=== PATIENT | male | born 1935 | race Hispanic/Latino ===

== ENCOUNTER 2016-10-01 08:33 | Inpatient (IN) | payer MEDICARE, BC ==
--- NOTE | 2016-10-01 09:03 | ED PDOC ---
Arrival/HPI - General Chief Complaint: Medical Clearance Time Seen by Provider: 10/01/16 08:44 Historian: Patient, Family (Daughter) - History of Present Illness Narrative History of Present Illness (Text): 10/01/16 08:51 A 81 year old male, whose past medical history includes hypertension, aortic valve replacement, cardiac stent, [place] and CVA, was brought into the emergency department by daughter complaining of drowsiness this morning. Daughter reports patient has been experiencing hallucinations for the past 4 days. Patient was seen by neurologist yesterday and had an brain MRI scheduled this morning. Patient was started on Seroquel last night and woke up feeling drowsy. Daughter was unable to arouse patient and brought him in for further evaluation. Patient denies any headache, dizziness, weakness, numbness, speech changes, vision changes, fever, chills, body aches, nausea, vomiting, diarrhea, abdominal pain, urinary symptoms, chest pain, shortness of breath, cough or any other complaints. PMD: Dr. iMchael Neurologist: Dr. Byrnes Networking Specialist: Dr. 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) Symptom Course: Resolved Quality: Other Context: Home Past Medical History - Provider Review Nursing Documentation Reviewed: Yes - Infectious Disease Hx of Infectious Diseases: None - Tetanus Immunization Tetanus Immunization: Unknown - Cardiac Hx Hypertension: Yes Other/Comment: 1 cardiac stent - Pulmonary Hx Pneumonia: Yes (2x since ) - Neurological Hx Dizziness: Yes Hx Transient Ischemic Attacks (TIA): Yes Hx Vertigo: Yes - Musculoskeletal/Rheumatological Hx Falls: No - Gastrointestinal Hx Gastrointestinal Disorders: Yes (DOUBLE HERNIA REPAIR) Hx Gastroesophageal Reflux: Yes Hx Nausea: Yes - Genitourinary/Gynecological Hx Genitourinary Disorders: Yes (URINARY FREQUENCY) - Psychiatric Hx Depression: Yes Hx Emotional Abuse: No Hx Physical Abuse: No Hx Substance Use: No - Surgical History Hx Angioplasty: Yes Hx Coronary Artery Bypass Graft: Yes - Anesthesia Hx Anesthesia: No - Suicidal Assessment Feels Threatened In Home Enviroment: No Family/Social History - Physician Review Nursing Documentation Reviewed: Yes Family/Social History: No Known Family HX Smoking Status: Former Smoker Hx Alcohol Use: No Hx Substance Use: No Hx Substance Use Treatment: No Allergies/Home Meds Allergies/Adverse Reactions: Allergies No Known Allergies Allergy (Verified 10/01/16 13:44) Home Medications: Home Meds Medication Instructions Recorded Confirmed Simvastatin [Zocor] 40 mg PO HS 11/07/15 10/01/16 Aspirin [Ecotrin] 81 mg PO DAILY 10/01/16 10/01/16 Benazepril HCl [Lotensin] 20 mg PO DAILY 10/01/16 10/01/16 Bumetanide [Bumex] 0.5 mg PO DAILY 10/01/16 10/01/16 Metoprolol Tartrate [Lopressor] 25 mg PO BID 10/01/16 10/01/16 Omeprazole 20 mg PO DAILY 10/01/16 10/01/16 Paroxetine HCl [Paxil] 20 mg PO DAILY 10/01/16 10/01/16 Quetiapine Fumarate [Seroquel] 50 mg PO HS 10/01/16 10/01/16 Ranitidine HCl [Acid Librarian 150] 150 mg PO BID 10/01/16 10/01/16 Review of Systems - Physician Review All systems were reviewed & negative as marked: Yes - Review of Systems Constitutional: Other (Drowsiness). absent: Fevers, Night Sweats Eyes: absent: Vision Changes Respiratory: absent: SOB, Cough Cardiovascular: absent: Chest Pain Gastrointestinal: absent: Abdominal Pain, Diarrhea, Nausea, Vomiting Genitourinary Male: absent: Dysuria, Frequency, Hematuria, Urinary Output Changes Musculoskeletal: absent: Myalgias Neurological: absent: Headache, Dizziness, Focal Weakness (or numbness), Speech Changes Psychiatric: Other (Hallucinations) Physical Exam Vital Signs Reviewed: Yes Vital Signs Temp Pulse Resp BP Pulse Ox 10/01/16 13:08 44 L 16 146/68 95 10/01/16 10:50 45 L 21 150/65 94 L 10/01/16 10:29 49 L 167/122 H 10/01/16 09:51 47 L 16 167/122 H 90 L 10/01/16 08:43 96 10/01/16 08:35 98.5 F 48 L 18 169/94 H 89 L Temperature: Afebrile Blood Pressure: Hypertensive Pulse: Bradycardic Respiratory Rate: Normal Appearance: Positive for: Well-Appearing, Non-Toxic, Comfortable Pain Distress: None Mental Status: Positive for: Alert and Oriented X 3. No: Confused, Agitated, Lethargic - Systems Exam Head: Present: Atraumatic, Normocephalic Pupils: Present: PERRL Extroacular Muscles: Present: EOMI Conjunctiva: Present: Normal Mouth: Present: Moist Mucous Membranes Neck: Present: Normal Range of Motion Respiratory/Chest: Present: Clear to Auscultation, Good Air Exchange. No: Respiratory Distress, Accessory Muscle Use Cardiovascular: Present: Regular Rate and Rhythm, Normal S1, S2. No: Murmurs Abdomen: Present: Normal Bowel Sounds. No: Tenderness, Distention, Peritoneal Signs Back: Present: Normal Inspection Upper Extremity: Present: Normal Inspection. No: Cyanosis, Edema Lower Extremity: Present: Normal Inspection. No: Edema Neurological: Present: GCS=15, CN II-XII Intact, Speech Normal Skin: Present: Warm, Dry, Normal Color. No: Rashes Psychiatric: Present: Alert, Oriented x 3, Normal Insight, Normal Concentration Medical Decision Making ED Course and Treatment: 10/01/16 08:51 Impression: A 81 year old male with drowsiness. Patient took Seroquel last night, had a brain MRI scheduled this morning. Physical exam unremarkable, patient is alert and oriented times 3. Will order brain MRI as requested by neurologist which was scheduled for this morning. Differential Diagnosis included but are not limited to: Drowsiness secondary to medication reaction, rule out electrolyte imbalance Plan: -- Brain MRI -- EKG -- Labs -- Urinalysis -- Reassess and disposition Progress Notes: 10/01/16 09:[address] Byrnes, who states to reduce the dosage of Seroquel from 50 mg to 25 mg. He asks to complete the brain MRI today and if results are negative patient can be discharged home. 10/01/16 09:21 EKG shows sinus bradycardia at 40 BPM with 1st degree AV block, non-specific intraventricular block. Interpreted by me. Report Date : 10/01/2016 12:57:16 PROCEDURE: MRI BRAIN WITHOUT CONTRAST Dictator : Yehuda Thomas MD IMPRESSION: No acute findings 10/01/16 Patient's BP was elevated and treated with Labetolol. Patient is on beta- regulo at home. HR stable at 40's throughout ED stay. BP improved. Patient's CXR showed b/l infiltrates consistent with Pneumonia and also to consider CHF. Patient and family deny cough, fever or shortness of breathe. There is no lower extremity edema or lung crackles or jvd. BNP was elevated. No Lasix was given at this time and treated for PNA with Cefepime IV. Venous shock panel and LA was normal. PCO2 was elevated. Patient is in no apparently respiratory distress. Oxy sat well at 90% on oxygen. 90% on RA. I discussed the case with Dr. Michael twice with updates on blood work. He requested Dr. Rosales for cardiology. We agreed that patient was stable for Medicine Floor. On reevaluation prior to admission, patient was AAOx3 and smiling as he converses with family. He was hungry so we ordered him a heart healthy diet. His family was explained results and they agree with plan for admission. - Lab Interpretations Lab Results: 10/01/16 09:00 10/01/16 09:00 Lab Results 10/01/16 09:00: WBC 9.5 D, RBC 4.30, Hgb 13.4 L, Hct 40.8 L, MCV 94.9, MCH 31.2 , MCHC 32.8, RDW 14.4, Plt Count 251, MPV 10.4, Gran % 70.7 H, Lymph % (Auto) 14.0 L, [place] % (Auto) 8.1 H, Eos % (Auto) 6.9 H, Baso % (Auto) 0.3, Gran # 6.68 H, Lymph # 1.3, [place] # 0.8 H, Eos # 0.7, Baso # 0.03, Sodium 137, Potassium 4.0 , Chloride 96 L, Carbon Dioxide 35 H, Anion Gap 10, BUN 24 H, Creatinine 1.0, Est GFR ( Amer) > 60, Est GFR (Non-Af Amer) > 60, Random Glucose 101, Calcium 9.3, Phosphorus 3.4, Magnesium 1.3 L, Total Bilirubin 1.6 H, AST 44, ALT 51, Alkaline Phosphatase 68, Lactate Dehydrogenase 736 H, Total Creatine Kinase 120, Troponin I 0.06 D, Total Protein 6.9, Albumin 3.4, Globulin 3.5, Albumin/Globulin Ratio 1.0 L, Alcohol, Quantitative < 10 I have reviewed the lab results: Yes - RAD Interpretation Radiology Orders: 10/01/16 08:56 BRAIN WITHOUT CONTRAST [MRI] Stat 10/01/16 09:45 CXR [CHEST PORTABLE] [RAD] Stat - Medication Orders Current Medication Orders: Aspirin (Ecotrin) 81 mg PO DAILY [facility] Atorvastatin Calcium (Lipitor) 20 mg PO HS [facility] Azithromycin (Zithromax) 500 mg PO DAILY [facility] PRN Reason: Protocol Famotidine (Pepcid) 20 mg PO BID [facility] Furosemide (Lasix) 20 mg IVP Q12 [facility] Lisinopril (Zestril) 20 mg PO DAILY [facility] Metoprolol Tartrate (Lopressor) 25 mg PO BID [facility] Pantoprazole Sodium (Protonix Ec Tab) 40 mg PO ACB [facility] Paroxetine HCl (Paxil) 20 mg PO DAILY [facility] Discontinued Medications Albuterol/Ipratropium (Duoneb 3 Mg/0.5 Mg (3 Ml) Ud) 3 ml IH STAT STA Stop: 10/01/16 09:53 Last Admin: 10/01/16 10:31 Dose: 3 ML Sodium Chloride (Sodium Chloride 0.9%) 500 mls @ 999 mls/hr IV .Q31M STA Stop: 10/01/16 10:39 Last Admin: 10/01/16 10:29 Dose: 999 MLS/HR eMAR Start Stop Document 10/01/16 10:29 HI (Rec: 10/01/16 10:29 [place] [id number]) Intravenous Solution Start Date 10/01/16 Start Time 10:29 Cefepime HCl (Maxipime 2gm) 100 mls @ 100 mls/hr IVPB STAT STA PRN Reason: Protocol Stop: 10/01/16 11:27 Last Admin: 10/01/16 11:07 Dose: 100 MLS/HR eMAR Start Stop Document 10/01/16 11:07 HI (Rec: 10/01/16 11:07 [place] [id number]) Intravenous Solution Start Date 10/01/16 Start Time 11:07 Labetalol HCl (Trandate) 10 mg IV STAT STA Stop: 10/01/16 09:53 Last Admin: 10/01/16 10:29 Dose: 10 MG MAR Pulse and Blood Pressure Document 10/01/16 10:29 HI (Rec: 10/01/16 10:30 [place] [id number]) Pulse Pulse Rate (60-90) 49 Blood Pressure Blood Pressure (100/60-150/90) 167/122 eMAR Start Stop Document 10/01/16 10:29 HI (Rec: 10/01/16 10:30 [place] [id number]) Intravenous Solution Start Date 10/01/16 Start Time 10:30 - Scribe Statement The provider has reviewed the documentation as recorded by the Scribe Lois Painter Provider Scribe Attestation: All medical record entries made by the Scribe were at my direction and personally dictated by me. I have reviewed the chart and agree that the record accurately reflects my personal performance of the history, physical exam, medical decision making, and the department course for this patient. I have also personally directed, reviewed, and agree with the discharge instructions and disposition. Disposition/Present on Arrival - Present on Arrival Any Indicators Present on Arrival: No History of DVT/PE: No History of Uncontrolled Diabetes: No Urinary Catheter: No History of Decub. Ulcer: No History Surgical Site Infection Following: None - Disposition Have Diagnosis and Disposition been Completed?: Yes Diagnosis: Medication reaction, Pneumonia Disposition: HOSPITALIZED Disposition Time: 10:46 Patient Plan: Admission Condition: FAIR
[2016-10-01 09:28] LABS: ADD MANUAL DIFF? NO
[2016-10-01 09:40] LABS: ALKALINE PHOSPHATASE 68 U/L (38-133); ALT/SGPT 51 U/L (7-56); AST/SGOT 44 U/L (15-59); BASO # 0.03 K/mm3 (0.0-2.0); BASO % 0.3 % (0.0-3.0); BILIRUBIN,TOTAL 1.6 mg/dL (0.2-1.3); BLOOD UREA NITROGEN 24 mg/dL (7-21); CALCIUM 9.3 mg/dL (8.4-10.5); CARBON DIOXIDE 35 mmol/L (21-33); CHLORIDE 96 mmol/L (98-107); EOS # 0.7 (0.0-0.7); EOS % 6.9 % (1.5-5.0); GFR AFRICAN-AMERICAN > 60; GLUCOSE,RANDOM 101 mg/dL (70-110); GRAN # 6.68 (1.4-6.5); GRAN % 70.7 % (50.0-68.0); HEMATOCRIT 40.8 % (42.0-52.0); LYMPH # 1.3 (1.2-3.4); MAGNESIUM 1.3 mg/dL (1.7-2.2); MEAN CELL VOLUME 94.9 fL (80.0-105.0); MEAN CORPUSCULAR HEMOGLOBIN 31.2 pg (25.0-35.0); MEAN CORPUSCULAR HGB CONC 32.8 g/dl (31.0-37.0); MEAN PLATELET VOLUME 10.4 fl (7.0-11.0); MONO # 0.8 (0.1-0.6); MONO % 8.1 % (1.0-6.0); PHOSPHOROUS 3.4 mg/dL (2.5-4.5); PLATELET COUNT 251 10^3/uL (120.0-450.0); RED CELL DISTRIBUTION WIDTH 14.4 % (11.5-14.5); SODIUM 137 mmol/L (132-148); TOTAL PROTEIN 6.9 g/dL (5.8-8.3); WHITE BLOOD COUNT 9.5 10^3/ul (4.5-11.0)
[2016-10-01 09:51] LABS: TROPONIN I 0.06 ng/mL
[2016-10-01] MEDS ORDERED: Labetalol 5 mg/ml Inj 20ML IV STA (09:52)
[2016-10-01] MEDS ORDERED: Albuterol-Ipratrop 3 mg / 0.5 (3 ml) UD IH STA (09:52)
[2016-10-01] MEDS ORDERED: Sodium Chloride 0.9% 500 ML IV STA (10:09)
--- NOTE | 2016-10-01 10:18 | RAD ---
HISTORY: r/o pna COMPARISON: 08/05/2016 FINDINGS: LUNGS: Infiltrate at right lung base and left perihilar infiltrate suspicious for pneumonia versus CHF PLEURA: No significant pleural effusion identified, no pneumothorax apparent. CARDIOVASCULAR: Normal. OSSEOUS STRUCTURES: There is moderate scoliosis convex to the right VISUALIZED UPPER ABDOMEN: Normal. OTHER FINDINGS: None. IMPRESSION: Infiltrate at right lung base and left perihilar infiltrate suspicious for pneumonia versus CHF
[2016-10-01] MEDS ORDERED: Cefepime IV 2 gm in NS 100 ML IVPB STA (10:28)
[2016-10-01 11:19] LABS: VENOUS BLOOD GAS BASE EXCESS 6.5 mmol/L (0.0-2.0); VENOUS BLOOD PH 7.27 (7.32-7.43)
[2016-10-01 11:27] LABS: PH,URINE 5.5 (4.7-8.0); URINE BILIRUBIN SMALL (NEGATIVE); URINE BLOOD TRACE-INTACT (NEGATIVE); URINE GLUCOSE (UA) NEGATIVE (NEGATIVE); URINE KETONE NEGATIVE (NEGATIVE); URINE LEUKOCYTE ESTERASE TRACE Leu/uL (NEGATIVE); URINE PROTEIN 100 mg/dL (<30 mg/dL)
[2016-10-01 11:33] LABS: URINE APPEARANCE CLEAR (CLEAR); URINE COLOR YELLOW (YELLOW)
[2016-10-01 12:06] LABS: URINE RBC 0 - 2 /hpf (0-2)
[2016-10-01 12:07] LABS: URINE BACTERIA FEW (NEG); URINE EPITHELIAL CELLS 0 - 2 /hpf (0-5)
--- NOTE | 2016-10-01 12:58 | MRI ---
PROCEDURE: MRI BRAIN WITHOUT CONTRAST HISTORY: altered mental status COMPARISON: 12/13/2015 TECHNIQUE: Multiplanar, multisequence MR images of the brain were obtained without intravenous contrast enhancement. FINDINGS: HEMORRHAGE: None DWI: No evidence of an acute or early subacute infarction. BRAIN PARENCHYMA: No mass effect or edema. Chronic microvascular changes are seen in the periventricular white matter. No acute findings VENTRICLES: Unremarkable. No hydrocephalus. CRANIUM: Unremarkable. ORBITS: Grossly unremarkable. PARANASAL SINUSES/MASTOIDS: Clear VASCULAR SYSTEM: Skull base flow voids intact. OTHER FINDINGS: None. IMPRESSION: No acute findings
[2016-10-01 17:08] VITALS: BMI 22.8
[2016-10-01] MEDS ORDERED: Pneumococcal 23-Valent Vaccine IM ONE (17:08)
[2016-10-01] MEDS ORDERED: Non Formulary Medication (Simvastatin [Zocor] 40 MG) PO SCH (22:00)
[2016-10-02] MEDS: Pantoprazole 40 mg EC Tab PO SCH (09:23)
[2016-10-02] MEDS ORDERED: Magnesium Sulfate 2 GM in Sodium Chloride 0.9% 100 ML IV ONE (10:24)
--- NOTE | 2016-10-02 10:35 | CON ---
DATE: 10/02/2016 INDICATIONS: Altered mental status, bradycardia. HISTORY OF PRESENT ILLNESS: This is an 81-year-old man admitted yesterday when he was found to have several days of altered mental status with hallucinations. He has been seen by Dr. Byrnes and his Seroquel was increased. He became unresponsive and was brought to the Emergency Room. He was found to have bradycardia with a heart rate in the 40s and hypertension. He was given labetalol. The chest x-ray shows a questionable pneumonia. He was admitted to 5. Today, he is resting comfortably in bed. He does not describe chest pain or shortness of breath. There is no orthopnea, PND, syncope, vertigo, palpitation, edema, claudication, fever, chills, cough, sputum production, hemoptysis, abdominal pain, nausea, vomiting, diarrhea, constipation, or melena. PAST MEDICAL HISTORY: Notable for hypertension, remote aortic valve replacement , coronary artery disease with myocardial infarction and coronary intervention. He has moderate mitral regurgitation on an echocardiogram last year. There is a history of hyperlipidemia, scoliosis, cognitive dysfunction and left bundle branch block. There is no history of diabetes. There is a history of stroke. There is no history of gout, rheumatic fever, congestive heart failure , arrhythmia. MEDICATIONS: At the time of admission include simvastatin, aspirin, Lotensin, Bumex, metoprolol, omeprazole, Paxil, Seroquel, Zantac. ALLERGIES: There are no known medication allergies. SOCIAL HISTORY: He lives at home. He does not smoke cigarettes. He does not drink alcohol. He is ambulatory. FAMILY HISTORY: Noncontributory. REVIEW OF SYSTEMS: A 10-point review of systems otherwise unremarkable except as noted above. PHYSICAL EXAMINATION: GENERAL: He is an elderly man resting in bed on 5R in no acute distress. VITAL SIGNS: Heart rate is in the 40s with a blood pressure of 140/57. O2 sat 95% on room air and nasal cannula, respirations 18. HEENT: Reveals no neck vein distention, thyromegaly, or carotid bruit. Mucous membranes moist. Conjunctivae are pink. NECK: Supple. LUNGS: Lung willson scattered rhonchi. HEART: Revealed normal first and second heart sounds with a systolic murmur along the left sternal border. ABDOMEN: Soft. Bowel sounds were present. No mass, organomegaly, tenderness, rebound, guarding, CVA tenderness or palpable abdominal aortic aneurysm. EXTREMITIES: Revealed no cyanosis, clubbing, or edema. NEUROLOGIC: He was awake, alert and oriented. SKIN: Warm and dry. No rash or cellulitis. PSYCHIATRIC: Normal as to mood and affect. LABORATORY AND IMAGING: A chest x-ray is a portable study. It is read as infiltrate at the right base and left perihilar infiltrate suspicious for pneumonia versus CHF. Marked scoliosis is noted. Electrocardiogram demonstrates sinus bradycardia with markedly prolonged first degree heart block and left bundle branch block. A brain MRI reveals no acute findings. White count is normal, hemoglobin 13.4, hematocrit 40.8, platelet count 251,000. Electrolytes notable for a chloride of 96, carbon dioxide 35, BUN 24, creatinine 1.0, blood sugar 101, magnesium low at 1.3. Total bilirubin elevated at 1.6. AST, ALT, alk phos unremarkable. CK 120. Troponins negative x 2. BNP 3590. Urinalysis is noted. Toxic screen is negative. Alcohol less than 10. IMPRESSION: The patient is an 81-year-old man admitted with altered mental status over the course of several days while on increased dose of Seroquel, found to have bradycardia with markedly prolonged SD interval and left bundle branch block which is chronic. Possible pneumonia, possible congestive heart failure, history of aortic valve replacement, prior myocardial infarction and coronary stent. At this time, I would transfer him to a telemetry bed for cardiac monitoring. I will put his metoprolol on hold. I would put Seroquel on hold if it is okay with neurology. I am suspicious that there may be episodes of high grade AV block beyond what we have seen so far. His magnesium should be replaced. I will check an echocardiogram. He will have a neurologic evaluation. He has been cultured. He is getting antibiotics for possible pneumonia. We will continue aspirin, Lasix, Lipitor, Paxil, Pepcid, Protonix, lisinopril and Zithromax. We will check stool for occult blood. We will monitor I's and O's. He can be out of bed to a chair. I will follow along with you. I will make additional recommendations based on his clinical course. Uriel Bronson MD cc: [id number] TT: 10/02/2016 10:34:42 Confirmation # [id number] Dictation # [id number] MTDD
--- NOTE | 2016-10-02 10:59 | HP ---
HISTORY OF PRESENT ILLNESS: An 81-year-old white male with history of coronary artery disease and CV A in the past, history of mild hypertension, severe kyphoscoliosis. The patient recently had seen Dr Babmi Byrnes and was put on Seroquel at night for possible MRI of the brain. The patient had severe fat igue and weakness in the morning followed by shortness of breath, was brought to Emergency Room by th e family, was found to have congestive heart failure with BNP of over 3500 and possible pneumonia wit h normal white count. The patient was afebrile. The patient was also bradycardic with heart rate do wn into the low 40s. The patient had been on metoprolol at home. The patient denies tobacco, alcoho l abuse. PAST SURGICAL HISTORY: Noncontributory. SOCIAL HISTORY: He is nonsmoker, nondrinker. REVIEW OF SYSTEMS: Positive for fatigue, weakness, and drowsiness. He denies chest pain, palpitatio ns. He does complain of shortness of breath and some cough, is nonproductive. He denies any fever, chills. He denies any nausea, vomiting, diarrhea. He does complain of some difficulty with balance, some paresthesias of the extremities and some lightheadedness for his neurological review of systems . PAST MEDICAL HISTORY: Includes fatigue and weakness dating 1 day. PHYSICAL EXAMINATION: GENERAL: Shows a well-developed but tall, fatigued white male in no apparent distress. HEENT: Essentially normal limits. HEART: Regular sinus rhythm with a systolic ejection murmur at left sternal border, bradyarrhythmia and a positive S4. CHEST: He has a left kyphoscoliosis. LUNGS: He has decreased breath sounds at the right base and rales at the left base. Percussion is n ormal except for decreased percussion at the right base. ABDOMEN: Benign. EXTREMITIES: Without cyanosis, clubbing or edema. NEUROLOGIC: The patient is awake and oriented x 3. Neurologic examination grossly intact. Strength is equal in the upper and lower extremities. Reflexes are 2+ bilateral and balance is not done at t his point because the patient's fatigue. IMPRESSION: An 81-year-old white male with history of coronary artery disease, history of cerebrovas cular accident, kyphoscoliosis, presenting with congestive heart failure, bradyarrhythmia and possibl e pneumonia. Treatment is as stated in the chart. Ramy Michael MD cc: [id number] TT: 10/02/2016 10:58:59 jn
--- NOTE | 2016-10-02 11:11 | CARD ---
APPROVED REPORT EKG Measurement Heart [id number] <Conclusion> Sinus bradycardia with markedly prolomged NC LBBB
[2016-10-02] MEDS: Magnesium Sulfate 2 GM in Dextrose 5% In Water 100 ML IV ONE ×2 (12:25→13:26)
[2016-10-02] MEDS: Magnesium Oxide 400 mg Tab UD PO SCH (17:43)
[2016-10-03 07:21] LABS: BLOOD UREA NITROGEN 21 mg/dL (7-21); CALCIUM 9.1 mg/dL (8.4-10.5); CARBON DIOXIDE 36 mmol/L (21-33); CHLORIDE 94 mmol/L (95-110); GFR AFRICAN-AMERICAN > 60; GLUCOSE,RANDOM 88 mg/dL (70-110); MAGNESIUM 1.5 mg/dL (1.7-2.2); POTASSIUM 3.9 mmol/L (3.6-5.0); SODIUM 137 mmol/L (132-148)
--- NOTE | 2016-10-03 07:43 | CP.PCM.PN ---
Subjective - Date & Time of Evaluation Date of Evaluation: 10/03/16 Time of Evaluation: 08:00 - Subjective Subjective: Stable on 2R. No CP, SOB, dizziness or syncope. He is not sure if he wants a PPM. We will d/w his daughter as well. V/S noted. Mostly CHB with VR 40 - 50's PE: Lungs: clear Cor.: sys. murmur Abd.: soft Ext.: no edema Neuro.: alert Labs noted: Mg++= 1.5 BC x2 NG at 24 hrs. ECG 10/02: CHB, LBBB Objective - Vital Signs/Intake and Output Vital Signs (last 24 hours): Temp Pulse Resp BP Pulse Ox 97.3 F L 85 20 177/69 H 94 L 10/03/16 05:41 10/03/16 05:41 10/03/16 05:41 10/03/16 05:41 10/03/16 05:41 Intake and Output: 10/03/16 10/03/16 06:59 18:59 Output Total 1425 Balance -1425 - Medications Medications: Current Medications Aspirin (Ecotrin) 81 mg PO DAILY [facility] Last Admin: 10/02/16 09:23 Dose: 81 mg Atorvastatin Calcium (Lipitor) 20 mg PO HS [facility] Last Admin: 10/02/16 22:57 Dose: 20 mg Azithromycin (Zithromax) 500 mg PO DAILY [facility] PRN Reason: Protocol Last Admin: 10/02/16 09:24 Dose: 500 mg Famotidine (Pepcid) 20 mg PO BID [facility] Last Admin: 10/02/16 17:48 Dose: 20 mg Furosemide (Lasix) 20 mg IVP Q12 [facility] Last Admin: 10/02/16 22:57 Dose: 20 mg Lisinopril (Zestril) 20 mg PO DAILY [facility] Last Admin: 10/02/16 12:59 Dose: 20 mg Magnesium Oxide (Mag-Ox) 400 mg PO BID [facility] Last Admin: 10/02/16 17:43 Dose: 400 mg Metoprolol Tartrate (Lopressor) 25 mg PO BID [facility] Last Admin: 10/02/16 09:14 Dose: Not Given Pantoprazole Sodium (Protonix Ec Tab) 40 mg PO ACB [facility] Last Admin: 10/02/16 09:23 Dose: 40 mg Paroxetine HCl (Paxil) 20 mg PO DAILY [facility] Last Admin: 10/02/16 09:23 Dose: 20 mg - Labs Labs: 10/03/16 06:57 Assessment and Plan - Assessment and Plan (Free Text) Plan: Assessment: AMS CHB with VR 40 - 50'2 Possible pneumonia AVR CAD/LA/PCI CVA HBP Kyphoscoliosis Plan: Continue off metoprolol and monitor on tel. Avoid neg. chronotopic meds. PPM if he will agree. I will speak with his daughter. IV > PO Lasix PO mag. AB as per Dr. Alec VILLARREAL with assistance only. High Fall Risk. Monitor: labs, tel., I/O, Mg++ level, etc.
[2016-10-03] MEDS: Pantoprazole 40 mg EC Tab PO SCH (09:31)
--- NOTE | 2016-10-03 09:32 | CARD ---
APPROVED REPORT EKG Measurement Heart [id number] <Conclusion> CHB with VR 48 BPM LBBB pattern
--- NOTE | 2016-10-03 09:53 | CARD ---
APPROVED REPORT EKG Measurement Heart [id number] <Conclusion> Probably CHB with VR at 46 BPM. LBBB pattern
[2016-10-03] MEDS: Magnesium Oxide 400 mg Tab UD PO SCH ×2 (09:56→17:12)
--- NOTE | 2016-10-04 05:37 | CP.PCM.PN ---
Subjective - Date & Time of Evaluation Date of Evaluation: 10/04/16 Time of Evaluation: 05:37 - Subjective Subjective: Patient was seen at bed side because his BP was 192/75. Has no complaints. Denies headache, dizziness, heaviness in head, lightheadedness,chest pain, sob. Medical record was reviewed. This 81 year old man was admitted sob, weakness, fatigue,CHF, PNA?Bradycardia. Has PMH of HTN, CAD ,CVA, Kyphoscoliosis, AVR, [place]. Objective - Vital Signs/Intake and Output Vital Signs (last 24 hours): Temp Pulse Resp BP Pulse Ox 98.0 F 51 L 19 172/73 H 95 10/04/16 00:01 10/04/16 00:01 10/04/16 00:01 10/04/16 00:01 10/04/16 00:01 Intake and Output: 10/03/16 10/04/16 18:59 06:59 Intake Total 740 Output Total 650 Balance 90 - Medications Medications: Current Medications Aspirin (Ecotrin) 81 mg PO DAILY REPLACED BY [facility] Last Admin: 10/03/16 09:56 Dose: 81 mg Atorvastatin Calcium (Lipitor) 20 mg PO HS REPLACED BY [facility] Last Admin: 10/03/16 21:32 Dose: 20 mg Azithromycin (Zithromax) 500 mg PO DAILY REPLACED BY [facility] PRN Reason: Protocol Last Admin: 10/03/16 09:56 Dose: 500 mg Famotidine (Pepcid) 20 mg PO BID REPLACED BY [facility] Last Admin: 10/03/16 17:12 Dose: 20 mg Furosemide (Lasix) 40 mg PO DAILY REPLACED BY [facility] Last Admin: 10/03/16 09:57 Dose: 40 mg Lisinopril (Zestril) 20 mg PO DAILY REPLACED BY [facility] Last Admin: 10/03/16 09:57 Dose: 20 mg Magnesium Oxide (Mag-Ox) 400 mg PO BID REPLACED BY [facility] Last Admin: 10/03/16 17:12 Dose: 400 mg Pantoprazole Sodium (Protonix Ec Tab) 40 mg PO ACB REPLACED BY [facility] Last Admin: 10/03/16 09:31 Dose: 40 mg Paroxetine HCl (Paxil) 20 mg PO DAILY REPLACED BY [facility] Last Admin: 10/03/16 09:57 Dose: 20 mg - Labs Labs: 10/03/16 06:57 - Constitutional Appears: Well, No Acute Distress - Head Exam Head Exam: ATRAUMATIC, NORMAL INSPECTION, NORMOCEPHALIC - Eye Exam Eye Exam: Normal appearance - ENT Exam ENT Exam: Normal External Ear Exam - Neck Exam Neck Exam: Normal Inspection - Respiratory Exam Respiratory Exam: NORMAL BREATHING PATTERN - Cardiovascular Exam Cardiovascular Exam: absent: JVD - GI/Abdominal Exam GI & Abdominal Exam: absent: Distended - Rectal Exam Rectal Exam: Deferred - Extremities Exam Extremities Exam: Normal Inspection - Back Exam Back Exam: NORMAL INSPECTION - Neurological Exam Neurological Exam: Alert, Oriented x3 - Psychiatric Exam Psychiatric exam: Normal Affect, Normal Mood - Skin Skin Exam: Normal Color Assessment and Plan - Assessment and Plan (Free Text) Assessment: A/P:Elevated blood pressure reading. CHF. PNA? HTN. Will give lisinopril now instead of at 10AM. Continue present management.
[2016-10-04 07:28] LABS: BLOOD UREA NITROGEN 23 mg/dL (7-21); CALCIUM 9.2 mg/dL (8.4-10.5); CARBON DIOXIDE 35 mmol/L (21-33); CHLORIDE 95 mmol/L (98-107); GFR AFRICAN-AMERICAN > 60; GLUCOSE,RANDOM 85 mg/dL (70-110); POTASSIUM 4.1 mmol/L (3.6-5.0); SODIUM 136 mmol/L (132-148)
[2016-10-04 07:44] LABS: MAGNESIUM 1.6 mg/dL (1.7-2.2)
[2016-10-04] MEDS: Pantoprazole 40 mg EC Tab PO SCH (08:28)
--- NOTE | 2016-10-04 08:42 | CP.PCM.PN ---
Subjective - Date & Time of Evaluation Date of Evaluation: 10/04/16 Time of Evaluation: 08:00 - Subjective Subjective: Stable on 2R. No CP, SOB, dizziness or syncope. He is still not sure if he wants a PPM. V/S noted. Mostly CHB with VR 40 - 50's PE: Lungs: clear Cor.: sys. murmur Abd.: soft Ext.: no edema Neuro.: alert Labs noted: Mg++= 1.6 BC x2 NG at 48 hrs. ECG 10/03: CHB, LBBB Objective - Vital Signs/Intake and Output Vital Signs (last 24 hours): Temp Pulse Resp BP Pulse Ox 98.0 F 44 L 22 192/75 H 96 10/04/16 05:42 10/04/16 06:06 10/04/16 05:42 10/04/16 06:06 10/04/16 05:42 Intake and Output: 10/04/16 10/04/16 06:59 18:59 Output Total 100 Balance -100 - Medications Medications: Current Medications Amlodipine Besylate (Norvasc) 2.5 mg PO DAILY [facility] Aspirin (Ecotrin) 81 mg PO DAILY [facility] Last Admin: 10/03/16 09:56 Dose: 81 mg Atorvastatin Calcium (Lipitor) 20 mg PO HS [facility] Last Admin: 10/03/16 21:32 Dose: 20 mg Azithromycin (Zithromax) 500 mg PO DAILY [facility] PRN Reason: Protocol Last Admin: 10/03/16 09:56 Dose: 500 mg Famotidine (Pepcid) 20 mg PO BID [facility] Last Admin: 10/03/16 17:12 Dose: 20 mg Furosemide (Lasix) 40 mg PO DAILY [facility] Last Admin: 10/03/16 09:57 Dose: 40 mg Lisinopril (Zestril) 20 mg PO DAILY [facility] Last Admin: 10/04/16 06:06 Dose: 20 mg Magnesium Oxide (Mag-Ox) 400 mg PO BID [facility] Last Admin: 10/03/16 17:12 Dose: 400 mg Pantoprazole Sodium (Protonix Ec Tab) 40 mg PO ACB [facility] Last Admin: 10/04/16 08:28 Dose: 40 mg Paroxetine HCl (Paxil) 20 mg PO DAILY [facility] Last Admin: 10/03/16 09:57 Dose: 20 mg - Labs Labs: 10/04/16 06:30 Assessment and Plan - Assessment and Plan (Free Text) Plan: Assessment: AMS CHB with VR 40 - 50's Possible pneumonia AVR CAD/[place]/PCI CVA HBP Kyphoscoliosis Plan: Continue off metoprolol and monitor on tel. Avoid neg. chronotopic meds. EP Eval./PPM if he will agree. Dr. Friedman will also speak to him. PO Lasix PO mag. Add amlodipine 2.5 mg./day for elevated BPs AB as per Dr. Alec VILLARREAL with assistance only. High Fall Risk. Monitor: labs, tel., I/O, Mg++ level, etc.
--- NOTE | 2016-10-04 09:19 | PN ---
DATE: 10/04/2016 SUBJECTIVE: An 81-year-old white male admitted to the hospital with congestive heart failure and bra dycardia. The patient was taken off his metoprolol. Heart rate still is in the high 40s/low 50s. PHYSICAL EXAMINATION: VITAL SIGNS: The patient's blood pressure is slightly elevated at 192/75. He is afebrile. Average pulse is 44. LUNGS: He has less rales. CARDIAC: His heart rate is bradycardic. LABORATORY DATA: Unremarkable with H and H that is normal. Kidney function is normal. Magnesium is up to 1.6. Troponins are negative x 2. Stool occult blood is negative. His tox screen was negativ e. The patient was seen in consultation by Dr. Bronson. Discussion as far as possible elective pacemaker insertion. The patient has a history of open heart surgery, CVA in the past, chronic obstructive pu lmonary disease, kyphoscoliosis; high blood pressure, he is off metoprolol. We will discuss possible pacemaker with Dr. Friedman over the next several days. 12-POINT REVIEW OF SYSTEMS: Unremarkable. The patient has no complaints of shortness of breath. PLAN: Continue diuretic. Continue blood pressure management. Possible pacemaker in the near future . Ramy Michael MD cc: [id number] TT: 10/04/2016 09:18:42 Confirmation # [id number] Dictation # [id number] sebas
--- NOTE | 2016-10-04 09:30 | CARD ---
APPROVED REPORT EKG Measurement Heart [id number] P65 [id number] <Conclusion> CHB with junctional or idioventricular rhythm, rate = 46 BPM LBBB pattern No change
[2016-10-04] MEDS: Magnesium Oxide 400 mg Tab UD PO SCH ×2 (09:33→17:55)
[2016-10-04 22:53] LABS: BLOOD UREA NITROGEN 25 mg/dL (7-21); CALCIUM 9.2 mg/dL (8.4-10.5); CARBON DIOXIDE 39 mmol/L (21-33); CHLORIDE 93 mmol/L (98-107); GFR AFRICAN-AMERICAN > 60; GLUCOSE,RANDOM 95 mg/dL (70-110); MAGNESIUM 1.5 mg/dL (1.7-2.2); PHOSPHOROUS 3.5 mg/dL (2.5-4.5); POTASSIUM 4.4 mmol/L (3.6-5.0); SODIUM 134 mmol/L (132-148)
--- NOTE | 2016-10-05 01:58 | CP.PCM.PN ---
Subjective - Date & Time of Evaluation Date of Evaluation: 10/05/16 Time of Evaluation: 01:55 - Subjective Subjective: Patient was seen because it was nurse's concern that he was not arousable even after giving a sternal rub.I asked him questions like where is he at, what day, month is this, he answered 'No ' to all questions. Pertinent medical record was reviewed. This 81 year old white male was admitted with fatigue ,weakness, sob, CHF. Has PMH of CHF,CAD, [place] , CVA , COPD,HTN, Kyphoscoliosis. Objective - Vital Signs/Intake and Output Vital Signs (last 24 hours): Temp Pulse Resp BP Pulse Ox 98.2 F 43 L 18 147/92 H 94 L 10/04/16 19:40 10/04/16 22:00 10/04/16 19:40 10/04/16 19:40 10/04/16 19:40 Intake and Output: 10/04/16 10/05/16 18:59 06:59 Intake Total 660 540 Output Total 325 Balance 660 215 - Medications Medications: Current Medications Amlodipine Besylate (Norvasc) 2.5 mg PO DAILY [facility] Last Admin: 10/04/16 09:34 Dose: 2.5 mg Aspirin (Ecotrin) 81 mg PO DAILY [facility] Last Admin: 10/04/16 09:33 Dose: 81 mg Atorvastatin Calcium (Lipitor) 20 mg PO HS [facility] Last Admin: 10/04/16 22:02 Dose: 20 mg Azithromycin (Zithromax) 500 mg PO DAILY [facility] PRN Reason: Protocol Last Admin: 10/04/16 09:35 Dose: 500 mg Famotidine (Pepcid) 20 mg PO BID [facility] Last Admin: 10/04/16 17:55 Dose: 20 mg Furosemide (Lasix) 40 mg PO DAILY [facility] Last Admin: 10/04/16 09:35 Dose: 40 mg Lisinopril (Zestril) 20 mg PO DAILY [facility] Last Admin: 10/04/16 06:06 Dose: 20 mg Magnesium Oxide (Mag-Ox) 400 mg PO BID [facility] Last Admin: 10/04/16 17:55 Dose: 400 mg Pantoprazole Sodium (Protonix Ec Tab) 40 mg PO ACB [facility] Last Admin: 10/04/16 08:28 Dose: 40 mg Paroxetine HCl (Paxil) 20 mg PO DAILY [facility] Last Admin: 10/04/16 09:34 Dose: 20 mg - Labs Labs: 10/04/16 22:37 - Constitutional Appears: Well, No Acute Distress - Head Exam Head Exam: ATRAUMATIC, NORMAL INSPECTION, NORMOCEPHALIC - Eye Exam Eye Exam: Normal appearance Pupil Exam: PERRL - ENT Exam ENT Exam: Normal External Ear Exam - Neck Exam Neck Exam: Normal Inspection - Respiratory Exam Respiratory Exam: NORMAL BREATHING PATTERN - Cardiovascular Exam Cardiovascular Exam: absent: JVD - GI/Abdominal Exam GI & Abdominal Exam: absent: Distended - Rectal Exam Rectal Exam: Deferred - Extremities Exam Extremities Exam: Normal Inspection - Back Exam Back Exam: NORMAL INSPECTION - Neurological Exam Neurological Exam: Altered (mental status) Neuro motor strength exam: Left Upper 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 Lethargy. R/O Co2 retention. R/O electrolyte imbalance. CHF. CAD. Hx [place]. Weakness/Fatigue. BMP,Mag,Phos,ABG. Observation. Discuss with Dr.cardiello ALDANA. Magnesium level was 1.5. A 1 Gm Mag Alexis was ordered. ABG was not done because patient was moving.
[2016-10-05 01:59] VITALS: RESP 20; O2SAT 95
[2016-10-05 05:22] VITALS: BP 161/61; PULSE 44; TEMP 98.3
[2016-10-05 07:27] LABS: BLOOD UREA NITROGEN 24 mg/dL (7-21); CALCIUM 9.2 mg/dL (8.4-10.5); CHLORIDE 94 mmol/L (95-110); GFR AFRICAN-AMERICAN > 60; GLUCOSE,RANDOM 83 mg/dL (70-110); MAGNESIUM 1.8 mg/dL (1.7-2.2); SODIUM 139 mmol/L (132-148)
[2016-10-05 07:37] LABS: CARBON DIOXIDE 39 mmol/L (21-33); POTASSIUM 4.2 mmol/L (3.6-5.0)
[2016-10-05] MEDS: Pantoprazole 40 mg EC Tab PO SCH (08:09)
[2016-10-05 08:54] LABS: ALB/GLOB RATIO 0.9 (1.1-1.8); ALKALINE PHOSPHATASE 60 U/L (38-133); ALT/SGPT 43 U/L (7-56); AST/SGOT 45 U/L (15-59); BILIRUBIN,DIRECT 0.5 mg/dL (0.0-0.4); BILIRUBIN,TOTAL 0.8 mg/dL (0.2-1.3); TOTAL PROTEIN 6.3 g/dL (5.8-8.3)
[2016-10-05 09:15] LABS: INR 1.07 (0.93-1.08)
[2016-10-05] MEDS: Magnesium Oxide 400 mg Tab UD PO SCH (10:46)
--- NOTE | 2016-10-05 18:14 | DS ---
The patient is an 81-year-old white male discharged 10/05/2016 to [facility] for a p acemaker insertion. The patient was persistently bradycardic despite being taken off beta blockers. The patient had some shortness of breath and dyspnea on exertion and also was found to have elevated BNP consistent with congestive heart failure. The patient was evaluated by Dr. Friedman and Dr. Laura galarza and was found in need of a pacemaker. He was transferred to [facility] for a pacemaker inserti on, to follow up as an outpatient. FINAL DISCHARGE DIAGNOSES: , kyphoscoliosis, congestive heart failure acute on top of combined systolic and diastolic heart failure, bradyarrhythmia, history of cerebrovascular accident. Ramy Michael MD cc: [id number] TT: 10/05/2016 18:14:00 wv
--- NOTE | 2016-10-07 11:01 | PQF PNEUMO ---
10/07/16 Dr. Michael, Pneumonia is documented as possible and questionable on several notes. You do not document this on your summary. Was pneumonia ruled out, ruled in, other? If ruled in, was pneumonia present on admission? Thank you. Clarification of your documentation is requested to better reflect the severity of illness and intensity of treatment of your patient. Indicators present [] Documented diagnosis of pneumonia [] X-ray findings: [] Positive Sputum cultures [] Cough w/ fever [] Abnormal lungs sounds [] Poor gag reflex [] Speech consults/swallow evaluation [] Vent dependence [] Other: [] Location in the medical record that reflects the above clinical findings: [] Treatment Provided: [] PHYSICIAN'S RESPONSE Based on your medical judgment of the clinical indicators outlined above, are you treating this patient for a known or suspected: [] Aspiration pneumonia [] Community acquired pneumonia [] Ventilator associated pneumonia [] Viral pneumonia [] Bacterial pneumonia Please specify organism: [] [] Other, please indicate [] If Unable to Determine, please check the box, sign and date. Present On Admission (POA) Indicator: [] Present at the time of admission [] Not present at the time of admission [] Clinically Undetermined In responding to this query, please exercise your independent professional judgment. The fact that a question is asked does not imply that any particular answer is desired or expected. Thank you for your clarification on this documentation. If you have any questions please call:[ ] * Thank you, [ ] postal mail carrier LUCY
--- NOTE | 2016-10-08 08:49 | PQF PNEUMO ---
10/08/16 Dr. Michael, You signed the previous query form on this; however, I do not see your answer to the question. Please indicate whether pneumonia was ruled out, ruled in, undetermined for this patient. If pneumonia was ruled in, was this present on admission? Thank you. Clarification of your documentation is requested to better reflect the severity of illness and intensity of treatment of your patient. Indicators present [] Documented diagnosis of pneumonia [] X-ray findings: [] Positive Sputum cultures [] Cough w/ fever [] Abnormal lungs sounds [] Poor gag reflex [] Speech consults/swallow evaluation [] Vent dependence [] Other: [] Location in the medical record that reflects the above clinical findings: [] Treatment Provided: [] PHYSICIAN'S RESPONSE Based on your medical judgment of the clinical indicators outlined above, are you treating this patient for a known or suspected: [] Aspiration pneumonia [] Community acquired pneumonia [] Ventilator associated pneumonia [] Viral pneumonia [] Bacterial pneumonia Please specify organism: [] [] Other, please indicate [] If Unable to Determine, please check the box, sign and date. Present On Admission (POA) Indicator: [] Present at the time of admission [] Not present at the time of admission [] Clinically Undetermined In responding to this query, please exercise your independent professional judgment. The fact that a question is asked does not imply that any particular answer is desired or expected. Thank you for your clarification on this documentation. If you have any questions please call:[ ] * Thank you, [ ] financial representative LUCY
== END 2016-10-05 11:55 | disposition home or self-care (01) | DRG 293 ==
LOC: ED 08:33 → ERH 10:46 → 5RNO 15:57 → 2RNO 10-02 10:03
PROVIDERS: ADMIT Internal Medicine; ATTEND Internal Medicine
DX: I11.0 Hypertensive heart disease with heart failure (principal); J44.9 Chronic obstructive pulmonary disease, unspecified; R00.1 Bradycardia, unspecified; I50.41 Acute combined systolic (congestive) and diastolic (congestive) heart failure; M41.9 Scoliosis, unspecified; I34.0 Nonrheumatic mitral (valve) insufficiency; I44.7 Left bundle-branch block, unspecified; E78.5 Hyperlipidemia, unspecified; I25.10 Atherosclerotic heart disease of native coronary artery without angina pectoris; K21.9 Gastro-esophageal reflux disease without esophagitis; Z79.82 Long term (current) use of aspirin; Z79.899 Other long term (current) drug therapy; Z86.73 Personal history of transient ischemic attack (TIA), and cerebral infarction without residual deficits; Z87.01 Personal history of pneumonia (recurrent); Z95.1 Presence of aortocoronary bypass graft; Z95.2 Presence of prosthetic heart valve; Z95.5 Presence of coronary angioplasty implant and graft; R11.0 Nausea; R35.0 Frequency of micturition; F32.89 Other specified depressive episodes; Z87.891 Personal history of nicotine dependence; R40.2412 Glasgow coma scale score 13-15, at arrival to emergency department; I44.0 Atrioventricular block, first degree; T50.905A Adverse effect of unspecified drugs, medicaments and biological substances, initial encounter; R40.4 Transient alteration of awareness; I25.2 Old myocardial infarction

== ENCOUNTER 2016-10-06 14:33 | Inpatient (IN) | payer OTHER, BC ==
[2016-10-06] MEDS: Magnesium Oxide 400 mg Tab UD PO SCH (17:32)
[2016-10-06 17:47] VITALS: BMI 30.4
[2016-10-06] MEDS ORDERED: Pneumococcal 23-Valent Vaccine IM ONE (17:47)
[2016-10-07] MEDS: Pantoprazole 20 mg EC Tab PO SCH (05:59)
--- NOTE | 2016-10-07 07:45 | CP.PCM.PN ---
Subjective - Date & Time of Evaluation Date of Evaluation: 10/07/16 Time of Evaluation: 08:00 - Subjective Subjective: Stable in TCU S/P PPM at [facility]. Went well. He feels OK but weak. No CP, SOB or incisional pain. PE: Lungs: clear Cor.: S1S2 Abd.: soft Ext.: no edema Neuro.; alert Wound: healing well. Objective - Vital Signs/Intake and Output Vital Signs (last 24 hours): Temp Pulse Resp BP Pulse Ox 98.3 F 80 20 163/95 H 94 L 10/07/16 06:00 10/07/16 06:00 10/07/16 06:00 10/07/16 06:00 10/07/16 06:00 - Medications Medications: Current Medications Amlodipine Besylate (Norvasc) 2.5 mg PO DAILY [facility] PRN Reason: Protocol Aspirin (Ecotrin) 81 mg PO DAILY [facility] PRN Reason: Protocol Atorvastatin Calcium (Lipitor) 20 mg PO DIN [facility] PRN Reason: Protocol Last Admin: 10/06/16 17:32 Dose: 20 mg Azithromycin (Zithromax) 500 mg PO DAILY [facility] PRN Reason: Protocol Stop: 10/11/16 10:00 Furosemide (Lasix) 40 mg PO DAILY [facility] PRN Reason: Protocol Lisinopril (Zestril) 20 mg PO DAILY [facility] PRN Reason: Protocol Magnesium Oxide (Mag-Ox) 400 mg PO BID [facility] PRN Reason: Protocol Last Admin: 10/06/16 17:32 Dose: 400 mg Pantoprazole Sodium (Protonix Ec Tab) 20 mg PO 0600 [facility] PRN Reason: Protocol Last Admin: 10/07/16 05:59 Dose: 20 mg Paroxetine HCl (Paxil) 20 mg PO DAILY [facility] PRN Reason: Protocol Assessment and Plan - Assessment and Plan (Free Text) Plan: Assessment: S/P PPM for CHB AVR CAD/[place]/PCI CVA HB Kyphoscoliosis Plan: Check labs and ECG Continue current meds OOB/PT/Rehab Pacer F/U to be arranged on D/C.
--- NOTE | 2016-10-07 08:49 | HP ---
HISTORY OF PRESENT ILLNESS: An 81-year-old white male with a history of CAD, CVA, COPD, kyphoscolios is, status post pacemaker insertion at [facility]. The patient was transferred to [facility] for rehab. The patient has a history of poor balance secondary to a stroke and microvascular dise ase. PHYSICAL EXAMINATION: GENERAL: Shows a well-developed, thin, tall white male with severe kyphoscoliosis to the left in no apparent ____. The patient has a recent left anterior superior chest incision glued together for his pacemaker. HEART: Regular sinus rhythm. CHEST: Shows decreased breath sounds, but no rales bilaterally. EXTREMITIES: Without cyanosis, clubbing, or edema. NEUROLOGIC: Grossly intact. IMPRESSION: Status post pacemaker for bradyarrhythmia, history of coronary artery disease, history o f cerebrovascular accident, and severe deconditioning and imbalance. Ramy Michael MD cc: [id number] TT: 10/07/2016 08:49:31 jn
[2016-10-07] MEDS: Magnesium Oxide 400 mg Tab UD PO SCH ×2 (10:40→17:59)
--- NOTE | 2016-10-07 15:25 | CARD ---
APPROVED REPORT EKG Measurement Heart [id number] <Conclusion> Atria sensed ventricular paced rhythm
[2016-10-08] MEDS: Pantoprazole 20 mg EC Tab PO SCH (06:11)
[2016-10-08 06:26] LABS: ADD MANUAL DIFF? NO
[2016-10-08 06:47] LABS: BASO # 0.06 K/mm3 (0.0-2.0); BASO % 0.9 % (0.0-3.0); EOS # 0.9 (0.0-0.7); EOS % 13.2 % (1.5-5.0); GRAN # 3.37 (1.4-6.5); GRAN % 50.3 % (50.0-68.0); HEMATOCRIT 37.9 % (42.0-52.0); LYMPH # 1.7 (1.2-3.4); LYMPH % 25.6 % (22.0-35.0); MEAN CELL VOLUME 95.9 fL (80.0-105.0); MEAN CORPUSCULAR HEMOGLOBIN 31.1 pg (25.0-35.0); MEAN CORPUSCULAR HGB CONC 32.5 g/dl (31.0-37.0); MEAN PLATELET VOLUME 9.6 fl (7.0-11.0); MONO # 0.7 (0.1-0.6); PLATELET COUNT 243 10^3/uL (120.0-450.0); RED CELL DISTRIBUTION WIDTH 13.8 % (11.5-14.5); WHITE BLOOD COUNT 6.7 10^3/ul (4.5-11.0)
[2016-10-08 06:59] LABS: BLOOD UREA NITROGEN 25 mg/dL (7-21); CALCIUM 9.4 mg/dL (8.4-10.5); CARBON DIOXIDE 38 mmol/L (21-33); CHLORIDE 92 mmol/L (95-110); GFR AFRICAN-AMERICAN > 60; GLUCOSE,RANDOM 83 mg/dL (70-110); MAGNESIUM 1.6 mg/dL (1.7-2.2); POTASSIUM 4.7 mmol/L (3.6-5.0); SODIUM 134 mmol/L (132-148)
--- NOTE | 2016-10-08 07:39 | CP.PCM.PN ---
Subjective - Date & Time of Evaluation Date of Evaluation: 10/08/16 Time of Evaluation: 08:00 - Subjective Subjective: Stable in TCU S/P PPM at [facility]. Went well. He feels OK but weak. No CP, SOB or incisional pain. + amb with PT yesterday. PE: Lungs: clear Cor.: S1S2 Abd.: soft Ext.: no edema Neuro.; alert Wound: healing well. Labs 10/07 noted. Mg.++ = 1.6 ECG 10/07: V. paced. Atrial sensed. Objective - Vital Signs/Intake and Output Vital Signs (last 24 hours): Temp Pulse Resp BP Pulse Ox 98.4 F 76 14 127/61 98 10/07/16 15:52 10/07/16 15:52 10/07/16 15:52 10/07/16 15:52 10/07/16 15:52 - Medications Medications: Current Medications Amlodipine Besylate (Norvasc) 5 mg PO DAILY [facility] Last Admin: 10/07/16 10:40 Dose: Not Given Aspirin (Ecotrin) 81 mg PO 0800 [facility] PRN Reason: Protocol Atorvastatin Calcium (Lipitor) 20 mg PO 1700 [facility] PRN Reason: Protocol Azithromycin (Zithromax) 500 mg PO DAILY [facility] PRN Reason: Protocol Stop: 10/11/16 10:00 Last Admin: 10/07/16 10:42 Dose: 500 mg Furosemide (Lasix) 40 mg PO DAILY [facility] PRN Reason: Protocol Last Admin: 10/07/16 10:36 Dose: 40 mg Lisinopril (Zestril) 20 mg PO DAILY [facility] PRN Reason: Protocol Last Admin: 10/07/16 10:41 Dose: 20 mg Magnesium Oxide (Mag-Ox) 400 mg PO BID [facility] PRN Reason: Protocol Last Admin: 10/07/16 17:59 Dose: 400 mg Pantoprazole Sodium (Protonix Ec Tab) 20 mg PO 0600 [facility] PRN Reason: Protocol Last Admin: 10/08/16 06:11 Dose: 20 mg Paroxetine HCl (Paxil) 20 mg PO DAILY [facility] PRN Reason: Protocol Last Admin: 10/07/16 10:41 Dose: 20 mg - Labs Labs: 10/08/16 06:00 10/08/16 06:00 Assessment and Plan - Assessment and Plan (Free Text) Plan: Assessment: S/P PPM for CHB AVR CAD/[place]/PCI CVA HB Kyphoscoliosis Plan: Continue current meds and PO mag. OOB/PT/Rehab Pacer F/U to be arranged on D/C.
--- NOTE | 2016-10-08 09:50 | PN ---
DATE: 10/08/2016 An 81-year-old white male transferred from [facility] to [facility] after pacemaker inser tion for bradyarrhythmia. The patient is doing well, doing physical therapy and occupational therapy . He is afebrile. Vital signs are stable. Blood pressure 127/61. LABORATORY DATA: Unremarkable except for a slightly elevated BUN of 25, potassium is good. Vital signs are stable. The patient to continue physical therapy and occupational therapy and contin ue to monitor his recent pacemaker insertion. Ramy Michael MD cc: [id number] TT: 10/08/2016 09:49:46 Confirmation # [id number] Dictation # [id number] tn
[2016-10-08] MEDS: Magnesium Oxide 400 mg Tab UD PO SCH ×2 (10:32→18:31)
[2016-10-09] MEDS: Pantoprazole 20 mg EC Tab PO SCH (05:31)
--- NOTE | 2016-10-09 07:25 | CP.PCM.PN ---
Subjective - Date & Time of Evaluation Date of Evaluation: 10/09/16 Time of Evaluation: 08:00 - Subjective Subjective: Stable in TCU S/P PPM at [facility]. Went well. He feels OK but weak. No CP, SOB or incisional pain. + amb with PT yesterday. PE: Lungs: clear Cor.: S1S2 Abd.: soft Ext.: no edema Neuro.; alert Wound: healing well. Labs 10/07 noted. Mg.++ = 1.6 ECG 10/07: V. paced. Atrial sensed. Objective - Vital Signs/Intake and Output Vital Signs (last 24 hours): Temp Pulse Resp BP Pulse Ox 98 F 69 20 108/58 L 99 10/09/16 05:56 10/09/16 05:56 10/09/16 05:56 10/09/16 05:56 10/09/16 05:56 Intake and Output: 10/09/16 10/09/16 06:59 18:59 Intake Total 520 Balance 520 - Medications Medications: Current Medications Amlodipine Besylate (Norvasc) 5 mg PO DAILY [facility] Last Admin: 10/08/16 10:32 Dose: 5 mg Aspirin (Ecotrin) 81 mg PO 0800 [facility] PRN Reason: Protocol Last Admin: 10/08/16 08:57 Dose: 81 mg Atorvastatin Calcium (Lipitor) 20 mg PO 1700 [facility] PRN Reason: Protocol Last Admin: 10/08/16 18:30 Dose: 20 mg Azithromycin (Zithromax) 500 mg PO DAILY [facility] PRN Reason: Protocol Stop: 10/11/16 10:00 Last Admin: 10/08/16 10:35 Dose: 500 mg Furosemide (Lasix) 40 mg PO DAILY [facility] PRN Reason: Protocol Last Admin: 10/08/16 10:31 Dose: 40 mg Lisinopril (Zestril) 20 mg PO DAILY [facility] PRN Reason: Protocol Last Admin: 10/08/16 10:34 Dose: 20 mg Magnesium Oxide (Mag-Ox) 400 mg PO BID [facility] PRN Reason: Protocol Last Admin: 10/08/16 18:31 Dose: 400 mg Pantoprazole Sodium (Protonix Ec Tab) 20 mg PO 0600 [facility] PRN Reason: Protocol Last Admin: 10/09/16 05:31 Dose: 20 mg Paroxetine HCl (Paxil) 20 mg PO DAILY [facility] PRN Reason: Protocol Last Admin: 10/08/16 10:33 Dose: 20 mg - Labs Labs: 10/08/16 06:00 10/08/16 06:00 Assessment and Plan - Assessment and Plan (Free Text) Plan: Assessment: S/P PPM for CHB AVR CAD/OR/PCI CVA HB Kyphoscoliosis Plan: Continue current meds and PO mag. OOB/PT/Rehab Pacer F/U to be arranged on D/C.
--- NOTE | 2016-10-09 10:05 | PN ---
DATE: 10/09/2016 This is an 81-year-old white male transferred from [facility] after pacemaker insertion, for pamela re bradycardia, history of CAD, history of CVA in the past, history of kyphoscoliosis. The patient is doing well with physical therapy and occupational therapy. His wound is clean and dry . He is healing well. He is still complaining of pain at the incision site, otherwise he continues eventful. VITAL SIGNS: He is afebrile. Vital signs are stable. Blood pressure 108/58, heart rate is 69. LABORATORY DATA: unremarkable. Ramy Michael MD cc: [id number] TT: 10/09/2016 10:04:54 Confirmation # [id number] Dictation # [id number] lyric
[2016-10-09] MEDS: Magnesium Oxide 400 mg Tab UD PO SCH ×2 (10:39→17:05)
[2016-10-10] MEDS: Pantoprazole 20 mg EC Tab PO SCH (05:37)
--- NOTE | 2016-10-10 07:02 | CP.PCM.PN ---
Subjective - Date & Time of Evaluation Date of Evaluation: 10/10/16 Time of Evaluation: 08:00 - Subjective Subjective: Stable in TCU S/P PPM at [facility]. Went well. He feels OK but weak. No CP or SOB. + ambulation. PE: Lungs: clear Cor.: S1S2 Abd.: soft Ext.: no edema Neuro.; alert Wound: healing well. Labs 10/07 noted. Mg.++ = 1.6 ECG 10/07: V. paced. Atrial sensed. Objective - Vital Signs/Intake and Output Vital Signs (last 24 hours): Temp Pulse Resp BP Pulse Ox 98.3 F 77 20 110/61 97 10/09/16 16:00 10/09/16 16:00 10/09/16 16:00 10/09/16 16:00 10/09/16 16:00 - Medications Medications: Current Medications Amlodipine Besylate (Norvasc) 5 mg PO DAILY [facility] Last Admin: 10/09/16 10:39 Dose: 5 mg Aspirin (Ecotrin) 81 mg PO 0800 NUZHAT PRN Reason: Protocol Last Admin: 10/09/16 08:17 Dose: 81 mg Atorvastatin Calcium (Lipitor) 20 mg PO 1700 NUZHAT PRN Reason: Protocol Last Admin: 10/09/16 17:04 Dose: 20 mg Azithromycin (Zithromax) 500 mg PO DAILY NUZHAT PRN Reason: Protocol Stop: 10/11/16 10:00 Last Admin: 10/09/16 10:41 Dose: 500 mg Fluocinonide (Lidex 0.05% Cream) 0 gm TOP BID NUZHAT Last Admin: 10/09/16 17:05 Dose: 1 applic Furosemide (Lasix) 40 mg PO DAILY NUZHAT PRN Reason: Protocol Last Admin: 10/09/16 10:38 Dose: 40 mg Lisinopril (Zestril) 20 mg PO DAILY NUZHAT PRN Reason: Protocol Last Admin: 10/09/16 10:40 Dose: 20 mg Magnesium Oxide (Mag-Ox) 400 mg PO BID NUZHAT PRN Reason: Protocol Last Admin: 10/09/16 17:05 Dose: 400 mg Pantoprazole Sodium (Protonix Ec Tab) 20 mg PO 0600 NUZHAT PRN Reason: Protocol Last Admin: 10/10/16 05:37 Dose: 20 mg Paroxetine HCl (Paxil) 20 mg PO DAILY NUZHAT PRN Reason: Protocol Last Admin: 10/09/16 10:40 Dose: 20 mg - Labs Labs: 10/08/16 06:00 10/08/16 06:00 Assessment and Plan - Assessment and Plan (Free Text) Plan: Assessment: S/P PPM for CHB AVR CAD/WI/PCI CVA HB Kyphoscoliosis Plan: Continue current meds and PO mag. OOB/PT/Rehab Pacer F/U to be arranged on D/C.
[2016-10-10] MEDS: Magnesium Oxide 400 mg Tab UD PO SCH ×2 (10:54→17:16)
--- NOTE | 2016-10-10 11:16 | PN ---
DATE: 10/10/2016 An 81-year-old white male, exercising at physical therapy, doing well with physical therapy and occup ational therapy. However, having severe hypoxia when he is walking without oxygen, desaturating into the 80s. The patient is status post pacemaker insertion. PHYSICAL EXAMINATION: CHEST: Clear to auscultation and percussion. HEART: Sinus rhythm. VITAL SIGNS: Heart rate is approximately 77, 110/61 blood pressure. BUN and creatinine are stable. White count is stable. IMPRESSION: Status post pacemaker for severe bradycardia, chronic obstructive pulmonary disease, his tory of cerebrovascular accident, history of coronary artery disease and severe hypoxia. Ramy Michael MD cc: [id number] TT: 10/10/2016 11:15:57 Confirmation # [id number] Dictation # [id number] en
--- NOTE | 2016-10-11 07:53 | CP.PCM.PN ---
Subjective - Date & Time of Evaluation Date of Evaluation: 10/11/16 Time of Evaluation: 08:00 - Subjective Subjective: Stable in TCU S/P PPM at [facility]. Went well. He feels OK but weak. No CP or SOB. + ambulation. PE: Lungs: clear Cor.: S1S2 Abd.: soft Ext.: no edema Neuro.; alert Wound: healing well. Labs 10/07 noted. Mg.++ = 1.6 ECG 10/07: V. paced. Atrial sensed. Objective - Vital Signs/Intake and Output Vital Signs (last 24 hours): Temp Pulse Resp BP Pulse Ox 98 F 73 20 135/70 97 10/10/16 16:00 10/10/16 16:00 10/10/16 16:00 10/10/16 16:00 10/10/16 16:00 - Medications Medications: Current Medications Amlodipine Besylate (Norvasc) 5 mg PO DAILY [facility] Last Admin: 10/10/16 10:59 Dose: 5 mg Aspirin (Ecotrin) 81 mg PO 0800 NUZHAT PRN Reason: Protocol Last Admin: 10/10/16 08:46 Dose: 81 mg Atorvastatin Calcium (Lipitor) 20 mg PO 1700 NUZHAT PRN Reason: Protocol Last Admin: 10/10/16 17:17 Dose: 20 mg Azithromycin (Zithromax) 500 mg PO DAILY NUZHAT PRN Reason: Protocol Stop: 10/11/16 10:00 Last Admin: 10/10/16 10:57 Dose: 500 mg Fluocinonide (Lidex 0.05% Cream) 0 gm TOP BID [facility] Last Admin: 10/10/16 17:16 Dose: 1 applic Furosemide (Lasix) 40 mg PO DAILY NUZHAT PRN Reason: Protocol Last Admin: 10/10/16 10:53 Dose: 40 mg Lisinopril (Zestril) 20 mg PO DAILY NUZHAT PRN Reason: Protocol Last Admin: 10/10/16 10:56 Dose: 20 mg Magnesium Oxide (Mag-Ox) 400 mg PO BID NUZHAT PRN Reason: Protocol Last Admin: 10/10/16 17:16 Dose: 400 mg Pantoprazole Sodium (Protonix Ec Tab) 20 mg PO 0600 NUZHAT PRN Reason: Protocol Last Admin: 10/10/16 05:37 Dose: 20 mg Paroxetine HCl (Paxil) 20 mg PO DAILY NUZHAT PRN Reason: Protocol Last Admin: 10/10/16 10:56 Dose: 20 mg - Labs Labs: 10/08/16 06:00 10/08/16 06:00 Assessment and Plan - Assessment and Plan (Free Text) Plan: Assessment: S/P PPM for CHB AVR CAD/DE/PCI CVA HB Kyphoscoliosis Plan: Mg.++ level pending Continue current meds and PO mag. OOB/PT/Rehab Pacer F/U to be arranged on D/C. F/U CXR
[2016-10-11 08:08] LABS: BLOOD UREA NITROGEN 37 mg/dL (7-21); CALCIUM 9.7 mg/dL (8.4-10.5); CHLORIDE 92 mmol/L (95-110); GFR AFRICAN-AMERICAN > 60; GLUCOSE,RANDOM 82 mg/dL (70-110); MAGNESIUM 1.8 mg/dL (1.7-2.2); POTASSIUM 5.3 mmol/L (3.6-5.0); SODIUM 137 mmol/L (132-148)
[2016-10-11 08:45] LABS: CARBON DIOXIDE 40 mmol/L (21-33)
--- NOTE | 2016-10-11 09:35 | PN ---
DATE: 10/11/2016 An 81-year-old white male status post pacemaker, status post COPD, kyphoscoliosis, CHF resolving. Th e patient is doing well, ambulating, doing physical therapy and occupational therapy. However, he lee s been desatting when he does his physical therapy. He is being evaluated for home oxygen. PLAN: Is to continue physical therapy and occupational therapy, and evaluate for home oxygen and als o do a CT of the chest because of hypoxia. Ramy Michael MD cc: [id number] TT: 10/11/2016 09:34:50 Confirmation # [id number] Dictation # [id number] jn
[2016-10-11] MEDS: Magnesium Oxide 400 mg Tab UD PO SCH ×2 (11:00→17:21)
[2016-10-12] MEDS: Magnesium Oxide 400 mg Tab UD PO SCH ×2 (09:46→17:45)
--- NOTE | 2016-10-12 16:48 | PN ---
DATE: 10/12/2016 The patient is an 81-year-old white male admitted to the hospital status post pacemaker insertion, CH F, COPD, kyphoscoliosis. The patient is hypoxic with ambulation and with physical therapy. CT of th e chest shows no evidence of active disease or vascular disease. The patient is to continue physical therapy and occupational therapy and will be discharged home in the next 48 hours. Ramy Michael MD cc: [id number] TT: 10/12/2016 16:47:15 Confirmation # [id number] Dictation # [id number] rn
[2016-10-13] MEDS: Pantoprazole 20 mg EC Tab PO SCH (06:13)
--- NOTE | 2016-10-13 10:24 | PN ---
DATE: 10/13/2016 The patient is an 81-year-old white male admitted to the hospital with status post pacemaker insertio n, bradyarrhythmia, COPD, kyphoscoliosis, CHF, history of CVA. The patient is doing well with physic al therapy and occupational therapy supplemental oxygen at home, which is being arranged. We w ill discharge the patient most likely in the morning. Continue physical therapy and occupational the rapy. The patient has no complaints. A 12-point review of systems is unremarkable. Ramy Michael MD cc: [id number] TT: 10/13/2016 10:24:13 Confirmation # [id number] Dictation # [id number]
[2016-10-13] MEDS: Magnesium Oxide 400 mg Tab UD PO SCH ×2 (10:31→18:22)
--- NOTE | 2016-10-13 11:25 | PN ---
DATE: 10/13/2016 SUBJECTIVE: The patient is seen lying in bed on the transitional care unit. He continues to feel so mewhat weak. He apparently continues to require nasal oxygen. Plans are being made for possible dis charge later in the week. He is seen in the presence of his daughter. He denies any chest pain or l ightheadedness. CURRENT MEDICATIONS: Include Ecotrin, Lasix 40 mg daily, Lipitor 20 mg daily, Norvasc 5 mg daily, Pa xil 20 mg daily, Zestril 20 mg daily and Protonix 20 mg daily. OBJECTIVE: GENERAL: He is an elderly man who appears anxious, but otherwise comfortable. VITAL SIGNS: Blood pressure is 112/62 with a pulse of 76, respirations are 14. He is afebrile. HEENT: No JVD. CHEST: Bilateral scattered rhonchi heard. Pacemaker site clean and dry. HEART: PMI displaced laterally with a systolic murmur at left sternal border. ABDOMEN: Soft, nontender, normoactive bowel sounds. EXTREMITIES: Trace ankle edema. DIAGNOSTIC DATA: Blood work from yesterday revealed potassium 5.3, BUN and creatinine are 37 and 1.1 . IMPRESSION: 1. Recent permanent pacemaker implant for marked conduction system disease. 2. Gait imbalance and deconditioning. 3. History of severe aortic stenosis, status post aortic valve replacement. 4. Status post prior cerebrovascular accident. 5. History of coronary artery disease, status post prior myocardial infarction and PCI. 6. Severe kyphoscoliosis. RECOMMENDATIONS: Current cardiac medications should be continued at present, pacemaker followup will be arranged upon discharge. Resumption of beta regulo therapy can be considered at a later date. We will continue to follow and make further recommendations as appropriate as well as arrange for out patient followup upon discharge. Chinedu Friedman MD cc: [id number] TT: 10/13/2016 11:24:23 Confirmation # [id number] Dictation # [id number] an
[2016-10-13 17:09] VITALS: O2SAT 91
[2016-10-14] MEDS: Pantoprazole 20 mg EC Tab PO SCH (05:52)
--- NOTE | 2016-10-14 07:46 | CP.PCM.PN ---
Subjective - Date & Time of Evaluation Date of Evaluation: 10/14/16 Time of Evaluation: 07:00 - Subjective Subjective: Stable in TCU S/P PPM at [facility]. Went well. He feels OK but weak. No CP or SOB. + ambulation. D/C planned for today PE: Lungs: clear Cor.: S1S2 Abd.: soft Ext.: no edema Neuro.; alert Wound: healing well. ecchymosis noted. Old blood migrating by gravity into lower chest wall. Labs 10/07 noted. Mg.++ = 1.8 , K+= 5.3 ECG 10/07: V. paced. Atrial sensed. Objective - Vital Signs/Intake and Output Vital Signs (last 24 hours): Temp Pulse Resp BP Pulse Ox 97.8 F 78 14 120/59 L 91 L 10/13/16 16:00 10/13/16 16:00 10/13/16 16:00 10/13/16 16:00 10/13/16 16:00 - Medications Medications: Current Medications Amlodipine Besylate (Norvasc) 5 mg PO DAILY [facility] Last Admin: 10/13/16 10:32 Dose: 5 mg Aspirin (Ecotrin) 81 mg PO 0800 NUZHAT PRN Reason: Protocol Last Admin: 10/13/16 07:56 Dose: 81 mg Atorvastatin Calcium (Lipitor) 20 mg PO 1700 NUZHAT PRN Reason: Protocol Last Admin: 10/13/16 18:21 Dose: 20 mg Fluocinonide (Lidex 0.05% Cream) 0 gm TOP BID [facility]AT Last Admin: 10/13/16 18:21 Dose: 1 applic Furosemide (Lasix) 40 mg PO DAILY NUZHAT PRN Reason: Protocol Last Admin: 10/13/16 10:31 Dose: 40 mg Lisinopril (Zestril) 20 mg PO DAILY NUZHAT PRN Reason: Protocol Last Admin: 10/13/16 10:32 Dose: 20 mg Pantoprazole Sodium (Protonix Ec Tab) 20 mg PO 0600 NUZHAT PRN Reason: Protocol Last Admin: 10/14/16 05:52 Dose: 20 mg Paroxetine HCl (Paxil) 20 mg PO DAILY NUZHAT PRN Reason: Protocol Last Admin: 10/13/16 10:32 Dose: 20 mg - Labs Labs: 10/08/16 06:00 10/11/16 07:30 Assessment and Plan - Assessment and Plan (Free Text) Plan: Assessment: S/P PPM for CHB AVR CAD/ID/PCI CVA HBP Kyphoscoliosis Plan: Continue current meds. D/C PO mag. OOB/PT/Rehab Pacer F/U to be arranged on D/C. Re-check K+ as out-pt.
[2016-10-14 16:32] VITALS: BP 123/65; PULSE 84; RESP 14; TEMP 98.1
--- NOTE | 2016-10-14 18:58 | DS ---
The patient is an 81-year-old, seen and examined, sitting in chair, comfortable. Denies any chest pa in, no shortness of breath, no nausea, vomiting, no diarrhea. PHYSICAL EXAMINATION: VITAL SIGNS: He is afebrile, pulse 84, respirations 14, blood pressure 123/65. LUNGS: Bilateral good airflow, no rhonchi or crackle. HEART: S1, S2 audible. ABDOMEN: Soft, nontender, no rebound, no guarding. NEUROLOGIC: He is awake and alert, communicative. CHEST: Left upper chest, he has pacemaker placed. The wound looks healthy. EXTREMITIES: Bilateral legs no edema. LABORATORY EXAMINATION: There is no new lab available today. ASSESSMENT: 1. Deconditioning, difficulty walking, seems to be improving. 2. History of severe aortic stenosis, status post aortic valve replacement. 3. History of cerebrovascular accident in remote past. 4. Coronary artery disease, status post myocardial infarction and angioplasty in the past. 5. Degenerative disk disease. 6. Status post pacemaker placement. 7. Kyphoscoliosis. PLAN: The patient is being discharged home and he will continue his medication including Zocor 40 mg at bedtime, Zantac 150 twice a day, Seroquel 50 mg at bedtime, Paxil 20 mg daily, omeprazole 20 mg d aily, Bumex 0.5 daily, benazepril 20 mg daily, aspirin 81 daily, amlodipine 5 mg daily and Lasix 40 m g daily and he will follow up with Dr. Michael and Dr. Bronson as outpatient. Bill Trujillo MD cc: [phone] TT: 10/14/2016 18:58:04 en
== END 2016-10-14 19:05 | disposition home health service (06) | DRG 303 ==
LOC: TRCU 14:33
PROVIDERS: ADMIT Internal Medicine; ATTEND Internal Medicine
PROC: F07Z9FZ Gait Training/Functional Ambulation Treatment using Assistive, Adaptive, Supportive or Protective Equipment (ICD-10-PCS; principal; 2016-10-07)
PROC: F07M6ZZ Therapeutic Exercise Treatment of Musculoskeletal System - Whole Body (ICD-10-PCS; 2016-10-07)
PROC: F08Z2ZZ Grooming/Personal Hygiene Treatment (ICD-10-PCS; 2016-10-07)
PROC: F08Z1ZZ Dressing Techniques Treatment (ICD-10-PCS; 2016-10-07)
PROC: F08Z0ZZ Bathing/Showering Techniques Treatment (ICD-10-PCS; 2016-10-07)
DX: I25.10 Atherosclerotic heart disease of native coronary artery without angina pectoris (principal); I50.9 Heart failure, unspecified; R00.1 Bradycardia, unspecified; Z99.81 Dependence on supplemental oxygen; J44.9 Chronic obstructive pulmonary disease, unspecified; I25.2 Old myocardial infarction; M41.9 Scoliosis, unspecified; Z95.0 Presence of cardiac pacemaker; Z95.2 Presence of prosthetic heart valve; Z98.61 Coronary angioplasty status; Z86.73 Personal history of transient ischemic attack (TIA), and cerebral infarction without residual deficits; R09.02 Hypoxemia; R53.81 Other malaise; R26.2 Difficulty in walking, not elsewhere classified; M51.36 Other intervertebral disc degeneration, lumbar region; R03.0 Elevated blood-pressure reading, without diagnosis of hypertension

== ENCOUNTER 2018-06-08 16:42 | Inpatient (IN) | payer OTHER, BC ==
[2018-06-08] MEDS ORDERED: Albuterol-Ipratrop 3 mg / 0.5 (3 ml) UD IH PRN (17:45)
[2018-06-08] MEDS ORDERED: Magnesium Oxide 400 mg Tab UD PO SCH ×2 (18:00→20:00)
[2018-06-08] MEDS: Albuterol-Ipratrop 3 mg / 0.5 (3 ml) UD IH SCH (20:38)
[2018-06-08] MEDS: Arformoterol 15 mcg/2 ml Inh Sol IH SCH (20:38)
[2018-06-08] MEDS: Budesonide 0.5 mg/2 ml Inhal Susp UD IH SCH (20:38)
[2018-06-08] MEDS: Magnesium Oxide 400 mg Tab UD PO SCH (20:45)
[2018-06-08] MEDS ORDERED: MethylPREDNISolone 40 mg Vial IVP SCH (22:00)
[2018-06-08 22:40] VITALS: BMI 23.1
[2018-06-08] MEDS ORDERED: Influenza Vaccine 60 mcg/0.5 mL SYR (4YR UP) IM ONE (22:40)
[2018-06-08] MEDS ORDERED: Pneumococcal 23-Valent Vaccine IM ONE (22:40)
[2018-06-09] MEDS: Pantoprazole 20 mg EC Tab PO SCH (05:19)
[2018-06-09] MEDS: Metoprolol Succinate 25 mg XL Tab PO SCH ×2 (06:14→07:59)
[2018-06-09 07:34] LABS: BLOOD UREA NITROGEN 51 mg/dL (7-21); GFR NON-AFRICAN AMERICAN 53
--- NOTE | 2018-06-09 08:04 | CP.PCM.PN ---
Subjective - Date & Time of Evaluation Date of Evaluation: 06/09/18 Time of Evaluation: 07:00 - Subjective Subjective: Stable in TCU No CP, dyspnea V/S noted. PE: Lungs: rhonchi Cor: S1S2 Abd.: soft Ext.: mild edema Neuro.: alert Labs noted: Na+= 141, K+= 5.3, BUN=51, Cr.= 1.3 Objective - Vital Signs/Intake and Output Vital Signs (last 24 hours): Temp Pulse Resp BP Pulse Ox 98.2 F 91 H 20 177/80 H 06/08/18 22:30 06/09/18 06:14 06/08/18 22:30 06/09/18 06:14 - Medications Medications: Current Medications Albuterol/Ipratropium (Duoneb 3 Mg/0.5 Mg (3 Ml) Ud) 3 ml IH Q2H PRN; Protocol PRN Reason: Shortness of Breath Albuterol/Ipratropium (Duoneb 3 Mg/0.5 Mg (3 Ml) Ud) 3 ml IH [id number] NUZHAT; Protocol Last Admin: 06/08/18 20:38 Dose: 3 ml Arformoterol Tartrate (Brovana) 15 mcg IH [id number] NUZHAT Last Admin: 06/08/18 20:38 Dose: 15 mcg Aspirin (Ecotrin) 81 mg PO 0800 NUZHAT; Protocol Atorvastatin Calcium (Lipitor) 20 mg PO 1700 NUZHAT; Protocol Budesonide (Pulmicort Respules) 0.5 mg IH [id number] NUZHAT Last Admin: 06/08/18 20:38 Dose: 0.5 mg Cholecalciferol (Vitamin D) 1,000 intlu PO DAILY NUZHAT; Protocol Furosemide (Lasix) 40 mg IVP DAILY NUZHAT; Protocol Levofloxacin (Levaquin) 500 mg PO DAILY NUZHAT; Protocol Magnesium Oxide (Mag-Ox) 400 mg PO BID NUZHAT; Protocol Last Admin: 06/08/18 20:45 Dose: 400 mg Methylprednisolone (Solu-Medrol) 20 mg IVP Q12 NUZHAT; Protocol Last Admin: 06/08/18 21:46 Dose: 20 mg Metoprolol Succinate (Toprol Xl) 25 mg PO 0800 NUZHAT; Protocol Last Admin: 06/09/18 06:14 Dose: 25 mg Pantoprazole Sodium (Protonix Ec Tab) 20 mg PO 0600 NUZHAT; Protocol Last Admin: 06/09/18 05:19 Dose: 20 mg Paroxetine HCl (Paxil) 20 mg PO DAILY NUZHAT; Protocol - Labs Labs: 06/09/18 06:00 Assessment and Plan - Assessment and Plan (Free Text) Assessment: Dyspnea AMS/Possible Syncope at home/Possibly related to malfunctioning home O2 unit Severe COPD/PH/Former Smoker AVR PPM for CHB CAD/PCIs HBP HLD Cognitive Dysfunction Scoliosis LBBB CVA Plan: Hold IV Lasix today > PO tomorrow Monitor labs OOB/PT/Rehab Efforts
[2018-06-09] MEDS: Arformoterol 15 mcg/2 ml Inh Sol IH SCH ×2 (08:07→20:44)
[2018-06-09] MEDS: Budesonide 0.5 mg/2 ml Inhal Susp UD IH SCH ×2 (08:07→20:45)
[2018-06-09] MEDS: Albuterol-Ipratrop 3 mg / 0.5 (3 ml) UD IH SCH ×3 (08:07→20:45)
[2018-06-09] MEDS: levoFLOXacin 500 MG TAB PO SCH (09:48)
[2018-06-09] MEDS: Magnesium Oxide 400 mg Tab UD PO SCH ×2 (09:48→17:27)
[2018-06-09] MEDS: Cholecalciferol 1,000 INTLU TAB PO SCH (09:52)
--- NOTE | 2018-06-09 10:02 | PN ---
PULMONARY NOTE DATE: 06/09/2018 SUBJECTIVE: The patient appears comfortable this morning. He is not short of breath at rest. PHYSICAL EXAMINATION: VITAL SIGNS: Temperature is 98.2, pulse 91, respirations 18, blood pressure 177/80 and oxygen saturation on nasal cannula is 93%. HEENT: Normocephalic and atraumatic. No JVD. CARDIOVASCULAR: Systolic ejection murmur at the lower left sternal border. Positive S3 gallop. LUNGS: Minimal/less crackles at the bases. Minimal/less rhonchi. No wheezing. EXTREMITIES: Mild edema. No cyanosis, no clubbing. Calves are nontender to palpation. GI: Abdomen is soft, nontender and nondistended. Bowel sounds are positive. SKIN: No acute rash. NEUROLOGIC: Exam limited at the present time. IMPRESSION: 1. Acute bronchitis. 2. Advanced chronic obstructive pulmonary disease. 3. Congestive heart failure. 4. Mild anemia. PLAN: The patient appears comfortable this morning. He is not short of breath at rest. He does state to feeling much better overall. I did discuss the case to night nurse at length. The night nurse stated the patient had a very good night. On physical exam, his bronchospasm continues to slowly resolve. In addition, the alveolar-arterial gradient is also less. I will continue the current nebulizer treatments and change to oral steroids this morning. The patient also remains on oral Levaquin. Input by Cardiology is also noted. The patient remains on lasix. Clinical status of the patient is significantly improved - compared to the initial presentation. However, given the above, the future status/prognosis for this patient does remain guarded. I will discuss the above with the attending physician. The patient is now on the Transitional Unit - where he will participate in physical therapy. Clint Jalloh MD LUCY
--- NOTE | 2018-06-09 12:55 | PN ---
DATE: 06/09/2018 SUBJECTIVE: An 83-year-old white male with congestive heart failure, COPD, pulmonary hypertension, CVA in the past, pneumonia in the past, and kyphoscoliosis. The patient is doing well with physical therapy and occupational therapy. He seems somewhat agitated and also excessive falling asleep. PHYSICAL EXAMINATION: VITAL SIGNS: Stable. CHEST: Clear to auscultation and percussion. NEUROLOGIC: Grossly intact. PLAN: Pulmonary consultation for possible narcolepsy. Ramy Michael MD
[2018-06-10] MEDS: Albuterol-Ipratrop 3 mg / 0.5 (3 ml) UD IH SCH ×4 (01:38→19:41)
[2018-06-10] MEDS: Pantoprazole 20 mg EC Tab PO SCH (05:23)
[2018-06-10 07:20] LABS: BLOOD UREA NITROGEN 56 mg/dL (7-21); CALCIUM 9.9 mg/dL (8.4-10.5); GFR NON-AFRICAN AMERICAN 49
[2018-06-10] MEDS: Budesonide 0.5 mg/2 ml Inhal Susp UD IH SCH ×2 (07:24→19:41)
[2018-06-10] MEDS: Arformoterol 15 mcg/2 ml Inh Sol IH SCH ×2 (07:24→19:41)
--- NOTE | 2018-06-10 07:25 | CP.PCM.PN ---
Subjective - Date & Time of Evaluation Date of Evaluation: 06/10/18 Time of Evaluation: 07:00 - Subjective Subjective: Stable in TCU No CP, dyspnea. V/S noted. PE: Lungs: rhonchi Cor: S1S2 Abd.: soft Ext.: mild edema Neuro.: alert Labs noted: Na+= 139 K+= 4.7, BUN=56, Cr.= 1.4 Objective - Vital Signs/Intake and Output Vital Signs (last 24 hours): Temp Pulse Resp BP Pulse Ox 98.4 F 74 20 151/74 H 99 06/09/18 16:00 06/09/18 16:00 06/09/18 16:00 06/09/18 16:00 06/09/18 16:00 - Medications Medications: Current Medications Albuterol/Ipratropium (Duoneb 3 Mg/0.5 Mg (3 Ml) Ud) 3 ml IH Q2H PRN; Protocol PRN Reason: Shortness of Breath Albuterol/Ipratropium (Duoneb 3 Mg/0.5 Mg (3 Ml) Ud) 3 ml IH [id number] NUZHAT; Protocol Last Admin: 06/10/18 01:38 Dose: Not Given Arformoterol Tartrate (Brovana) 15 mcg IH [id number] NUZHAT Last Admin: 06/09/18 20:44 Dose: 15 mcg Aspirin (Ecotrin) 81 mg PO 0800 NUZHAT; Protocol Last Admin: 06/09/18 07:58 Dose: 81 mg Atorvastatin Calcium (Lipitor) 20 mg PO 1700 NUZHAT; Protocol Last Admin: 06/09/18 17:26 Dose: 20 mg Budesonide (Pulmicort Respules) 0.5 mg IH [id number] NUZHAT Last Admin: 06/09/18 20:45 Dose: 0.5 mg Cholecalciferol (Vitamin D) 1,000 intlu PO DAILY NUZHAT; Protocol Last Admin: 06/09/18 09:52 Dose: 1,000 intlu Furosemide (Lasix) 40 mg IVP DAILY NUZHAT; Protocol Levofloxacin (Levaquin) 500 mg PO DAILY NUZHAT; Protocol Last Admin: 06/09/18 09:48 Dose: 500 mg Magnesium Oxide (Mag-Ox) 400 mg PO BID NUZHAT; Protocol Last Admin: 06/09/18 17:27 Dose: 400 mg Metoprolol Succinate (Toprol Xl) 25 mg PO 0800 NUZHAT; Protocol Last Admin: 06/09/18 07:59 Dose: Not Given Pantoprazole Sodium (Protonix Ec Tab) 20 mg PO 0600 NUZHAT; Protocol Last Admin: 06/10/18 05:23 Dose: 20 mg Paroxetine HCl (Paxil) 20 mg PO DAILY NUZHAT; Protocol Last Admin: 06/09/18 09:49 Dose: 20 mg Prednisone (Prednisone Tab) 30 mg PO DAILY NUZHAT Last Admin: 06/09/18 09:54 Dose: 30 mg - Labs Labs: 06/10/18 06:00 Assessment and Plan - Assessment and Plan (Free Text) Assessment: Dyspnea AMS/Possible Syncope at home/Possibly related to malfunctioning home O2 unit Severe COPD/PH/Former Smoker AVR PPM for CHB CAD/PCIs HBP HLD Cognitive Dysfunction Scoliosis LBBB CVA Plan: Hold IV Lasix today > PO tomorrow Monitor labs OOB/PT/Rehab Efforts As per pulrodolfo. andDr. Michael.
[2018-06-10] MEDS: Metoprolol Succinate 25 mg XL Tab PO SCH (08:33)
[2018-06-10] MEDS: levoFLOXacin 500 MG TAB PO SCH (10:07)
[2018-06-10] MEDS: Magnesium Oxide 400 mg Tab UD PO SCH ×2 (10:07→17:21)
[2018-06-10] MEDS: Cholecalciferol 1,000 INTLU TAB PO SCH (10:08)
--- NOTE | 2018-06-10 12:49 | PN ---
DATE: 06/10/2018 SUBJECTIVE: An 83-year-old white male seen in TCU for continued rehab. The patient is awake, alert, improved from yesterday when he was somewhat narcoleptic. The patient is participating in physical therapy and occupational therapy. PHYSICAL EXAMINATION: CHEST: Clear to auscultation and percussion. HEART: Normal S1 and S2. The patient has no complaints. PLAN: To continue rehab. Ramy Michael MD
[2018-06-11] MEDS: Albuterol-Ipratrop 3 mg / 0.5 (3 ml) UD IH SCH ×4 (03:30→20:08)
[2018-06-11] MEDS: Pantoprazole 20 mg EC Tab PO SCH (05:18)
[2018-06-11] MEDS: Budesonide 0.5 mg/2 ml Inhal Susp UD IH SCH ×2 (07:26→20:08)
[2018-06-11] MEDS: Arformoterol 15 mcg/2 ml Inh Sol IH SCH ×2 (07:26→20:08)
--- NOTE | 2018-06-11 07:30 | CP.PCM.PN ---
Subjective - Date & Time of Evaluation Date of Evaluation: 06/11/18 Time of Evaluation: 07:00 - Subjective Subjective: Stable in TCU No CP, dyspnea. + Rehab efforts. V/S noted. PE: Lungs: rhonchi Cor: S1S2 Abd.: soft Ext.: mild edema Neuro.: alert Labs 06/10 noted: Na+= 139 K+= 4.7, BUN=56, Cr.= 1.4 Objective - Vital Signs/Intake and Output Vital Signs (last 24 hours): Temp Pulse Resp BP Pulse Ox 98.4 F 74 20 119/71 99 06/09/18 16:00 06/09/18 16:00 06/09/18 16:00 06/10/18 08:33 06/09/18 16:00 - Medications Medications: Current Medications Albuterol/Ipratropium (Duoneb 3 Mg/0.5 Mg (3 Ml) Ud) 3 ml IH Q2H PRN; Protocol PRN Reason: Shortness of Breath Albuterol/Ipratropium (Duoneb 3 Mg/0.5 Mg (3 Ml) Ud) 3 ml IH [id number] NUZHAT; Protocol Last Admin: 06/11/18 03:30 Dose: Not Given Arformoterol Tartrate (Brovana) 15 mcg IH [id number] NUZHAT Last Admin: 06/10/18 19:41 Dose: 15 mcg Aspirin (Ecotrin) 81 mg PO 0800 NUZHAT; Protocol Last Admin: 06/10/18 08:33 Dose: 81 mg Atorvastatin Calcium (Lipitor) 20 mg PO 1700 NUZHAT; Protocol Last Admin: 06/10/18 17:22 Dose: 20 mg Budesonide (Pulmicort Respules) 0.5 mg IH [id number] NUZHAT Last Admin: 06/10/18 19:41 Dose: 0.5 mg Cholecalciferol (Vitamin D) 1,000 intlu PO DAILY NUZHAT; Protocol Last Admin: 06/10/18 10:08 Dose: 1,000 intlu Furosemide (Lasix) 40 mg IVP DAILY NUZHAT; Protocol Levofloxacin (Levaquin) 500 mg PO DAILY NUZHAT; Protocol Last Admin: 06/10/18 10:07 Dose: 500 mg Magnesium Oxide (Mag-Ox) 400 mg PO BID NUZHAT; Protocol Last Admin: 06/10/18 17:21 Dose: Not Given Metoprolol Succinate (Toprol Xl) 25 mg PO 0800 NUZHAT; Protocol Last Admin: 06/10/18 08:33 Dose: 25 mg Pantoprazole Sodium (Protonix Ec Tab) 20 mg PO 0600 NUZHAT; Protocol Last Admin: 06/11/18 05:18 Dose: 20 mg Paroxetine HCl (Paxil) 20 mg PO DAILY NUZHAT; Protocol Last Admin: 06/10/18 10:07 Dose: 20 mg Prednisone (Prednisone Tab) 30 mg PO DAILY NUZHAT Last Admin: 06/10/18 10:08 Dose: 30 mg - Labs Labs: 06/10/18 06:00 Assessment and Plan - Assessment and Plan (Free Text) Assessment: Dyspnea AMS/Possible Syncope at home/Possibly related to malfunctioning home O2 unit Severe COPD/PH/Former Smoker AVR PPM for CHB CAD/PCIs HBP HLD Cognitive Dysfunction Scoliosis LBBB CVA Plan: Check labs tomorrow. Hold Lasix today > PO tomorrow Monitor labs OOB/PT/Rehab Efforts As per pulm. and Dr. Michael.
[2018-06-11] MEDS: Metoprolol Succinate 25 mg XL Tab PO SCH (08:04)
[2018-06-11] MEDS: levoFLOXacin 500 MG TAB PO SCH (09:21)
[2018-06-11] MEDS: Magnesium Oxide 400 mg Tab UD PO SCH ×2 (09:22→17:20)
[2018-06-11] MEDS: Cholecalciferol 1,000 INTLU TAB PO SCH (09:23)
[2018-06-12] MEDS: Pantoprazole 20 mg EC Tab PO SCH (05:07)
[2018-06-12 07:19] LABS: BASO # 0.01 K/mm3 (0.0-2.0); BASO % 0.1 % (0.0-3.0); EOS # 0.1 (0.0-0.7); EOS % 0.5 % (1.5-5.0); GRAN # 7.64 (1.4-6.5); GRAN % 78.5 % (50.0-68.0); HEMOGLOBIN 10.1 g/dL (14.0-18.0); LYMPH # 1.3 (1.2-3.4); LYMPH % 13.2 % (22.0-35.0); MEAN CELL VOLUME 101.2 fl (80.0-105.0); MEAN CORPUSCULAR HEMOGLOBIN 29.4 pg (25.0-35.0); MEAN CORPUSCULAR HGB CONC 29.1 g/dl (31.0-37.0); MEAN PLATELET VOLUME 9.2 fl (7.0-11.0); MONO # 0.8 (0.1-0.6); MONO % 7.7 % (1.0-6.0); RBC 3.43 10^6/uL (3.5-6.1); RED CELL DISTRIBUTION WIDTH 13.9 % (11.5-14.5); WHITE BLOOD COUNT 9.7 10^3/uL (4.5-11.0)
[2018-06-12] MEDS: Albuterol-Ipratrop 3 mg / 0.5 (3 ml) UD IH SCH ×3 (07:21→22:20)
[2018-06-12] MEDS: Arformoterol 15 mcg/2 ml Inh Sol IH SCH ×2 (07:21→22:20)
[2018-06-12] MEDS: Budesonide 0.5 mg/2 ml Inhal Susp UD IH SCH ×2 (07:22→23:20)
[2018-06-12 07:23] LABS: BLOOD UREA NITROGEN 41 mg/dL (7-21); CALCIUM 9.6 mg/dL (8.4-10.5); GFR NON-AFRICAN AMERICAN 53
--- NOTE | 2018-06-12 07:30 | CP.PCM.PN ---
Subjective - Date & Time of Evaluation Date of Evaluation: 06/12/18 Time of Evaluation: 07:00 - Subjective Subjective: Stable in TCU No CP, dyspnea. + Rehab efforts. V/S noted. PE: Lungs: rhonchi Cor: S1S2 Abd.: soft Ext.: mild edema Neuro.: alert Labs noted: K+= 5.2, H/H = 10.1/34.7 Objective - Vital Signs/Intake and Output Vital Signs (last 24 hours): Temp Pulse Resp BP Pulse Ox 98.4 F 70 18 128/57 L 99 06/11/18 16:00 06/11/18 16:00 06/11/18 16:00 06/11/18 16:00 06/11/18 16:00 - Medications Medications: Current Medications Albuterol/Ipratropium (Duoneb 3 Mg/0.5 Mg (3 Ml) Ud) 3 ml IH Q2H PRN; Protocol PRN Reason: Shortness of Breath Albuterol/Ipratropium (Duoneb 3 Mg/0.5 Mg (3 Ml) Ud) 3 ml IH [id number] [facility]; Protocol Last Admin: 06/12/18 07:21 Dose: 3 ml Arformoterol Tartrate (Brovana) 15 mcg IH [id number] [facility]AT Last Admin: 06/12/18 07:21 Dose: 15 mcg Aspirin (Ecotrin) 81 mg PO 0800 [facility]; Protocol Last Admin: 06/11/18 08:03 Dose: 81 mg Atorvastatin Calcium (Lipitor) 20 mg PO 1700 [facility]; Protocol Last Admin: 06/11/18 17:20 Dose: 20 mg Budesonide (Pulmicort Respules) 0.5 mg IH [id number] [facility]AT Last Admin: 06/12/18 07:22 Dose: 0.5 mg Cholecalciferol (Vitamin D) 1,000 intlu PO DAILY [facility]; Protocol Last Admin: 06/11/18 09:23 Dose: 1,000 intlu Levofloxacin (Levaquin) 500 mg PO DAILY [facility]; Protocol Last Admin: 06/11/18 09:21 Dose: 500 mg Magnesium Oxide (Mag-Ox) 400 mg PO BID [facility]; Protocol Last Admin: 06/11/18 17:20 Dose: 400 mg Metoprolol Succinate (Toprol Xl) 25 mg PO 0800 [facility]; Protocol Last Admin: 06/11/18 08:04 Dose: 25 mg Pantoprazole Sodium (Protonix Ec Tab) 20 mg PO 0600 [facility]; Protocol Last Admin: 06/12/18 05:07 Dose: 20 mg Paroxetine HCl (Paxil) 20 mg PO DAILY [facility]; Protocol Last Admin: 06/11/18 09:23 Dose: 20 mg Prednisone (Prednisone Tab) 30 mg PO DAILY [facility] Last Admin: 06/11/18 09:23 Dose: 30 mg - Labs Labs: 06/12/18 06:30 06/12/18 06:30 Assessment and Plan - Assessment and Plan (Free Text) Assessment: Dyspnea AMS/Possible Syncope at home/Possibly related to malfunctioning home O2 unit Severe COPD/PH/Former Smoker AVR PPM for CHB CAD/PCIs HBP HLD Cognitive Dysfunction Scoliosis LBBB CVA Plan: Check labs/K+ tomorrow. Hold Lasix today > PO tomorrow OOB/PT/Rehab Efforts As per Pulm. and Dr. Michael.
[2018-06-12] MEDS: Metoprolol Succinate 25 mg XL Tab PO SCH (08:04)
--- NOTE | 2018-06-12 08:50 | PN ---
DATE: 06/12/2018 PULMONARY NOTE SUBJECTIVE: The patient appears comfortable this morning. He is not short of breath at rest. OBJECTIVE: VITAL SIGNS: Temperature is 98.4, pulse 74, respirations 18, blood pressure 117/58. Oxygen saturation on nasal cannula is 99%. HEENT: Normocephalic, atraumatic. No JVD. CARDIOVASCULAR: Systolic ejection murmur at the lower left sternal border. Questionable S3 gallop. LUNGS: Very minimal crackles at the bases. Very minimal/less rhonchi. No wheezing. EXTREMITIES: Mild edema. No cyanosis, no clubbing. Calves are nontender to palpation. GI: Abdomen is soft, nontender and nondistended. Bowel sounds are positive. SKIN: No acute rash. NEUROLOGIC: Limited at the present time. IMPRESSION: 1. Acute bronchitis. 2. Advanced chronic obstructive pulmonary disease. 3. Congestive heart failure. 4. Mild anemia. PLAN: The patient appears comfortable this morning. He is not short of breath at rest. He does state to feeling much better overall. On physical exam, his bronchospasm continues to resolve. In addition, the alveolar-arterial gradient also continues to resolve. I will continue with the current nebulizer treatments and decrease the oral steroids this morning. The patient remains on oral antibiotic therapy. There are no temperatures noted. There is no leukocytosis. Clinical status of the patient is significantly improved - compared to the initial presentation. However, given the above, the patient's future status/prognosis remains very guarded. I will discuss the above with the attending physician. Clint Jalloh MD MTDD
--- NOTE | 2018-06-12 09:04 | PN ---
DATE: 06/10/2018 LOCATION: Room 319, bed 1. SUBJECTIVE: The patient states that he is feeling better. He has no respiratory distress this morning. He had a good night's sleep and had no further complaints. PHYSICAL EXAMINATION: VITAL SIGNS: Remain stable. He is afebrile. Respiratory rate of 16, blood pressure 160/70, oxygen saturation 94% on room air. HEENT: Normocephalic, atraumatic. No jugular venous distention. CARDIOVASCULAR: Regular rhythm. S1, S2. No gallop is appreciated this morning. CHEST: Minimal rhonchi and rales persists. There is no wheezing. ABDOMEN: Soft. Bowel sounds normoactive without mass, guarding, rebound or organomegaly. EXTREMITIES: Reveal no clubbing, cyanosis. Edema seems to have resolved. There is no evidence of Homans' sign. SKIN: Shows no rash or excoriation. NEUROLOGIC: No focal findings. CLINICAL IMPRESSION: 1. Status post bronchitis. 2. Chronic obstructive pulmonary disease, stable. 3. Resolving congestive heart failure. 4. Anemia. PLAN: Continue vigorous inhaled bronchodilators and corticosteroids. Continue diuresis as per Cardiology, Pulmonary. Rehabilitation is essential. The patient would benefit from outpatient treatment in the office. We have made suggestions that the patient return for followup once he is discharged. Thank you for the opportunity to evaluate this patient. Mike Velazquez MD
[2018-06-12] MEDS: Cholecalciferol 1,000 INTLU TAB PO SCH (11:00)
[2018-06-12] MEDS: levoFLOXacin 500 MG TAB PO SCH (11:00)
[2018-06-12] MEDS: Magnesium Oxide 400 mg Tab UD PO SCH ×2 (11:00→17:19)
--- NOTE | 2018-06-12 13:54 | CP.PCM.PN ---
<Nayeli Meier - Last Filed: 06/12/18 13:38> Subjective - Date & Time of Evaluation Date of Evaluation: 06/12/18 Time of Evaluation: 11:15 - Subjective Subjective: Nayeli Meier Y1 Hospital Progress Note Patient seen and examined at bedside. No acute events overnight. Offers no complaints today. Today is day 4 out of 8 for TCU. Objective - Vital Signs/Intake and Output Vital Signs (last 24 hours): Temp Pulse Resp BP Pulse Ox 98.4 F 74 18 117/58 L 99 06/11/18 16:00 06/12/18 08:04 06/11/18 16:00 06/12/18 08:04 06/11/18 16:00 - Medications Medications: Current Medications Albuterol/Ipratropium (Duoneb 3 Mg/0.5 Mg (3 Ml) Ud) 3 ml IH Q2H PRN; Protocol PRN Reason: Shortness of Breath Albuterol/Ipratropium (Duoneb 3 Mg/0.5 Mg (3 Ml) Ud) 3 ml IH [id number] [facility]; Protocol Last Admin: 06/12/18 07:21 Dose: 3 ml Arformoterol Tartrate (Brovana) 15 mcg IH [id number] [facility] Last Admin: 06/12/18 07:21 Dose: 15 mcg Aspirin (Ecotrin) 81 mg PO 0800 [facility]; Protocol Last Admin: 06/12/18 08:05 Dose: 81 mg Atorvastatin Calcium (Lipitor) 20 mg PO 1700 [facility]; Protocol Last Admin: 06/11/18 17:20 Dose: 20 mg Budesonide (Pulmicort Respules) 0.5 mg IH [id number] [facility] Last Admin: 06/12/18 07:22 Dose: 0.5 mg Cholecalciferol (Vitamin D) 1,000 intlu PO DAILY [facility]; Protocol Last Admin: 06/12/18 11:00 Dose: 1,000 intlu Levofloxacin (Levaquin) 500 mg PO DAILY [facility]; Protocol Last Admin: 06/12/18 11:00 Dose: 500 mg Magnesium Oxide (Mag-Ox) 400 mg PO BID [facility]; Protocol Last Admin: 06/12/18 11:00 Dose: 400 mg Metoprolol Succinate (Toprol Xl) 25 mg PO 0800 [facility]; Protocol Last Admin: 06/12/18 08:04 Dose: Not Given Pantoprazole Sodium (Protonix Ec Tab) 20 mg PO 0600 [facility]; Protocol Last Admin: 06/12/18 05:07 Dose: 20 mg Paroxetine HCl (Paxil) 20 mg PO DAILY [facility]; Protocol Last Admin: 06/12/18 11:00 Dose: 20 mg Prednisone (Prednisone Tab) 20 mg PO DAILY [facility] Last Admin: 06/12/18 11:09 Dose: 20 mg - Labs Labs: 06/12/18 06:30 06/12/18 06:30 - Constitutional Appears: No Acute Distress - Head Exam Head Exam: ATRAUMATIC - Eye Exam Eye Exam: EOMI Pupil Exam: PERRL - ENT Exam ENT Exam: Mucous Membranes Moist - Respiratory Exam Respiratory Exam: Clear to Ausculation Bilateral, NORMAL BREATHING PATTERN. absent: Wheezes, Respiratory Distress - Cardiovascular Exam Cardiovascular Exam: REGULAR RHYTHM, +S1, +S2 - GI/Abdominal Exam GI & Abdominal Exam: Soft, Normal Bowel Sounds. absent: Guarding, Rigid, Tenderness - Extremities Exam Extremities Exam: Normal Inspection. absent: Calf Tenderness - Neurological Exam Neurological Exam: Alert, Oriented x3 - Skin Skin Exam: Normal Color, Warm Assessment and Plan - Assessment and Plan (Free Text) Assessment: This is an 83 year old male with PMH of COPD, CHF pulmonary hypertension, former smoker, CAD, HLD, HTN, scoliosis, CVA and PPM for CHB presenting to the hospital for management of pneumonia and COPD. He is being managed in in the TCU with ph ysical therapy and is day 4 out of 8. Continue with rehab. Plan: Pneumonia -continue levaquin -afebrile, no WBC -pulm on consult COPD -continue borvanagudeliaonebs prn and franc, pulmicort -continue prednisone 20mg daily -pulm on consult Hx of CAD -continue ASA -cardiology on consult Hx of HTN -toprol XL 25mg Hx of HTN -continue lipitor Hx of depression -paroxetine Patient seen and examined with attending, Dr. Alcala <Haim Alcala - Last Filed: 06/12/18 18:42> Objective - Vital Signs/Intake and Output Vital Signs (last 24 hours): Temp Pulse Resp BP Pulse Ox 98.4 F 66 16 121/64 95 06/12/18 10:00 06/12/18 13:40 06/12/18 10:00 06/12/18 10:00 06/12/18 13:40 - Medications Medications: Current Medications Albuterol/Ipratropium (Duoneb 3 Mg/0.5 Mg (3 Ml) Ud) 3 ml IH Q2H PRN; Protocol PRN Reason: Shortness of Breath Albuterol/Ipratropium (Duoneb 3 Mg/0.5 Mg (3 Ml) Ud) 3 ml IH [id number] [facility]; Protocol Last Admin: 06/12/18 13:42 Dose: Not Given Arformoterol Tartrate (Brovana) 15 mcg IH [id number] [facility] Last Admin: 06/12/18 07:21 Dose: 15 mcg Aspirin (Ecotrin) 81 mg PO 0800 [facility]; Protocol Last Admin: 06/12/18 08:05 Dose: 81 mg Atorvastatin Calcium (Lipitor) 20 mg PO 1700 [facility]; Protocol Last Admin: 06/12/18 17:18 Dose: 20 mg Budesonide (Pulmicort Respules) 0.5 mg IH [id number] [facility] Last Admin: 06/12/18 07:22 Dose: 0.5 mg Cholecalciferol (Vitamin D) 1,000 intlu PO DAILY [facility]; Protocol Last Admin: 06/12/18 11:00 Dose: 1,000 intlu Levofloxacin (Levaquin) 500 mg PO DAILY [facility]; Protocol Last Admin: 06/12/18 11:00 Dose: 500 mg Magnesium Oxide (Mag-Ox) 400 mg PO BID [facility]; Protocol Last Admin: 06/12/18 17:19 Dose: 400 mg Metoprolol Succinate (Toprol Xl) 25 mg PO 0800 [facility]; Protocol Last Admin: 06/12/18 08:04 Dose: Not Given Pantoprazole Sodium (Protonix Ec Tab) 20 mg PO 0600 [facility]; Protocol Last Admin: 06/12/18 05:07 Dose: 20 mg Paroxetine HCl (Paxil) 20 mg PO DAILY [facility]; Protocol Last Admin: 06/12/18 11:00 Dose: 20 mg Prednisone (Prednisone Tab) 20 mg PO DAILY [facility] Last Admin: 06/12/18 11:09 Dose: 20 mg - Labs Labs: 06/12/18 06:30 06/12/18 06:30 Attending/Attestation - Attestation I have personally seen and examined this patient.: Yes I have fully participated in the care of the patient.: Yes I have reviewed all pertinent clinical information, including history, physical exam and plan: Yes Notes (Text): 06/12/18 18:40 83 year old male with past medical history of COPD and CHF who is currently in TCU for rehab therapy. He is being followed by pulmonary for COPD and cardiology for CHF. Continue with physical therapy as tolerated as per PT. Haim Alcala MD Hospitalist.
[2018-06-13] MEDS: Albuterol-Ipratrop 3 mg / 0.5 (3 ml) UD IH SCH ×4 (03:20→20:24)
[2018-06-13] MEDS: Pantoprazole 20 mg EC Tab PO SCH (05:21)
--- NOTE | 2018-06-13 07:24 | CP.PCM.PN ---
Subjective - Date & Time of Evaluation Date of Evaluation: 06/13/18 Time of Evaluation: 07:00 - Subjective Subjective: Stable in TCU. No CP, dyspnea. + Rehab efforts. V/S noted. PE: Lungs: rhonchi Cor: S1S2 Abd.: soft Ext.: mild edema Neuro.: alert Labs 06/12 noted: K+= 5.2, H/H = 10.1/34.7 Objective - Vital Signs/Intake and Output Vital Signs (last 24 hours): Temp Pulse Resp BP Pulse Ox 98.4 F 66 16 121/64 95 06/12/18 10:00 06/12/18 13:40 06/12/18 10:00 06/12/18 10:00 06/12/18 13:40 - Medications Medications: Current Medications Albuterol/Ipratropium (Duoneb 3 Mg/0.5 Mg (3 Ml) Ud) 3 ml IH Q2H PRN; Protocol PRN Reason: Shortness of Breath Albuterol/Ipratropium (Duoneb 3 Mg/0.5 Mg (3 Ml) Ud) 3 ml IH [id number] NUZHAT; Protocol Last Admin: 06/12/18 22:20 Dose: 3 ml Arformoterol Tartrate (Brovana) 15 mcg IH [id number] NUZHAT Last Admin: 06/12/18 22:20 Dose: 15 mcg Aspirin (Ecotrin) 81 mg PO 0800 [facility]; Protocol Last Admin: 06/12/18 08:05 Dose: 81 mg Atorvastatin Calcium (Lipitor) 20 mg PO 1700 [facility]; Protocol Last Admin: 06/12/18 17:18 Dose: 20 mg Budesonide (Pulmicort Respules) 0.5 mg IH [id number] NU[facility]AT Last Admin: 06/12/18 23:20 Dose: 0.5 mg Cholecalciferol (Vitamin D) 1,000 intlu PO DAILY [facility]; Protocol Last Admin: 06/12/18 11:00 Dose: 1,000 intlu Levofloxacin (Levaquin) 500 mg PO DAILY [facility]; Protocol Last Admin: 06/12/18 11:00 Dose: 500 mg Magnesium Oxide (Mag-Ox) 400 mg PO BID [facility]; Protocol Last Admin: 06/12/18 17:19 Dose: 400 mg Metoprolol Succinate (Toprol Xl) 25 mg PO 0800 [facility]; Protocol Last Admin: 06/12/18 08:04 Dose: Not Given Pantoprazole Sodium (Protonix Ec Tab) 20 mg PO 0600 [facility]; Protocol Last Admin: 06/13/18 05:21 Dose: 20 mg Paroxetine HCl (Paxil) 20 mg PO DAILY [facility]; Protocol Last Admin: 06/12/18 11:00 Dose: 20 mg Prednisone (Prednisone Tab) 20 mg PO DAILY [facility] Last Admin: 06/12/18 11:09 Dose: 20 mg - Labs Labs: 06/12/18 06:30 06/12/18 06:30 Assessment and Plan - Assessment and Plan (Free Text) Assessment: Dyspnea AMS/Possible Syncope at home/Possibly related to malfunctioning home O2 unit Severe COPD/PH/Former Smoker AVR PPM for CHB CAD/PCIs HBP HLD Cognitive Dysfunction Scoliosis LBBB CVA Plan: Check labs/K+ tomorrow. Hold Lasix today > PO tomorrow OOB/PT/Rehab Efforts As per Pulm. and Dr. Michael.
[2018-06-13 07:38] LABS: BLOOD UREA NITROGEN 33 mg/dL (7-21); CALCIUM 9.5 mg/dL (8.4-10.5); GFR NON-AFRICAN AMERICAN 53
[2018-06-13] MEDS: Metoprolol Succinate 25 mg XL Tab PO SCH (08:06)
--- NOTE | 2018-06-13 08:13 | PN ---
DATE: 06/13/2018 PULMONARY NOTE SUBJECTIVE: The patient appears very comfortable this morning. He is not short of breath at rest. OBJECTIVE: VITAL SIGNS: (Last noted in the computer): Temperature is 98.4, pulse 66, respirations 18, blood pressure 121/64. Oxygen saturation on nasal cannula is 95%. HEENT: Normocephalic, atraumatic. No JVD. CARDIOVASCULAR: Systolic ejection murmur at the lower left sternal border. Questionable S3 gallop. LUNGS: Clear bilaterally this morning. EXTREMITIES: Mild edema. No cyanosis, no clubbing. Calves are nontender to palpation. GI: Abdomen is soft, nontender and nondistended. Bowel sounds are positive. SKIN: No acute rash. NEUROLOGIC: Limited at the present time. IMPRESSION: 1. Acute bronchitis. 2. Advanced chronic obstructive pulmonary disease. 3. Congestive heart failure. 4. Mild anemia. PLAN: The patient appears very comfortable this morning. He is not short of breath at rest. He does state to feeling much, much better overall. On physical exam, his lungs are now clear. In addition, the alveolar-arterial gradient also continues to resolve. I will continue with the current nebulizer treatments and low-dose oral steroids (decreased yesterday) for now. The patient also remains on oral antibiotic therapy. There are no temperatures noted. There is no leukocytosis. Inputs by Cardiology are also noted. Clinical status of the patient is significantly improved - compared to his initial presentation. However, given the above, the future status/prognosis for this patient does remain guarded. I will discuss the above with the attending physician. Clint Jalloh MD LUCY
[2018-06-13] MEDS: Budesonide 0.5 mg/2 ml Inhal Susp UD IH SCH ×2 (08:58→20:25)
[2018-06-13] MEDS: Arformoterol 15 mcg/2 ml Inh Sol IH SCH ×2 (08:58→20:24)
[2018-06-13] MEDS: levoFLOXacin 500 MG TAB PO SCH (09:24)
[2018-06-13] MEDS: Magnesium Oxide 400 mg Tab UD PO SCH ×2 (09:24→17:13)
[2018-06-13] MEDS: Cholecalciferol 1,000 INTLU TAB PO SCH (09:25)
[2018-06-14] MEDS: Albuterol-Ipratrop 3 mg / 0.5 (3 ml) UD IH SCH ×4 (01:13→19:52)
[2018-06-14] MEDS: Pantoprazole 20 mg EC Tab PO SCH (05:12)
[2018-06-14 06:53] LABS: BLOOD UREA NITROGEN 33 mg/dL (7-21); CALCIUM 9.1 mg/dL (8.4-10.5); GFR NON-AFRICAN AMERICAN 53
--- NOTE | 2018-06-14 07:49 | CP.PCM.PN ---
Subjective - Date & Time of Evaluation Date of Evaluation: 06/14/18 Time of Evaluation: 07:00 - Subjective Subjective: Stable in TCU. No CP, dyspnea. + Ambulation and Rehab efforts. V/S noted. PE: Lungs: rhonchi Cor: S1S2 Abd.: soft Ext.: mild edema Neuro.: alert Labs noted: K+= 4.8, BUN = 33, Cr.= 1.3 Objective - Vital Signs/Intake and Output Vital Signs (last 24 hours): Temp Pulse Resp BP Pulse Ox 98.5 F 70 14 126/62 98 06/13/18 10:00 06/13/18 10:00 06/13/18 10:00 06/13/18 10:00 06/13/18 10:00 Intake and Output: 06/14/18 06/14/18 06:59 18:59 Intake Total 360 Balance 360 - Medications Medications: Current Medications Albuterol/Ipratropium (Duoneb 3 Mg/0.5 Mg (3 Ml) Ud) 3 ml IH Q2H PRN; Protocol PRN Reason: Shortness of Breath Albuterol/Ipratropium (Duoneb 3 Mg/0.5 Mg (3 Ml) Ud) 3 ml IH [id number] NUZHAT; Protocol Last Admin: 06/14/18 01:13 Dose: Not Given Arformoterol Tartrate (Brovana) 15 mcg IH [id number] NU[facility]AT Last Admin: 06/13/18 20:24 Dose: 15 mcg Aspirin (Ecotrin) 81 mg PO 0800 [facility]; Protocol Last Admin: 06/13/18 08:06 Dose: 81 mg Atorvastatin Calcium (Lipitor) 20 mg PO 1700 [facility]; Protocol Last Admin: 06/13/18 17:13 Dose: 20 mg Budesonide (Pulmicort Respules) 0.5 mg IH [id number] NUZHAT Last Admin: 06/13/18 20:25 Dose: 0.5 mg Cholecalciferol (Vitamin D) 1,000 intlu PO DAILY [facility]; Protocol Last Admin: 06/13/18 09:25 Dose: 1,000 intlu Furosemide (Lasix) 20 mg PO DAILY [facility] Levofloxacin (Levaquin) 500 mg PO DAILY [facility]; Protocol Last Admin: 06/13/18 09:24 Dose: 500 mg Magnesium Oxide (Mag-Ox) 400 mg PO BID [facility]; Protocol Last Admin: 06/13/18 17:13 Dose: 400 mg Metoprolol Succinate (Toprol Xl) 25 mg PO 0800 [facility]; Protocol Last Admin: 06/13/18 08:06 Dose: 25 mg Pantoprazole Sodium (Protonix Ec Tab) 20 mg PO 0600 [facility]; Protocol Last Admin: 06/14/18 05:12 Dose: 20 mg Paroxetine HCl (Paxil) 20 mg PO DAILY [facility]; Protocol Last Admin: 06/13/18 09:25 Dose: 20 mg Potassium Chloride (K-Dur 20 Meq Er Tab) 20 meq PO BRK [facility] Prednisone (Prednisone Tab) 20 mg PO DAILY [facility] Last Admin: 06/13/18 09:25 Dose: 20 mg - Labs Labs: 06/12/18 06:30 06/14/18 06:00 Assessment and Plan - Assessment and Plan (Free Text) Assessment: Dyspnea AMS/Possible Syncope at home/Possibly related to malfunctioning home O2 unit Severe COPD/PH/Former Smoker AVR PPM for CHB CAD/PCIs HBP HLD Cognitive Dysfunction Scoliosis LBBB CVA Plan: Lasix 20/day, KCL 20 Deepika/day OOB/PT/Rehab Efforts As per Pulm. and Dr. Michael.
[2018-06-14] MEDS: Metoprolol Succinate 25 mg XL Tab PO SCH (07:53)
[2018-06-14] MEDS: Potassium Chloride 20 mEq ER Tab PO SCH (08:37)
[2018-06-14] MEDS: Arformoterol 15 mcg/2 ml Inh Sol IH SCH ×2 (08:39→19:52)
[2018-06-14] MEDS: Budesonide 0.5 mg/2 ml Inhal Susp UD IH SCH ×2 (08:39→19:52)
--- NOTE | 2018-06-14 08:48 | PN ---
DATE: 06/14/2018 PULMONARY NOTE SUBJECTIVE: The patient appears comfortable this morning. He is not short of breath at rest. OBJECTIVE: VITAL SIGNS: Temperature is 98.5, pulse is 65, respiratory rate 18, blood pressure 121/58. Oxygen saturation on nasal cannula is 98%. HEENT: Normocephalic, atraumatic. No JVD. CARDIOVASCULAR: Systolic ejection murmur at the lower left sternal border. No S3 gallop. LUNGS: Clear bilaterally. EXTREMITIES: Mild edema. No cyanosis, no clubbing. Calves are nontender to palpation. GI: Abdomen is soft, nontender and nondistended. Bowel sounds are positive. SKIN: No acute rash. NEUROLOGIC: Limited at the present time. IMPRESSION: 1. Acute bronchitis. 2. Advanced chronic obstructive pulmonary disease. 3. Congestive heart failure. 4. Mild anemia. PLAN: The patient appears very comfortable this morning. He is not short of breath at rest. He does state to feeling much better overall. On physical exam, his lungs remain clear. In addition, the oxygen saturation on nasal cannula is now 98%. I will continue the current nebulizer treatments and low-dose oral steroids for now. The patient also remains on oral antibiotic therapy. There are no temperatures noted. There is no leukocytosis. I would continue with the treatment for congestive heart failure as per Cardiology. Input by Dr. Bronson is noted. The patient remains on Lasix. Clinical status of the patient is significantly improved - compared to the initial presentation. However, given the above, the future status/prognosis for this elderly patient does remain guarded. I will discuss the above with the attending physician. Clint Jalloh MD LUCY
[2018-06-14] MEDS: levoFLOXacin 500 MG TAB PO SCH (10:18)
[2018-06-14] MEDS: Magnesium Oxide 400 mg Tab UD PO SCH ×2 (10:19→17:41)
[2018-06-14] MEDS: Cholecalciferol 1,000 INTLU TAB PO SCH (10:20)
--- NOTE | 2018-06-14 12:02 | CP.PCM.PN ---
<Nayeli Meier - Last Filed: 06/14/18 11:59> Subjective - Date & Time of Evaluation Date of Evaluation: 06/14/18 Time of Evaluation: 10:42 - Subjective Subjective: Nayeli Meier PGY1 Hospital Progress Note Patient seen and examined at bedside. No acute events overnight. Offers no complaints today. Today is day 6 out of 8 for TCU. Tolerating diet well and sleeping well. Objective - Vital Signs/Intake and Output Vital Signs (last 24 hours): Temp Pulse Resp BP Pulse Ox 97.8 F 75 16 142/72 96 06/14/18 09:30 06/14/18 09:30 06/14/18 09:30 06/14/18 10:14 06/14/18 09:30 Intake and Output: 06/14/18 06/14/18 06:59 18:59 Intake Total 360 Balance 360 - Medications Medications: Current Medications Albuterol/Ipratropium (Duoneb 3 Mg/0.5 Mg (3 Ml) Ud) 3 ml IH Q2H PRN; Protocol PRN Reason: Shortness of Breath Albuterol/Ipratropium (Duoneb 3 Mg/0.5 Mg (3 Ml) Ud) 3 ml IH [id number] NUZHAT; Protocol Last Admin: 06/14/18 08:39 Dose: 3 ml Arformoterol Tartrate (Brovana) 15 mcg IH [id number] NUZHAT Last Admin: 06/14/18 08:39 Dose: 15 mcg Aspirin (Ecotrin) 81 mg PO 0800 NUZHAT; Protocol Last Admin: 06/14/18 07:52 Dose: 81 mg Atorvastatin Calcium (Lipitor) 20 mg PO 1700 NUZHAT; Protocol Last Admin: 06/13/18 17:13 Dose: 20 mg Budesonide (Pulmicort Respules) 0.5 mg IH [id number] NUZHAT Last Admin: 06/14/18 08:39 Dose: 0.5 mg Cholecalciferol (Vitamin D) 1,000 intlu PO DAILY NUZHAT; Protocol Last Admin: 06/14/18 10:20 Dose: 1,000 intlu Furosemide (Lasix) 20 mg PO DAILY NUZHAT Last Admin: 06/14/18 10:14 Dose: 20 mg Levofloxacin (Levaquin) 500 mg PO DAILY NUZHAT; Protocol Last Admin: 06/14/18 10:18 Dose: 500 mg Magnesium Oxide (Mag-Ox) 400 mg PO BID [facility]; Protocol Last Admin: 06/14/18 10:19 Dose: 400 mg Metoprolol Succinate (Toprol Xl) 25 mg PO 0800 [facility]; Protocol Last Admin: 06/14/18 07:53 Dose: Not Given Pantoprazole Sodium (Protonix Ec Tab) 20 mg PO 0600 [facility]; Protocol Last Admin: 06/14/18 05:12 Dose: 20 mg Paroxetine HCl (Paxil) 20 mg PO DAILY [facility]; Protocol Last Admin: 06/14/18 10:19 Dose: 20 mg Potassium Chloride (K-Dur 20 Meq Er Tab) 20 meq PO BRK [facility] Last Admin: 06/14/18 08:37 Dose: 20 meq Prednisone (Prednisone Tab) 20 mg PO DAILY [facility] Last Admin: 06/14/18 10:19 Dose: 20 mg - Labs Labs: 06/12/18 06:30 06/14/18 06:00 - Additional Findings Additional findings: - Constitutional Appears: No Acute Distress - Head Exam Head Exam: ATRAUMATIC - Eye Exam Eye Exam: EOMI Pupil Exam: PERRL - ENT Exam ENT Exam: Mucous Membranes Moist - Respiratory Exam Respiratory Exam: Clear to Ausculation Bilateral, NORMAL BREATHING PATTERN. absent: Wheezes, Respiratory Distress - Cardiovascular Exam Cardiovascular Exam: REGULAR RHYTHM, +S1, +S2 - GI/Abdominal Exam GI & Abdominal Exam: Soft, Normal Bowel Sounds. absent: Guarding, Rigid, Tenderness - Extremities Exam Extremities Exam: Normal Inspection. absent: Calf Tenderness - Neurological Exam Neurological Exam: Alert, Oriented x3 - Skin Skin Exam: Normal Color, Warm Assessment and Plan - Assessment and Plan (Free Text) Assessment: This is an 83 year old male with PMH of COPD, CHF pulmonary hypertension, former smoker, CAD, HLD, HTN, scoliosis, CVA and PPM for CHB presenting to the hospital for management of pneumonia and COPD. He is being managed in in the TCU with physical therapy and is day 6 out of 8. Continue with rehab. Plan: Pneumonia -continue levaquin. Will complete course on tuesday -afebrile, no WBC -pulm on consult COPD -continue borvana, duonebs prn and nuzhat, pulmicort -tapering down prednisone, 10mg for 3 days (today is day 1 out of 3), then 5 mg for 3 days -pulm on consult Hx of CAD -continue ASA -cardiology on consult Hx of HTN -toprol XL 25mg -lasix 20mg daily Hx of HLD -continue lipitor Hx of depression -paroxetine Patient seen and examined with attending, Dr. Baeza <Dex Baeza - Last Filed: 06/15/18 15:39> Objective - Vital Signs/Intake and Output Vital Signs (last 24 hours): Temp Pulse Resp BP Pulse Ox 97.8 F 67 16 140/70 95 06/14/18 09:30 06/15/18 07:49 06/14/18 09:30 06/15/18 10:16 06/14/18 15:55 - Medications Medications: Current Medications Albuterol/Ipratropium (Duoneb 3 Mg/0.5 Mg (3 Ml) Ud) 3 ml IH Q2H PRN; Protocol PRN Reason: Shortness of Breath Albuterol/Ipratropium (Duoneb 3 Mg/0.5 Mg (3 Ml) Ud) 3 ml IH [id number] NUZHAT; Protocol Last Admin: 06/15/18 13:10 Dose: 3 ml Arformoterol Tartrate (Brovana) 15 mcg IH [id number] NUZHAT Last Admin: 06/15/18 07:08 Dose: 15 mcg Aspirin (Ecotrin) 81 mg PO 0800 NUZHAT; Protocol Last Admin: 06/15/18 07:49 Dose: 81 mg Atorvastatin Calcium (Lipitor) 20 mg PO 1700 NUZHAT; Protocol Last Admin: 06/14/18 17:41 Dose: 20 mg Budesonide (Pulmicort Respules) 0.5 mg IH [id number] NUZHAT Last Admin: 06/15/18 07:08 Dose: 0.5 mg Cholecalciferol (Vitamin D) 1,000 intlu PO DAILY NUZHAT; Protocol Last Admin: 06/15/18 10:16 Dose: 1,000 intlu Furosemide (Lasix) 20 mg PO DAILY NUZHAT Last Admin: 06/15/18 10:16 Dose: 20 mg Magnesium Oxide (Mag-Ox) 400 mg PO BID NUZHAT; Protocol Last Admin: 06/15/18 10:16 Dose: 400 mg Metoprolol Succinate (Toprol Xl) 25 mg PO 0800 NUZHAT; Protocol Last Admin: 06/15/18 07:49 Dose: 25 mg Pantoprazole Sodium (Protonix Ec Tab) 20 mg PO 0600 [facility]; Protocol Last Admin: 06/15/18 05:40 Dose: 20 mg Paroxetine HCl (Paxil) 20 mg PO DAILY [facility]; Protocol Last Admin: 06/15/18 10:16 Dose: 20 mg Potassium Chloride (K-Dur 20 Meq Er Tab) 20 meq PO BRK [facility] Last Admin: 06/15/18 07:50 Dose: 20 meq Prednisone (Prednisone Tab) 10 mg PO DAILY [facility] Last Admin: 06/15/18 10:16 Dose: 10 mg - Labs Labs: 06/12/18 06:30 06/14/18 06:00 Attending/Attestation - Attestation I have personally seen and examined this patient.: Yes I have fully participated in the care of the patient.: Yes I have reviewed all pertinent clinical information, including history, physical exam and plan: Yes Notes (Text): 06/15/18 15:39 Medical record note made by the resident after discussion with my direction and input after the patient was personally seen and examined by me. I have reviewed the chart and agree that the record accurately reflects by personal performance of the history, physical exam, data review, and medical decision-making, in the course for the patient. I have also personally directed the plan of care.
[2018-06-15] MEDS: Albuterol-Ipratrop 3 mg / 0.5 (3 ml) UD IH SCH ×4 (02:09→21:40)
[2018-06-15] MEDS: Pantoprazole 20 mg EC Tab PO SCH (05:40)
[2018-06-15] MEDS: Budesonide 0.5 mg/2 ml Inhal Susp UD IH SCH (07:08)
[2018-06-15] MEDS: Arformoterol 15 mcg/2 ml Inh Sol IH SCH ×2 (07:08→21:40)
[2018-06-15] MEDS: Metoprolol Succinate 25 mg XL Tab PO SCH (07:49)
[2018-06-15] MEDS: Potassium Chloride 20 mEq ER Tab PO SCH (07:50)
[2018-06-15] MEDS: Cholecalciferol 1,000 INTLU TAB PO SCH (10:16)
[2018-06-15] MEDS: Magnesium Oxide 400 mg Tab UD PO SCH ×2 (10:16→17:03)
[2018-06-15 16:35] VITALS: RESP 20; TEMP 98.5
[2018-06-16] MEDS: Albuterol-Ipratrop 3 mg / 0.5 (3 ml) UD IH SCH ×2 (03:00→07:16)
[2018-06-16] MEDS: Pantoprazole 20 mg EC Tab PO SCH (05:56)
[2018-06-16] MEDS: Budesonide 0.5 mg/2 ml Inhal Susp UD IH SCH (07:16)
[2018-06-16] MEDS: Arformoterol 15 mcg/2 ml Inh Sol IH SCH (07:16)
[2018-06-16] MEDS: Metoprolol Succinate 25 mg XL Tab PO SCH (08:12)
[2018-06-16] MEDS: Potassium Chloride 20 mEq ER Tab PO SCH (08:12)
[2018-06-16 08:13] VITALS: BP 163/83
[2018-06-16] MEDS: Magnesium Oxide 400 mg Tab UD PO SCH (09:31)
[2018-06-16] MEDS: Cholecalciferol 1,000 INTLU TAB PO SCH (09:31)
--- NOTE | 2018-06-16 11:36 | PN ---
DATE: 06/16/2018 SUBJECTIVE: The patient was seen and examined on transitional care unit. He states he feels better, but still coughing and short of breath on exertion. PHYSICAL EXAMINATION: VITAL SIGNS: Temperature 98.4, blood pressure 117/74, pulse 84 and respirations 20. HEAD: Normocephalic and atraumatic. NECK: Supple with no jugular vein distention. CARDIOVASCULAR: S1 and S2. No S3. Regular. PULMONARY: There is severe kyphoscoliosis present and diminished breath sounds bilaterally with few bilateral rhonchi. No wheezing. GASTROINTESTINAL: Soft and nontender. No organomegaly. EXTREMITIES: No pedal edema. NEUROLOGIC: Limited at the present time. SKIN: No acute skin rash. ASSESSMENT: 1. Excerebration of chronic obstructive pulmonary disease. 2. Acute bronchitis. 3. Congestive heart failure. 4. Mild anemia. PLAN: The patient continues to improve, but he still is short of breath on exertion and also desaturates on exertion. We will make arrangements for portable oxygen as well as concentrate there when he is being discharged. He is on low dose oral steroids that should continue. Continue nebulizer treatments as ordered. Skyler Capps MD
--- NOTE | 2018-06-16 12:25 | CP.PCM.DIS ---
<Nayeli Meier - Last Filed: 06/16/18 12:12> Provider - Provider Date of Admission: 06/08/18 16:42 Attending physician: Haim Alcala MD Primary care physician: Dr. 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 Referral Routine Comment: chf/deconditioning Physician Instructions: Reason For Exam: eval Social Work Referral Routine Comment: d/c plan Physician Instructions: Reason For Exam: eval Transition In Care/Readmission Reduction Routine Comment: chf/deconditioning Physician Instructions: Reason For Exam: eval 06/09/18 09:02 Physician Consult Routine Comment: Consulting Provider: Clint Jalloh Consulting Physician: Clint Jalloh Reason for Consult: r/o narcolepsy Time Spent in preparation of Discharge (in minutes): 35 Hospital Course - Lab Results Lab Results: Most Recent Lab Values WBC 9.7 10^3/uL (4.5-11.0) 06/12/18 06:30 RBC 3.43 10^6/uL (3.5-6.1) L 06/12/18 06:30 Hgb 10.1 g/dL (14.0-18.0) L 06/12/18 06:30 Hct 34.7 % (42.0-52.0) L 06/12/18 06:30 MCV 101.2 fl (80.0-105.0) 06/12/18 06:30 MCH 29.4 pg (25.0-35.0) 06/12/18 06:30 MCHC 29.1 g/dl (31.0-37.0) L 06/12/18 06:30 RDW 13.9 % (11.5-14.5) 06/12/18 06:30 Plt Count 279 10^3/uL (120.0-450.0) 06/12/18 06:30 MPV 9.2 fl (7.0-11.0) 06/12/18 06:30 Gran % 78.5 % (50.0-68.0) H 06/12/18 06:30 Lymph % (Auto) 13.2 % (22.0-35.0) L 06/12/18 06:30 [place] % (Auto) 7.7 % (1.0-6.0) H 06/12/18 06:30 Eos % (Auto) 0.5 % (1.5-5.0) L 06/12/18 06:30 Baso % (Auto) 0.1 % (0.0-3.0) 06/12/18 06:30 Gran # 7.64 (1.4-6.5) H 06/12/18 06:30 Lymph # (Auto) 1.3 (1.2-3.4) 06/12/18 06:30 [place] # (Auto) 0.8 (0.1-0.6) H 06/12/18 06:30 Eos # (Auto) 0.1 (0.0-0.7) 06/12/18 06:30 Baso # (Auto) 0.01 K/mm3 (0.0-2.0) 06/12/18 06:30 Sodium 134 mmol/L (132-148) 06/14/18 06:00 Potassium 4.8 mmol/L (3.6-5.0) 06/14/18 06:00 Chloride 92 mmol/L (98-107) L 06/14/18 06:00 Carbon Dioxide 40 mmol/L (21-33) H 06/14/18 06:00 Anion Gap 7 (10-20) L 06/14/18 06:00 BUN 33 mg/dL (7-21) H 06/14/18 06:00 Creatinine 1.3 mg/dl (0.8-1.5) 06/14/18 06:00 Est GFR ( Amer) > 60 06/14/18 06:00 Est GFR (Non-Af Amer) 53 06/14/18 06:00 Random Glucose 79 mg/dL (70-110) 06/14/18 06:00 Calcium 9.1 mg/dL (8.4-10.5) 06/14/18 06:00 Magnesium 2.3 mg/dL (1.7-2.2) H 06/10/18 06:00 - Hospital Course Hospital Course: This is an 83 year old male with PMH of COPD on home oxygen, CHF, pulm HTN, CAD, HTN, HTN, CVA and PPM for CHB who presented to the TCU on 06/08 for rehab after being managed inpatient for 3 days for cough concerning for COPD exacerbation vs pneumonia. Patient completed course of levaquin and was given prednisone 10mg for his SOB which was later tapered down to 5mg upon discharge. Patient's breat giles status improved during TCU course and performed physical therapy as directed with recommendation of home with services. He was given duonebs prn and franc, brovana, pulmicort, lasix decreased from 40mg to 20mg as per cardiology recommendations and toprol XL 25 mg daily. Today, on day of discharge, patient states he is ready to go home and all questions and concerns were answered. 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 Discharge Exam - Additional Findings Additional findings: - Constitutional Appears: No Acute Distress - Head Exam Head Exam: ATRAUMATIC - Eye Exam Eye Exam: EOMI Pupil Exam: PERRL - ENT Exam ENT Exam: Mucous Membranes Moist - Respiratory Exam Respiratory Exam: Clear to Ausculation Bilateral, NORMAL BREATHING PATTERN. absent: Wheezes, Respiratory Distress - Cardiovascular Exam Cardiovascular Exam: REGULAR RHYTHM, +S1, +S2 - GI/Abdominal Exam GI & Abdominal Exam: Soft, Normal Bowel Sounds. absent: Guarding, Rigid, Tenderness - Extremities Exam Extremities Exam: Normal Inspection. absent: Calf Tenderness - Neurological Exam Neurological Exam: Alert, Oriented x3 - Skin Skin Exam: Normal Color, Warm Discharge Plan - Discharge Medications Prescriptions: Aspirin [Ecotrin] 81 mg PO DAILY 14 Days #14 tabec Atorvastatin [Lipitor] 20 mg PO 1700 #14 tab Cholecalciferol (Vitamin D3) [Vitamin D3] 1,000 iu PO DAILY #14 tab.chew Furosemide [Lasix] 20 mg PO DAILY #20 tab Magnesium Oxide [Mag-Ox] 400 mg PO BID 14 Days #28 tab Metoprolol Succinate [Toprol Xl] 25 mg PO DAILY #24 tab.er.24h Pantoprazole [Protonix EC Tab] 20 mg PO DAILY #30 ect Prednisone [Leo] 5 mg PO DAILY #7 tablet.dr - Follow Up Plan Condition: GOOD Disposition: HOME/ ROUTINE Instructions: Chronic Obstructive Pulmonary Disease (COPD), Including Emphysema, Heart Failure, Adult (DC), Oxygen Therapy, Adult (DC) Additional Instructions: Please follow up with your primary care doctor, Dr. Michael within 5-7 days of discharge. Please follow up with your flute teacher, Dr. Jalloh within 5-7 days of discharge. Please follow up with your bottom pounder cement shoes, Dr. Bronson within 5-7 days of discharge. Please continue taking your home medications. Your lasix dose has been changed to 20mg daily. You have been given a script for 14 days. Please get refills from your primary care doctor. You will be given a script for prednisone 5mg once daily for 7 days and you will follow up with your primary care doctor for refills. Please return to the ED for any new or worsening symptoms. Referrals: Ramy Michael MD [Family Provider] - Uriel Bronson MD [Staff Provider] - Clint Jalloh MD [Staff Provider] - <Dex Baeza - Last Filed: 06/16/18 15:43> Provider - Provider Date of Admission: 06/08/18 16:42 Attending physician: Haim Alcala MD Consults: 06/08/18 17:58 Physician Consult Routine Comment: Consulting Provider: Uriel Bronson Consulting Physician: Uriel Bronson Reason for Consult: BNP elevation 06/08/18 17:59 Physician Consult Routine Comment: Consulting Provider: Chinedu Friedman Consulting Physician: Chinedu Friedman Reason for Consult: BNP elevation 06/08/18 18:00 Physician Consult Routine Comment: Consulting Provider: Clint Jalloh Consulting Physician: Clint Jalloh Reason for Consult: COPD 06/08/18 22:40 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 Routine Comment: chf/deconditioning Physician Instructions: Reason For Exam: eval Social Work Referral Routine Comment: d/c plan Physician Instructions: Reason For Exam: eval Transition In Care/Readmission Reduction Routine Comment: chf/deconditioning Physician Instructions: Reason For Exam: eval 06/09/18 09:02 Physician Consult Routine Comment: Consulting Provider: Clint Jalloh Consulting Physician: Clint Jalloh Reason for Consult: r/o narcolepsy Hospital Course - Lab Results Lab Results: Most Recent Lab Values WBC 9.7 10^3/uL (4.5-11.0) 06/12/18 06:30 RBC 3.43 10^6/uL (3.5-6.1) L 06/12/18 06:30 Hgb 10.1 g/dL (14.0-18.0) L 06/12/18 06:30 Hct 34.7 % (42.0-52.0) L 06/12/18 06:30 MCV 101.2 fl (80.0-105.0) 06/12/18 06:30 MCH 29.4 pg (25.0-35.0) 06/12/18 06:30 MCHC 29.1 g/dl (31.0-37.0) L 06/12/18 06:30 RDW 13.9 % (11.5-14.5) 06/12/18 06:30 Plt Count 279 10^3/uL (120.0-450.0) 06/12/18 06:30 MPV 9.2 fl (7.0-11.0) 06/12/18 06:30 Gran % 78.5 % (50.0-68.0) H 06/12/18 06:30 Lymph % (Auto) 13.2 % (22.0-35.0) L 06/12/18 06:30 [place] % (Auto) 7.7 % (1.0-6.0) H 06/12/18 06:30 Eos % (Auto) 0.5 % (1.5-5.0) L 06/12/18 06:30 Baso % (Auto) 0.1 % (0.0-3.0) 06/12/18 06:30 Gran # 7.64 (1.4-6.5) H 06/12/18 06:30 Lymph # (Auto) 1.3 (1.2-3.4) 06/12/18 06:30 [place] # (Auto) 0.8 (0.1-0.6) H 06/12/18 06:30 Eos # (Auto) 0.1 (0.0-0.7) 06/12/18 06:30 Baso # (Auto) 0.01 K/mm3 (0.0-2.0) 06/12/18 06:30 Sodium 134 mmol/L (132-148) 06/14/18 06:00 Potassium 4.8 mmol/L (3.6-5.0) 06/14/18 06:00 Chloride 92 mmol/L (98-107) L 06/14/18 06:00 Carbon Dioxide 40 mmol/L (21-33) H 06/14/18 06:00 Anion Gap 7 (10-20) L 06/14/18 06:00 BUN 33 mg/dL (7-21) H 06/14/18 06:00 Creatinine 1.3 mg/dl (0.8-1.5) 06/14/18 06:00 Est GFR ( Amer) > 60 06/14/18 06:00 Est GFR (Non-Af Amer) 53 06/14/18 06:00 Random Glucose 79 mg/dL (70-110) 06/14/18 06:00 Calcium 9.1 mg/dL (8.4-10.5) 06/14/18 06:00 Magnesium 2.3 mg/dL (1.7-2.2) H 06/10/18 06:00 Attending/Attestation - Attestation I have personally seen and examined this patient.: Yes I have fully participated in the care of the patient.: Yes I have reviewed all pertinent clinical information, including history, physical exam and plan: Yes Notes (Text): 06/16/18 15:40 Medical record note made by the resident after discussion with my direction and input after the patient was personally seen and examined by me. I have reviewed the chart and agree that the record accurately reflects by personal performance of the history, physical exam, data review, and medical decision-making, in the course for the patient. I have also personally directed the plan of care. 83 year old male with PMH of COPD on home oxygen, CHF, pulm HTN, CAD, HTN, HTN, CVA and PPM for CHB who presented to the TCU on 06/08 for rehab after being managed inpatient for COPD exacerbation and possible pneumonia. Patient completed course of levaquin and was given prednisone 10mg for his SOB which was later tapered down to 5mg upon discharge as recommended by his [employer] H[employer] Attacher. Patient's breathing status improved during TCU course and performed physical therapy as directed with recommendation of home with services. 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 Management plan was discussed in detail with patient. Education was provided.
[2018-06-16 13:11] VITALS: PULSE 69; O2SAT 98
== END 2018-06-16 15:24 | disposition home or self-care (01) | DRG 190 ==
LOC: TRCU 16:42
PROVIDERS: ADMIT Internal Medicine; ATTEND Internal Medicine
PROC: F07Z9ZZ Gait Training/Functional Ambulation Treatment (ICD-10-PCS; principal; 2018-06-09)
PROC: F07M6ZZ Therapeutic Exercise Treatment of Musculoskeletal System - Whole Body (ICD-10-PCS; 2018-06-09)
PROC: F08Z1ZZ Dressing Techniques Treatment (ICD-10-PCS; 2018-06-09)
PROC: F08Z2ZZ Grooming/Personal Hygiene Treatment (ICD-10-PCS; 2018-06-09)
PROC: F08Z0ZZ Bathing/Showering Techniques Treatment (ICD-10-PCS; 2018-06-09)
PROC: F08Z4ZZ Home Management Treatment (ICD-10-PCS; 2018-06-09)
DX: J44.1 Chronic obstructive pulmonary disease with (acute) exacerbation (principal); J18.9 Pneumonia, unspecified organism; J44.0 Chronic obstructive pulmonary disease with (acute) lower respiratory infection; I50.9 Heart failure, unspecified; D64.9 Anemia, unspecified; E78.5 Hyperlipidemia, unspecified; I11.0 Hypertensive heart disease with heart failure; I25.10 Atherosclerotic heart disease of native coronary artery without angina pectoris; I27.20 Pulmonary hypertension, unspecified; I44.7 Left bundle-branch block, unspecified; Z86.73 Personal history of transient ischemic attack (TIA), and cerebral infarction without residual deficits; J20.9 Acute bronchitis, unspecified; M41.9 Scoliosis, unspecified; Z87.01 Personal history of pneumonia (recurrent); Z87.891 Personal history of nicotine dependence; Z99.81 Dependence on supplemental oxygen

== ENCOUNTER 2018-06-30 19:44 | Inpatient (IN) | payer MEDICARE, BC ==
--- NOTE | 2018-06-30 20:16 | ED PDOC ---
Arrival/HPI - General Chief Complaint: Weakness/Neurological Deficit Time Seen by Provider: 06/30/18 19:54 Historian: Patient - History of Present Illness Narrative History of Present Illness (Text): 06/30/18 20:11 83yo male with pmhx of CHF, COPD, MVP s/p surgery years ago, pacemaker bib EMS with the family by the bedside stating that patient was weak and drooling at home with a pulse ox of 60% when he woke up this evening. Notes that patient is always on 3L of oxygen at home. Patient was AAO x3 in ED. He denies chest pain, SOB, diaphoresis, nausea, vomiting, diarrhea, constipation, urinary symptoms, dizziness, headache, focal weakness, any other complaint. Past Medical History - Provider Review Nursing Documentation Reviewed: Yes - Infectious Disease Hx of Infectious Diseases: None - Tetanus Immunization Tetanus Immunization: Unknown - Cardiac Hx Cardiac Disorders: Yes Hx Congestive Heart Failure: Yes Hx Hypertension: Yes - Pulmonary Hx Respiratory Disorders: Yes (SMOKED CIGARETTES H/O PPD) Hx Pneumonia: Yes (2x since ) - Neurological HX Cerebrovascular Accident: Yes - HEENT Hx HEENT Disorder: No - Endocrine/Metabolic Hx Endocrine Disorders: No - Hematological/Oncological Hx Blood Disorders: No - Integumentary Hx Dermatological Disorder: No - Musculoskeletal/Rheumatological Hx Falls: No - Gastrointestinal Hx Gastrointestinal Disorders: Yes (HERNIORHAPPY,GERD,DIVERTICULITIS,GI BLEED,CONSTIPATION) - Genitourinary/Gynecological Hx Reproductive Disorders: No - Psychiatric Hx Psychophysiologic Disorder: Yes (ETOH -DRINKS SOCIALLY,SMOPKED PPD H/O) Hx Depression: Yes Hx Emotional Abuse: No Hx Physical Abuse: No Hx Substance Use: No - Surgical History Hx Open Heart Surgery: Yes - Anesthesia Hx Anesthesia: No - Suicidal Assessment Feels Threatened In Home Enviroment: No Family/Social History Family/Social History: Unknown Family HX Smoking Status: Former Smoker Hx Alcohol Use: Yes (SOCIALLY QUIT) Hx Substance Use: No Hx Substance Use Treatment: No Allergies/Home Meds Allergies/Adverse Reactions: Allergies No Known Allergies Allergy (Verified 06/30/18 19:57) Home Medications: Home Meds Medication Instructions Recorded Confirmed RX: Paroxetine HCl [Paxil] 20 mg PO DAILY 10/01/16 06/08/18 Review of Systems - Physician Review All systems were reviewed & negative as marked: Yes - Review of Systems Constitutional: Fatigue Eyes: Normal ENT: Normal Respiratory: Normal Cardiovascular: Normal Gastrointestinal: Normal Genitourinary Male: Normal Musculoskeletal: Normal Skin: Normal Neurological: Normal Endocrine: Normal Hemo/Lymphatic: Normal Psychiatric: Normal Physical Exam Vital Signs Reviewed: Yes Vital Signs Pulse Resp BP Pulse Ox 06/30/18 20:01 82 19 161/77 H 96 Temperature: Afebrile Blood Pressure: Normal Pulse: Regular Respiratory Rate: Normal Appearance: Positive for: Well-Appearing, Non-Toxic, Comfortable Pain Distress: None Mental Status: Positive for: Alert and Oriented X 3 - Systems Exam Head: Present: Atraumatic, Normocephalic Pupils: Present: PERRL Extroacular Muscles: Present: EOMI Conjunctiva: Present: Normal Mouth: Present: Moist Mucous Membranes Neck: Present: Normal Range of Motion Respiratory/Chest: Present: Clear to Auscultation, Good Air Exchange. No: Respiratory Distress, Accessory Muscle Use, Wheezes, Decreased Breath Sounds, Rales, Retracting, Rhonchi Cardiovascular: Present: Regular Rate and Rhythm, Normal S1, S2. No: Murmurs Abdomen: No: Tenderness, Distention, Peritoneal Signs Back: Present: Normal Inspection Upper Extremity: Present: Normal Inspection. No: Cyanosis, Edema Lower Extremity: Present: Normal Inspection. No: Edema Neurological: Present: GCS=15, CN II-XII Intact, Speech Normal Skin: Present: Warm, Dry, Normal Color. No: Rashes Psychiatric: Present: Alert, Oriented x 3, Normal Insight, Normal Concentration Medical Decision Making ED Course and Treatment: 07/01/18 00:16 83yo male bib the family for generalized weakness, drooling, hypoxia. Labs EKG Chest xray EKG Completely paced rhythm @70bpm Labs was reviewed and elevated BNP and LFT was noted, otherwise nonspecific LAsix ordered Chest xray - Cardiomegaly. NAD EXAM: CT Head without Intravenous Contrast. IMPRESSION: 1. There is generalized parenchymal atrophy noted as demonstrated by symmetrical dilatation of ventricles and sulci. 2. Chronic periventricular and subcortical microvascular disease is seen. 3. No acute intracranial pathology. Electronically signed on Jun 30, 2018 10:06:43 PM EST by: David Womack M.D., ANTONY Certified By [facility] Fellowship Trained MRI and CT Specialist Case was DW Dr. Michael and pt was admitted for CHF - RAD Interpretation Radiology Orders: 06/30/18 20:05 HEAD W/O CONTRAST [CT] Stat CHEST PORTABLE [RAD] Stat Disposition/Present on Arrival - Present on Arrival Any Indicators Present on Arrival: No History of DVT/PE: No History of Uncontrolled Diabetes: No Urinary Catheter: No History of Decub. Ulcer: No History Surgical Site Infection Following: None - Disposition Have Diagnosis and Disposition been Completed?: Yes Diagnosis: CHF (congestive heart failure) Disposition: HOSPITALIZED Disposition Time: 22:30 Patient Plan: Admission Patient Problems: Current Active Problems Problem Status Onset CHF (congestive heart failure) Acute Condition: FAIR
[2018-06-30 20:34] LABS: BASO # 0.01 K/mm3 (0.0-2.0); BASO % 0.1 % (0.0-3.0); EOS % 0.3 % (1.5-5.0); GRAN # 8.47 (1.4-6.5); GRAN % 85.1 % (50.0-68.0); HEMOGLOBIN 11.6 g/dL (14.0-18.0); LYMPH % 10.1 % (22.0-35.0); MEAN CELL VOLUME 102.1 fl (80.0-105.0); MEAN CORPUSCULAR HEMOGLOBIN 29.8 pg (25.0-35.0); MEAN CORPUSCULAR HGB CONC 29.2 g/dl (31.0-37.0); MEAN PLATELET VOLUME 10.1 fl (7.0-11.0); MONO # 0.4 (0.1-0.6); MONO % 4.4 % (1.0-6.0); RBC 3.89 10^6/uL (3.5-6.1); RED CELL DISTRIBUTION WIDTH 14.4 % (11.5-14.5)
[2018-06-30 20:50] LABS: TROPONIN I 0.06 ng/mL
[2018-06-30 20:53] LABS: INR 1.1; PARTIAL THROMBOPLASTIN TIME 29.9 Seconds (25.1-36.5); PROTHROMBIN TIME 12.6 SECONDS (9.4-12.5)
[2018-06-30 20:54] LABS: ALB/GLOB RATIO 1.1 (1.1-1.8); ALBUMIN 3.8 g/dL (3.0-4.8); ALT/SGPT 65 U/L (7-56); AST/SGOT 65 U/L (17-59); BLOOD UREA NITROGEN 42 mg/dL (7-21); GFR NON-AFRICAN AMERICAN 53
[2018-06-30 21:50] LABS: URINE BILIRUBIN NEGATIVE (NEGATIVE); URINE BLOOD NEGATIVE (NEGATIVE); URINE GLUCOSE (UA) NEGATIVE (NEGATIVE); URINE LEUKOCYTE ESTERASE NEGATIVE Leu/uL (NEGATIVE); URINE PROTEIN 30 mg/dL (<30 mg/dL); URINE UROBILINOGEN 0.2 E.U./dL (<1 E.U./dL)
[2018-06-30 21:55] LABS: URINE APPEARANCE CLEAR (CLEAR); URINE COLOR YELLOW (YELLOW)
[2018-06-30 22:54] LABS: URINE BACTERIA SMALL /hpf; URINE EPITHELIAL CELLS 0 - 2 /hpf (0-5); URINE RBC 0 - 2 /hpf (0-2); URINE WBC 0 - 2 /hpf (0-6)
[2018-07-01 03:57] VITALS: BMI 23.1
--- NOTE | 2018-07-01 09:15 | CT ---
Date of service: 06/30/2018 PROCEDURE: CT HEAD WITHOUT CONTRAST. HISTORY: AMS COMPARISON: 06/05/2018 TECHNIQUE: Axial computed tomography images were obtained through the head/brain without intravenous contrast. Supplemental Coronal and Sagittal projections created and reviewed. Radiation dose: Total exam DLP = 1177.53 mGy-cm. This CT exam was performed using one or more of the following dose reduction techniques: Automated exposure control, adjustment of the mA and/or kV according to patient size, and/or use of iterative reconstruction technique. FINDINGS: HEMORRHAGE: No intracranial hemorrhage. BRAIN: No mass effect or edema. Cortical and cerebellar atrophy, periventricular small vessel disease. VENTRICLES: Unremarkable. No hydrocephalus. CALVARIUM: Unremarkable. PARANASAL SINUSES: Unremarkable as visualized. No significant inflammatory changes. MASTOID AIR CELLS: Unremarkable as visualized. No inflammatory changes. OTHER FINDINGS: None. IMPRESSION: No acute intracranial abnormalities. No significant findings to account for the clinical presentation. No significant interval change compared to the prior examination(s). Concordant results (preliminary interpretation) provided by [facility]. Procedure Completed: 21:53. Preliminary Report: Dictated and Authenticated: 22:06 Final Interpretation: 09:02. July 01, 2018
[2018-07-01 09:28] LABS: ARTERIAL BLOOD GAS HEMOGLOBIN 11.5 g/dL (11.7-17.4); ARTERIAL BLOOD GAS O2 CAPACITY 15.8 mL/dl (16-24); ARTERIAL BLOOD GAS O2 CONTENT 15.5 ML/dl (15-23); ARTERIAL BLOOD GAS PH 7.25 (7.35-7.45); ARTERIAL BLOOD GAS TCO2 51.1 mmol.L (22-28)
[2018-07-01 09:47] LABS: ARTERIAL BLOOD GAS HCO3 47.8 mmol/L (21-28); ARTERIAL BLOOD GAS PCO2 109 mm/Hg (35-45)
--- NOTE | 2018-07-01 09:49 | RAD ---
Date of service: 06/30/2018 HISTORY: admission COMPARISON: 06/05/2018. FINDINGS: LUNGS: Persistent pulmonary vascular congestion. PLEURA: Stable bilateral pleural effusions. CARDIOVASCULAR: No atherosclerotic calcification present Cardiomegaly/stable CHF. Position/ configuration of pacemaker OSSEOUS STRUCTURES: No significant abnormalities. VISUALIZED UPPER ABDOMEN: Normal. OTHER FINDINGS: None. IMPRESSION: Stable CHF. No significant interval change compared to the prior examination(s).
[2018-07-01] MEDS ORDERED: Pantoprazole 20 mg EC Tab PO SCH (10:00)
--- NOTE | 2018-07-01 11:04 | HP ---
DATE OF EXAM: 07/01/2018 HISTORY OF PRESENT ILLNESS: An 83-year-old white male with history of pulmonary hypertension, COPD, kyphoscoliosis, congestive heart failure, CAD in the past, and history of CVA in the past. The patient was recently discharged from the hospital after having episode of exacerbation of COPD and CHF. The patient complained of increasing shortness of breath, dyspnea on exertion, and lethargy. Vague description of chest pain, but the patient is uncertain of chest pain . The patient says these symptoms started approximately 24 to 48 hours prior to admission, and he is on home oxygen. He lives with his children. SOCIAL HISTORY: He is a nonsmoker and nondrinker. He has no travel history. PAST SURGICAL HISTORY: Only positive for a stent. REVIEW OF SYSTEMS: Positive only for shortness of breath, lethargy, and weakness. The patient denies any recent falls, loss of sensation or strength in the upper or lower extremities. From neurological , the patient complains of shortness of breath. He is on supplemental oxygen, continues 24 hours a day. He denies any sputum production, hemoptysis, or chest pain. GI is negative for nausea, vomiting, or diarrhea. is negative for dysuria, hematuria, or frequency or urgency. PHYSICAL EXAMINATION: GENERAL: Shows a tall and thin white male; slightly lethargic, but easily arousable and conversant. There is no focal lateralizing defects noted neurologically. HEART: Regular sinus rhythm. Systolic chest murmur at left sternal border 1/6. He has severe kyphoscoliosis. LUNGS: Decreased breath sounds at both bases with some rales at both bases. ABDOMEN: Thin . EXTREMITIES: No cyanosis, clubbing or edema. Mild 1+ pitting edema of the feet and pretibial edema. IMPRESSION: An 83-year-old white male with multiple medical conditions, presenting with exacerbation of chronic obstructive pulmonary disease and congestive heart failure with BNP over 8000 and possible hypercapnia. Ramy Michael MD
[2018-07-01] MEDS: Metoprolol Succinate 25 mg XL Tab PO SCH (11:15)
[2018-07-01] MEDS: Cholecalciferol 1,000 INTLU TAB PO SCH (11:16)
[2018-07-01 11:57] LABS: ALB/GLOB RATIO 1.1 (1.1-1.8); ALBUMIN 3.9 g/dL (3.0-4.8)
[2018-07-01 12:03] LABS: TROPONIN I 0.07 ng/mL
--- NOTE | 2018-07-01 12:15 | CP.PCM.CON ---
History of Present Illness - History of Present Illness History of Present Illness: MICU CONSULT NOTE REASON FOR CONSULT: HYPERCAPNIA HPI: Patient is 83yo male with PMHx CAD s/p CABG, COPD on home O2 3LNC, CHF, MVP s/p surgery, PPM, presented to the hospital with drooling, and Pulse Ox 60%Initial workup showed negative CTH for acute findings. This morning patient had ABG, 7.25/109/51, patient AAOx2, NAD, following commands on BIPAP. Pt denies any major complaints. PMHx as above PSHx CABG Meds as per EMR Allergies NKDA FHx NC Social Denies smoking, etoh, drug use Review of Systems - Review of Systems Review of Systems: as per HPI Past Patient History - Infectious Disease Hx of Infectious Diseases: None - Tetanus Immunizations Tetanus Immunization: Unknown - Past Social History Smoking Status: Former Smoker - CARDIAC Hx Cardiac Disorders: Yes Hx Congestive Heart Failure: Yes Hx Hypercholesterolemia: Yes Hx Hypertension: Yes Hx Pacemaker: Yes Hx Peripheral Edema: Yes Hx Peripheral Vascular Disease: Yes - PULMONARY Hx Respiratory Disorders: Yes (SMOKED CIGARETTES H/O PPD) Hx Chronic Obstructive Pulmonary Disease (COPD): Yes (O2 dependent) Hx Pneumonia: Yes (2x since ) - NEUROLOGICAL HX Cerebrovascular Accident: Yes - HEENT Hx HEENT Problems: No - ENDOCRINE/METABOLIC Hx Endocrine Disorders: No - HEMATOLOGICAL/ONCOLOGICAL Hx Blood Disorders: No - INTEGUMENTARY Hx Dermatological Problems: No - MUSCULOSKELETAL/RHEUMATOLOGICAL Hx Falls: Yes - GASTROINTESTINAL Hx Gastrointestinal Disorders: Yes (HERNIORHAPPY,GERD,DIVERTICULITIS,GI BLEED,CONSTIPATION) - GENITOURINARY/GYNECOLOGICAL Hx Genitourinary Disorders: Yes (URINARY FREQUENCY) - PSYCHIATRIC Hx Psychophysiologic Disorder: Yes (ETOH -DRINKS SOCIALLY,SMOPKED PPD H/O) Hx Depression: Yes Hx Emotional Abuse: No Hx Physical Abuse: No Hx Substance Use: No - SURGICAL HISTORY Hx Cardiac Catheterization: Yes Hx Open Heart Surgery: Yes - ANESTHESIA Hx Anesthesia: No Meds Allergies/Adverse Reactions: Allergies Allergy/AdvReac Type Severity Reaction Status Date / Time No Known Allergies Allergy Verified 06/30/18 19:57 - Medications Medications: Current Medications Aspirin (Ecotrin) 81 mg PO DAILY [facility] Last Admin: 07/01/18 11:14 Dose: Not Given Atorvastatin Calcium (Lipitor) 20 mg PO [facility] Cholecalciferol (Vitamin D) 1,000 intlu PO DAILY [facility] Last Admin: 07/01/18 11:16 Dose: Not Given Furosemide (Lasix) 20 mg PO DAILY [facility] Last Admin: 07/01/18 11:14 Dose: Not Given Magnesium Oxide (Mag-Ox) 400 mg PO BID [facility] Methylprednisolone (Solu-Medrol) 40 mg IVP Q8H [facility] Metoprolol Succinate (Toprol Xl) 25 mg PO DAILY [facility] Last Admin: 07/01/18 11:15 Dose: Not Given Pantoprazole Sodium (Protonix Ec Tab) 20 mg PO DAILY [facility] Paroxetine HCl (Paxil) 20 mg PO DAILY [facility] Physical Exam - Constitutional Appears: Non-toxic, No Acute Distress - Head Exam Head Exam: NORMAL INSPECTION - Eye Exam Eye Exam: Normal appearance - ENT Exam ENT Exam: Mucous Membranes Moist - Respiratory Exam Respiratory Exam: Clear to Auscultation Bilateral, NORMAL BREATHING PATTERN - Cardiovascular Exam Cardiovascular Exam: REGULAR RHYTHM, +S1, +S2 - GI/Abdominal Exam GI & Abdominal Exam: Normal Bowel Sounds, Soft - Extremities Exam Extremities exam: Positive for: normal inspection - Neurological Exam Neurological exam: Alert - Psychiatric Exam Psychiatric exam: Normal Affect - Skin Skin Exam: Normal Color, Warm Results - Vital Signs Recent Vital Signs: Last Vital Signs Temp 97.9 F 07/01/18 06:00 Pulse 80 07/01/18 10:50 Resp 20 07/01/18 06:00 BP 150/62 07/01/18 06:00 Pulse Ox 95 07/01/18 06:00 - Labs Result Diagrams: 06/30/18 20:24 07/01/18 11:30 Labs: Laboratory Results - last 24 hr 06/30/18 06/30/18 06/30/18 20:24 20:24 20:24 WBC 10.0 RBC 3.89 Hgb 11.6 L Hct 39.7 L MCV 102.1 MCH 29.8 MCHC 29.2 L RDW 14.4 Plt Count 252 MPV 10.1 Gran % 85.1 H Lymph % (Auto) 10.1 L Gaines % (Auto) 4.4 Eos % (Auto) 0.3 L Baso % (Auto) 0.1 Gran # 8.47 H Lymph # (Auto) 1.0 L Gaines # (Auto) 0.4 Eos # (Auto) 0.0 Baso # (Auto) 0.01 PT 12.6 H INR 1.10 APTT 29.9 pCO2 pO2 HCO3 ABG pH ABG Total CO2 ABG O2 Saturation ABG O2 Content ABG Base Excess ABG Hemoglobin ABG Carboxyhemoglobin POC ABG HHb (Measured) ABG Methemoglobin ABG O2 Capacity Hgb O2 Saturation FiO2 Sodium 139 Potassium 4.4 Chloride 93 L Carbon Dioxide 43 H Anion Gap 7 L BUN 42 H Creatinine 1.3 Est GFR ( Amer) > 60 Est GFR (Non-Af Amer) 53 Random Glucose 115 H Calcium 10.0 Phosphorus 4.9 H Magnesium 2.2 Total Bilirubin 0.8 AST 65 H D ALT 65 H Alkaline Phosphatase 96 Lactate Dehydrogenase 856 H Total Creatine Kinase 41 Troponin I 0.06 D NT-Pro-B Natriuret Pep Total Protein 7.3 Albumin 3.8 Globulin 3.5 Albumin/Globulin Ratio 1.1 Urine Color Urine Appearance Urine pH Ur Specific Lankin Urine Protein Urine Glucose (UA) Urine Ketones Urine Blood Urine Nitrate Urine Bilirubin Urine Urobilinogen Ur Leukocyte Esterase Urine RBC Urine WBC Ur Epithelial Cells Urine Bacteria 06/30/18 06/30/18 07/01/18 20:24 21:40 09:15 WBC RBC Hgb Hct MCV MCH MCHC RDW Plt Count MPV Gran % Lymph % (Auto) Gaines % (Auto) Eos % (Auto) Baso % (Auto) Gran # Lymph # (Auto) Gaines # (Auto) Eos # (Auto) Baso # (Auto) PT INR APTT pCO2 109 H* pO2 96.0 HCO3 47.8 H* ABG pH 7.25 L ABG Total CO2 51.1 H ABG O2 Saturation 98.0 ABG O2 Content 15.5 ABG Base Excess 16.3 H ABG Hemoglobin 11.5 L ABG Carboxyhemoglobin 2.3 H POC ABG HHb (Measured) 1.9 ABG Methemoglobin 0.7 ABG O2 Capacity 15.8 L Hgb O2 Saturation 95.1 FiO2 32.0 Sodium Potassium Chloride Carbon Dioxide Anion Gap BUN Creatinine Est GFR ( Amer) Est GFR (Non-Af Amer) Random Glucose Calcium Phosphorus Magnesium Total Bilirubin AST ALT Alkaline Phosphatase Lactate Dehydrogenase Total Creatine Kinase Troponin I NT-Pro-B Natriuret Pep 8250 H Total Protein Albumin Globulin Albumin/Globulin Ratio Urine Color Yellow Urine Appearance Clear Urine pH 6.0 Ur Specific Lankin >= 1.030 Urine Protein 30 H Urine Glucose (UA) Negative Urine Ketones Negative Urine Blood Negative Urine Nitrate Negative Urine Bilirubin Negative Urine Urobilinogen 0.2 Ur Leukocyte Esterase Negative Urine RBC 0 - 2 Urine WBC 0 - 2 Ur Epithelial Cells 0 - 2 Urine Bacteria Small 07/01/18 11:30 WBC RBC Hgb Hct MCV MCH MCHC RDW Plt Count MPV Gran % Lymph % (Auto) Gaines % (Auto) Eos % (Auto) Baso % (Auto) Gran # Lymph # (Auto) Gaines # (Auto) Eos # (Auto) Baso # (Auto) PT INR APTT pCO2 pO2 HCO3 ABG pH ABG Total CO2 ABG O2 Saturation ABG O2 Content ABG Base Excess ABG Hemoglobin ABG Carboxyhemoglobin POC ABG HHb (Measured) ABG Methemoglobin ABG O2 Capacity Hgb O2 Saturation FiO2 Sodium 141 Potassium 4.5 Chloride 90 L Carbon Dioxide 46 H Anion Gap 10 BUN 46 H Creatinine 1.4 Est GFR ( Amer) 59 Est GFR (Non-Af Amer) 49 Random Glucose 220 H Calcium 10.0 Phosphorus Magnesium Total Bilirubin 0.8 AST 63 H ALT 74 H Alkaline Phosphatase 97 Lactate Dehydrogenase 776 H Total Creatine Kinase 34 L Troponin I 0.07 NT-Pro-B Natriuret Pep 9110 H Total Protein 7.4 Albumin 3.9 Globulin 3.5 Albumin/Globulin Ratio 1.1 Urine Color Urine Appearance Urine pH Ur Specific Lank[place] Urine Protein Urine Glucose (UA) Urine Ketones Urine Blood Urine Nitrate Urine Bilirubin Urine Urobilinogen Ur Leukocyte Esterase Urine RBC Urine WBC Ur Epithelial Cells Urine Bacteria - Imaging and Cardiology Chest x-ray Status: Image reviewed by me, Report reviewed by me Assessment & Plan - Assessment and Plan (Free Text) Assessment: Patient is 83yo male with chronic resp acidosis, hypercapnia Resp Acidosis, chronic compensated CAD s/p CABG COPD on home O2 HTN - currently afebrile, HD stable, comfortable in NAD, AAOx2, following commands - ABG with CHRONIC resp acidosis, compensated, patient awake, alert, oriented, no need for intubation at this time, sat 100% - CXR clear Recommend: - titrate off BIPAP, supp o2 as needed, goal sat 90%, duonebs PRN - panculture, UCx, BCx, check UA, hold off abx for now - Solumedrol 40mg IV TID - BP control - ASA - IVF - GI ppx - DVT ppx, HSQ - PT/OT - Transfer to MICU
--- NOTE | 2018-07-01 13:42 | RAD ---
Date of service: 07/01/2018 HISTORY: r/o chf COMPARISON: June 30, 2018. FINDINGS: LUNGS: Stable pulmonary vascular congestion. PLEURA: Stable bilateral pleural effusions. CARDIOVASCULAR: No atherosclerotic calcification present Cardiomegaly. Position/ configuration of pacemaker Satisfactory. OSSEOUS STRUCTURES: No significant abnormalities. VISUALIZED UPPER ABDOMEN: Normal. OTHER FINDINGS: None. IMPRESSION: Stable CHF.
[2018-07-01] MEDS: MethylPREDNISolone 40 mg Vial IVP SCH (16:05)
[2018-07-01] MEDS: Magnesium Oxide 400 mg Tab UD PO SCH ×2 (16:05→19:43)
--- NOTE | 2018-07-01 16:16 | CON ---
DATE: 07/01/2018 PULMONARY CONSULTATION COMPLAINT: Mr. Lane is 83 years old. He presented to the emergency room with acute onset of shortness of breath. Past history of congestive heart failure, chronic obstructive pulmonary disease and mitral valve replacement. The patient also has a pacemaker. The patient was found at home with a low pulse ox, was brought to the emergency room and was admitted to telemetry earlier this morning. The patient had obtundation. A blood gas showed a pCO2 of 109 and the patient was started on BiPAP. The patient remains obtunded on telemetry. I have discussed the case immediately with the nurse and the Intensive Care Unit team. The patient will be transferred to the Intensive Care Unit for further evaluation and treatment. The patient's status is currently unknown. The etiology appears to be a combination of pulmonary vascular congestion (congestive heart failure) and possible neurologic dysfunction, COPD cannot be excluded either. The patient is on home oxygen. He was awake and alert in the emergency room when he arrived. He did not complain of chest pain at that time. No other history is available at this present time. We were called by Dr. Michael to evaluate this patient on telemetry just a few moments ago. PAST HISTORY: As discussed above. History of congestive heart failure, mitral valve disease, hypertension, long-time smoker of cigarettes, history of pneumonia, GERD, diverticulitis. SOCIAL HISTORY: The patient drinks socially and smoked for many years. No occupational or travel history. FAMILY HISTORY: Unknown. ALLERGIES: NO KNOWN ALLERGIES. HOME MEDICATION: Paxil. Additional medications are not noted on the patient's record. REVIEW OF SYSTEMS: Gleaned from the chart, appears to all be normal. This is unlikely. The patient is unable to give me further information at this time and we will discuss with family members when they arrive. All other systems negative. PHYSICAL EXAMINATION: GENERAL: The patient is obtunded, on telemetry with BiPAP in place. VITAL SIGNS: Blood pressure 160/70, pulse ox of 90, heart rate of 100. HEENT: Normocephalic, atraumatic. Pupils PERRLA. EOMs unable to evaluate. Conjunctivae normal. NECK: Supple. Positive jugular venous distention. CHEST: Rales throughout. No wheezes appreciated. Global decrease in breath sounds. HEART: Regular rhythm, tachycardic, S1, S2. Soft systolic ejection murmur at lower left sternal border. ABDOMEN: Soft. Bowel sounds normoactive without mass, guarding, rebound or organomegaly. EXTREMITIES: Reveal no cyanosis or edema. NEUROLOGIC: Obtundation. No focal findings. SKIN: Moist. No rash. LABORATORY DATA: Chest x-ray, significant pulmonary vascular congestion. White count 10,000, hemoglobin 11.6, hematocrit 39.7, PT of 12.6. Blood gas, pH 7.25, pCO2 109, pO2 96. Chemistries, sodium 139, potassium 4.4, chloride 93, carbon dioxide 43, BUN 42, creatinine 1.3, AST 65, ALT 65, LDH 856. BNP 8250. Urine, protein. EKG, sinus tachycardia, nonspecific ST-T wave changes. CLINICAL IMPRESSION: 1. Respiratory insufficiency/respiratory failure. 2. Pulmonary vascular congestion - pulmonary edema. 3. Questionable neurologic dysfunction. 4. Chronic obstructive pulmonary disease. PLAN: The patient must be transferred to the Intensive Care Unit immediately. Followup blood gas on BiPAP is pending. The patient needs further diuresis. We will decide if the patient needs to be intubated based on the followup blood gas, which is pending. Continue, the patient requires vigorous inhaled bronchodilators, corticosteroids, etc. Underlying infection cannot be excluded. BNP is of significance; must rule out myocardial infarction. Case discussed with the sander and buffer on-call. The patient will be followed by the ICU team. We will follow closely with you as required. Thank you for the opportunity to see this patient and intervene. Mike Velazquez MD MTDD
[2018-07-01 16:29] LABS: BASO # 0.01 K/mm3 (0.0-2.0); BASO % 0.1 % (0.0-3.0); EOS % 0.2 % (1.5-5.0); GRAN # 7.68 (1.4-6.5); GRAN % 82.8 % (50.0-68.0); HEMOGLOBIN 11.3 g/dL (14.0-18.0); LYMPH # 0.7 (1.2-3.4); LYMPH % 7.2 % (22.0-35.0); MEAN CELL VOLUME 102.1 fl (80.0-105.0); MEAN CORPUSCULAR HEMOGLOBIN 29.6 pg (25.0-35.0); MONO # 0.9 (0.1-0.6); MONO % 9.7 % (1.0-6.0); RBC 3.82 10^6/uL (3.5-6.1); RED CELL DISTRIBUTION WIDTH 14.2 % (11.5-14.5); WHITE BLOOD COUNT 9.3 10^3/uL (4.5-11.0)
[2018-07-01 17:01] LABS: ALB/GLOB RATIO 1.2 (1.1-1.8); ALBUMIN 3.7 g/dL (3.0-4.8); ALT/SGPT 69 U/L (7-56); AST/SGOT 54 U/L (17-59); BLOOD UREA NITROGEN 45 mg/dL (7-21); GFR NON-AFRICAN AMERICAN 58
[2018-07-01 17:05] LABS: CALCIUM 9.8 mg/dL (8.4-10.5)
--- NOTE | 2018-07-01 20:29 | CARD ---
APPROVED REPORT Date of service: 07/01/2018 EKG Measurement Heart [id number] <Conclusion> Electronic ventricular pacemaker
--- NOTE | 2018-07-01 20:47 | CARD ---
APPROVED REPORT Date of service: 06/30/2018 EKG Measurement Heart [id number] <Conclusion> Electronic ventricular pacemaker
[2018-07-02] MEDS: MethylPREDNISolone 40 mg Vial IVP SCH ×3 (03:34→18:00)
[2018-07-02 05:06] LABS: ARTERIAL BLOOD GAS HEMOGLOBIN 11.4 g/dL (11.7-17.4); ARTERIAL BLOOD GAS O2 CAPACITY 15.6 mL/dl (16-24); ARTERIAL BLOOD GAS O2 CONTENT 15.3 ML/dl (15-23); ARTERIAL BLOOD GAS O2 SAT 97.8 % (95-98); ARTERIAL BLOOD GAS TCO2 56.4 mmol.L (22-28)
[2018-07-02 05:15] LABS: ARTERIAL BLOOD GAS HCO3 53.1 mmol/L (21-28); ARTERIAL BLOOD GAS PCO2 108 mm/Hg (35-45)
[2018-07-02 05:49] LABS: BASO # 0.01 K/mm3 (0.0-2.0); BASO % 0.1 % (0.0-3.0); EOS % 0.2 % (1.5-5.0); GRAN % 89.6 % (50.0-68.0); HEMOGLOBIN 11.7 g/dL (14.0-18.0); LYMPH # 0.5 (1.2-3.4); LYMPH % 4.6 % (22.0-35.0); MEAN CELL VOLUME 103.8 fl (80.0-105.0); MEAN CORPUSCULAR HEMOGLOBIN 29.4 pg (25.0-35.0); MEAN CORPUSCULAR HGB CONC 28.3 g/dl (31.0-37.0); MONO # 0.6 (0.1-0.6); MONO % 5.5 % (1.0-6.0); PLATELET COUNT 240 10^3/uL (120.0-450.0); RBC 3.98 10^6/uL (3.5-6.1); RED CELL DISTRIBUTION WIDTH 14.4 % (11.5-14.5); WHITE BLOOD COUNT 10.4 10^3/uL (4.5-11.0)
[2018-07-02 06:21] LABS: ALB/GLOB RATIO 1.1 (1.1-1.8); ALBUMIN 3.7 g/dL (3.0-4.8); ALT/SGPT 75 U/L (7-56); AST/SGOT 64 U/L (17-59); BLOOD UREA NITROGEN 43 mg/dL (7-21); GFR NON-AFRICAN AMERICAN 58
[2018-07-02] MEDS ORDERED: Dextrose 50% SYRINGE Inj (50 ml) IVP ONE (07:02)
[2018-07-02] MEDS ORDERED: Insulin Regular 1 UNITS/0.01 ML ML IVP ONE (07:03)
[2018-07-02] MEDS ORDERED: Albuterol 0.5% Inhal Sol (2.5 mg/0.5 ml) UD IH ONE (07:03)
[2018-07-02] MEDS ORDERED: Sodium Chloride 0.9% 1,000 ML IV STA (07:17)
[2018-07-02] MEDS ORDERED: Sod Polystyrene Sulf 15 gm/60 ml Susp PO ONE (07:17)
[2018-07-02] MEDS: Pantoprazole 20 mg EC Tab PO SCH (07:42)
[2018-07-02 08:35] LABS: BLOOD UREA NITROGEN 43 mg/dL (7-21); CALCIUM 9.9 mg/dL (8.4-10.5); GFR NON-AFRICAN AMERICAN > 60
[2018-07-02] MEDS: Magnesium Oxide 400 mg Tab UD PO SCH (09:46)
[2018-07-02] MEDS: Cholecalciferol 1,000 INTLU TAB PO SCH (09:47)
[2018-07-02] MEDS: Metoprolol Succinate 25 mg XL Tab PO SCH (09:54)
--- NOTE | 2018-07-02 10:25 | RAD ---
Date of service: 07/02/2018 HISTORY: COPD COMPARISON: 06/30/2018, 07/01/2018 serial chest radiographs FINDINGS: LUNGS: Stable pulmonary vascular congestion. PLEURA: Pleural effusions are inseparable from pulmonary edema/congestion. CARDIOVASCULAR: No atherosclerotic calcification present Stable cardiomegaly OSSEOUS STRUCTURES: No significant abnormalities. VISUALIZED UPPER ABDOMEN: Normal. OTHER FINDINGS: None. IMPRESSION: Stable and presumed cardiogenic pulmonary edema. No new/acute findings or interval changes.
[2018-07-02] MEDS ORDERED: MethylPREDNISolone 40 mg Vial IVP SCH (10:30)
[2018-07-02 11:24] LABS: ANISOCYTOSIS 1+; HYPOCHROMIA 1+; LYMPHOCYTE 5 % (22.0-35.0); MONOCYTE 3 % (1.0-6.0); NEUTROPHIL 92 % (50.0-70.0); OVALOCYTES SLIGHT; PLATELET ESTIMATE NORMAL (NORMAL); POIKILOCYTOSIS SLIGHT; TEAR DROP CELLS SLIGHT
[2018-07-02 11:25] LABS: STOMATOCYTE SLIGHT
--- NOTE | 2018-07-02 11:34 | CP.PCM.PN ---
Subjective - Date & Time of Evaluation Date of Evaluation: 07/02/18 Time of Evaluation: 09:00 - Subjective Subjective: Pt seen and examined, remains on BIPAP, comfortable, denies SOB, CP. Objective - Vital Signs/Intake and Output Vital Signs (last 24 hours): Temp Pulse Resp BP Pulse Ox 97.9 F 62 31 H 147/47 L 93 L 07/01/18 12:55 07/02/18 09:54 07/02/18 03:40 07/02/18 09:54 07/02/18 03:40 Intake and Output: 07/02/18 07/02/18 06:59 18:59 Intake Total 250 Output Total 200 Balance 50 - Medications Medications: Current Medications Amlodipine Besylate (Norvasc) 10 mg PO DAILY [facility] Last Admin: 07/02/18 09:49 Dose: 10 mg Aspirin (Ecotrin) 81 mg PO DAILY [facility] Last Admin: 07/02/18 09:47 Dose: 81 mg Atorvastatin Calcium (Lipitor) 20 mg PO HS [facility] Last Admin: 07/01/18 21:48 Dose: 20 mg Cholecalciferol (Vitamin D) 1,000 intlu PO DAILY [facility] Last Admin: 07/02/18 09:47 Dose: 1,000 intlu Furosemide (Lasix) 40 mg IV BID [facility] Last Admin: 07/02/18 09:54 Dose: 40 mg Methylprednisolone (Solu-Medrol) 40 mg IVP Q12H [facility] Metoprolol Succinate (Toprol Xl) 25 mg PO DAILY [facility] Last Admin: 07/02/18 09:54 Dose: Not Given Pantoprazole Sodium (Protonix Ec Tab) 20 mg PO 0600 [facility] Last Admin: 07/02/18 07:42 Dose: 20 mg Paroxetine HCl (Paxil) 20 mg PO DAILY [facility] Last Admin: 07/02/18 09:47 Dose: 20 mg - Labs Labs: 07/02/18 05:00 07/02/18 08:00 PT 12.6 SECONDS (9.4-12.5) H 06/30/18 20:24 INR 1.10 06/30/18 20:24 APTT 29.9 Seconds (25.1-36.5) 06/30/18 20:24 - Constitutional Appears: Non-toxic, No Acute Distress - Head Exam Head Exam: NORMAL INSPECTION - Eye Exam Eye Exam: Normal appearance - ENT Exam ENT Exam: Mucous Membranes Moist - Respiratory Exam Respiratory Exam: Clear to Ausculation Bilateral, NORMAL BREATHING PATTERN - Cardiovascular Exam Cardiovascular Exam: REGULAR RHYTHM, +S1, +S2 - GI/Abdominal Exam GI & Abdominal Exam: Soft, Normal Bowel Sounds - Extremities Exam Extremities Exam: Normal Inspection - Neurological Exam Neurological Exam: Alert, Awake - Skin Skin Exam: Normal Color, Warm Assessment and Plan - Assessment and Plan (Free Text) Assessment: Patient is 83yo male with chronic resp acidosis, hypercapnia Resp Acidosis, chronic compensated CAD s/p CABG COPD on home O2 HTN - currently afebrile, HD stable, comfortable in NAD, AAOx2, requesting breakfast - ABG with CHRONIC resp acidosis, compensated, patient awake, alert, oriented, no need for intubation at this time, sat 95% - ABG noted today with improvement in pH, 7.30/108/54, would continue with BIPAP for now, if pCO2 is further lowered would run the risk of alkalosis, and deleterious effects Recommend: - cont with BIPAP, supp o2 as needed, goal sat 90%, duonebs PRN - panculture, UCx, BCx, check UA, hold off abx for now - follow up Pulmonary - Solumedrol 40mg IV TID - BP control - ASA - GI ppx - DVT ppx, HSQ - PT/OT - Monitor on MICU
--- NOTE | 2018-07-02 11:59 | CON ---
DATE: 07/02/2018 REQUESTING PHYSICIAN: Dr. Michael REASON FOR CONSULTATION: Dyspnea. HISTORY OF PRESENT ILLNESS: This is an 83-year-old man well known to me with a history of mitral valve disease status post mitral valve replacement as well as a history of coronary artery disease with status post remote [place] and PCI as well as a permanent pacemaker, who has a history of severe restrictive lung disease and COPD. He was brought to the emergency room after being found weak and drooling at home. His pulse oximeter reportedly read as 60%. Apparently in the emergency room, he was alert and oriented; however; upon admission to the floor, he was noted to be somewhat somnolent and had a severe hypercarbia. He was transferred to the ICU and placed on BiPAP mask. He is currently awake and communicative. He denies any chest pain. PAST MEDICAL HISTORY: Notable for the problems mentioned above. He underwent aortic valve replacement many years ago for severe aortic stenosis. He has severe kyphoscoliosis with restrictive lung disease. He suffered a myocardial infarction several years ago and underwent PCI with his RCA. He has had a permanent pacemaker placed for complete heart block. He also has a history of hypertension, hyperlipidemia, prior history of cerebrovascular accident as well as mild cognitive dysfunction. CURRENT MEDICATIONS: Include Ecotrin, Lasix, Lipitor, magnesium oxide, Norvasc 10 mg daily, Paxil 20 mg daily, Protonix 20 mg daily, Solu-Medrol, Toprol-XL 25 mg daily. His overall medications are currently being held. ALLERGIES: NONE. SOCIAL HISTORY: He does not smoke or drink. He lives at home. His ambulation is extremely limited because of his kyphoscoliosis. He usually uses a walker at this point in time. FAMILY HISTORY: Unremarkable for premature heart disease. REVIEW OF SYSTEMS: Ten point review of systems is otherwise unremarkable. PHYSICAL EXAMINATION GENERAL: He is a elderly man who is lying in the CCU. He appears comfortable, but he is restless with respect to not tolerating his BiPAP mask. He denies chest pain. He is awake and alert. VITAL SIGNS: His blood pressure is 148/72 with a pulse is 60 with ventricular pacing, respirations are 16. He is currently afebrile. HEENT: BiPAP mask is in place. NECK: JVD is present. CHEST: Bilateral scattered rhonchi heard. HEART: PMI displaced laterally, systolic murmur is present in the left sternal border. ABDOMEN: Soft, nontender with normoactive bowel sounds. EXTREMITIES: 1+ leg edema with erythema on both lower extremities present. SKIN: Warm and dry. PSYCHIATRIC: Affect appears fairly normal. NEUROLOGIC: Exam is grossly unremarkable. DIAGNOSTIC DATA: Potassium is 5.7. BUN and creatinine 43 and 1.2. White count 10.4, hemoglobin and hematocrit 11.7 and 41.3 with a platelet count of 240,000. Arterial blood gas yesterday was pH 7.25, pCO2 of 109 with a PO2 of 96. Repeat this morning reveals pH 7.30, pCO2 of 108 and PO2 of 86. His bicarbonate is 50. AST and ALT are elevated at 64 and 75. Electrocardiogram reveals a ventricular paced rhythm. Chest x-ray reveals marked kyphoscoliosis. Pacemaker implant is in place. Post sternotomy changes are noted. Mild pulmonary vascular congestion appears present. IMPRESSION: 1. Respiratory failure, likely a combination of decompensating congestive heart failure as well as severe restrictive lung disease. 2. Chronic respiratory acidosis with superimposed acute component. 3. Status post aortic valve replacement. 4. Coronary artery disease status post remote percutaneous coronary intervention and rest of the problems as noted. RECOMMENDATIONS: Current respiratory support to continue. An echocardiogram will be obtained. IV Lasix will be administered. Further recommendations will be made based upon his clinical course and response to above intervention. Thank you for this consultation. We would be happy to follow along through his hospital course. Chinedu Friedman MD
[2018-07-02 13:53] LABS: BLOOD UREA NITROGEN 45 mg/dL (7-21); CALCIUM 9.5 mg/dL (8.4-10.5); GFR NON-AFRICAN AMERICAN 53
--- NOTE | 2018-07-02 14:59 | PN ---
DATE: 07/02/2018 SUBJECTIVE: An 83-year-old white male who is transferred yesterday from at the floor to Intensive Care Unit bed 4. The patient was seen today in ICU bed 4. The patient has severe CO2 retention with CO2 narcosis yesterday, exacerbation of COPD, congestive heart failure, BNP over 9000. The patient is on BIPAP. He is more awake and alert; however, he still has a elevated CO2, bicarb is 45. Kidney function is stable. OBJECTIVE: VITAL SIGNS: The patient is afebrile. Vital signs are stable. Blood pressure 147/47. CHEST: Shows stereo , he has decreased breath sounds bilaterally. EXTREMITIES: No cyanosis, clubbing or edema. HEART: Reveal sinus rhythm. IMPRESSION: This is an 83-year-old white male with history of mitral valve replacement, congestive heart failure, acute systolic on top of chronic systolic diastolic, pulmonary hypertension, severe kyphoscoliosis, restrictive lung disease and hypercapnia and CO2 narcosis. Ramy Michael MD
--- NOTE | 2018-07-03 00:10 | PN ---
DATE: 07/02/2018 PULMONARY PROGRESS NOTE SUBJECTIVE: The patient remains on BiPAP in the intensive care unit. He still has rather significant congestive heart failure which on chest x-ray today does not look significantly improved. The arterial blood gas this morning continues to show a CO2 retention with respiratory acidosis with metabolic compensation. The patient remains awake. Unable to assess his alertness at this time. The patient remains in the intensive care unit where he is being seen by mud mixer helper and Cardiology. OBJECTIVE: VITAL SIGNS: Remain stable with a blood pressure of 160/70, pulse is 80, respiratory rate of 18. HEENT: Normocephalic, atraumatic. NECK: Supple. Positive jugular venous distention. No bruit. CHEST: Bilateral rales throughout. No wheezing appreciated. HEART: Regular rhythm, tachycardic. S1 and S2. Persistent systolic ejection murmur. ABDOMEN: Soft. Bowel sounds normoactive without mass, guarding, rebound or organomegaly. EXTREMITIES: Reveal no clubbing, cyanosis or edema. There is no Homans' sign. NEUROLOGIC: The patient is somewhat awake and alert at this time. No focal findings noted. SKIN: Dry; intact LABORATORY STUDIES: ABG today as stated above with a persistent elevated pCO2; pH is 7.30, better than yesterday of 7.25. Chest x-ray: Persistent pulmonary infiltrates consistent with pulmonary vascular congestion. Additional laboratory studies today continue to show white count of 10,000, hemoglobin of 11.7. Chemistries show potassium of 5.4 with a sugar of 116, down from 220. CLINICAL IMPRESSION: 1. Persistent respiratory acidosis from carbon dioxide retention. 2. Pulmonary vascular congestion/pulmonary edema, not significantly improved. 3. Questionable neurologic dysfunction. 4. Chronic obstructive pulmonary disease, on treatment. PLAN: I have discussed the case with Dr. Ward, the mud mixer helper on-call. I have registered my concern about persistent elevated pCO2 and the need for further ventilation. He will review and advise more vigorous evaluation of cardiac function with further diuresis of the pulmonary vascular congestion. Overall, the condition remains little improved since yesterday. Further intensive evaluation is in order. Discussed with ICU staff. Will need further intervention. The prognosis remains guarded. Thank you for allowing us to participate in the care of this patient. Mike Velazquez MD [facility] # [id number]
[2018-07-03] MEDS: MethylPREDNISolone 40 mg Vial IVP SCH ×3 (03:50→21:30)
[2018-07-03 05:26] LABS: ARTERIAL BLOOD GAS HEMOGLOBIN 10.7 g/dL (11.7-17.4); ARTERIAL BLOOD GAS O2 CAPACITY 14.7 mL/dl (16-24); ARTERIAL BLOOD GAS O2 CONTENT 14.5 ML/dl (15-23); ARTERIAL BLOOD GAS O2 SAT 98.7 % (95-98); ARTERIAL BLOOD GAS PH 7.39 (7.35-7.45); ARTERIAL BLOOD GAS TCO2 55.4 mmol.L (22-28)
[2018-07-03 05:33] LABS: ARTERIAL BLOOD GAS HCO3 52.7 mmol/L (21-28); ARTERIAL BLOOD GAS PCO2 87 mm/Hg (35-45)
[2018-07-03] MEDS: Pantoprazole 20 mg EC Tab PO SCH (05:41)
[2018-07-03 06:36] LABS: GRAN # 10.58 (1.4-6.5); GRAN % 92.3 % (50.0-68.0); HEMOGLOBIN 10.6 g/dL (14.0-18.0); LYMPH # 0.5 (1.2-3.4); LYMPH % 4.5 % (22.0-35.0); MEAN CELL VOLUME 102.7 fl (80.0-105.0); MEAN CORPUSCULAR HEMOGLOBIN 28.9 pg (25.0-35.0); MEAN CORPUSCULAR HGB CONC 28.1 g/dl (31.0-37.0); MEAN PLATELET VOLUME 9.7 fl (7.0-11.0); MONO # 0.4 (0.1-0.6); MONO % 3.2 % (1.0-6.0); RBC 3.67 10^6/uL (3.5-6.1); RED CELL DISTRIBUTION WIDTH 14.2 % (11.5-14.5); WHITE BLOOD COUNT 11.5 10^3/uL (4.5-11.0)
[2018-07-03 07:14] LABS: ALB/GLOB RATIO 1.1 (1.1-1.8); ALBUMIN 3.4 g/dL (3.0-4.8); ALT/SGPT 62 U/L (7-56); AST/SGOT 52 U/L (17-59); BLOOD UREA NITROGEN 51 mg/dL (7-21); CALCIUM 9.7 mg/dL (8.4-10.5); GFR NON-AFRICAN AMERICAN 53
--- NOTE | 2018-07-03 09:01 | CP.PCM.PN ---
Objective - Vital Signs/Intake and Output Vital Signs (last 24 hours): Temp Pulse Resp BP Pulse Ox 97.8 F 61 36 H 130/60 100 07/03/18 04:00 07/03/18 07:40 07/03/18 04:40 07/03/18 04:30 07/03/18 04:40 Intake and Output: 07/03/18 07/03/18 06:59 18:59 Intake Total 240 Output Total 150 Balance 90 - Medications Medications: Current Medications Amlodipine Besylate (Norvasc) 10 mg PO DAILY [facility] Last Admin: 07/02/18 09:49 Dose: 10 mg Arformoterol Tartrate (Brovana) 15 mcg IH [id number] [facility] Aspirin (Ecotrin) 81 mg PO DAILY [facility] Last Admin: 07/02/18 09:47 Dose: 81 mg Atorvastatin Calcium (Lipitor) 20 mg PO HS [facility] Last Admin: 07/02/18 21:36 Dose: 20 mg Budesonide (Pulmicort Respules) 0.5 mg IH [id number] [facility] Cholecalciferol (Vitamin D) 1,000 intlu PO DAILY [facility] Last Admin: 07/02/18 09:47 Dose: 1,000 intlu Furosemide (Lasix) 80 mg IV BID [facility] Methylprednisolone (Solu-Medrol) 40 mg IVP Q8H [facility] Last Admin: 07/03/18 03:50 Dose: 40 mg Metolazone (Zaroxolyn) 5 mg PO ONCE ONE Stop: 07/03/18 09:31 Metoprolol Succinate (Toprol Xl) 25 mg PO DAILY [facility] Last Admin: 07/02/18 09:54 Dose: Not Given Pantoprazole Sodium (Protonix Ec Tab) 20 mg PO 0600 [facility] Last Admin: 07/03/18 05:41 Dose: 20 mg Paroxetine HCl (Paxil) 20 mg PO DAILY [facility] Last Admin: 07/02/18 09:47 Dose: 20 mg - Labs Labs: 07/03/18 05:40 07/03/18 05:40 PT 12.6 SECONDS (9.4-12.5) H 06/30/18 20:24 INR 1.10 06/30/18 20:24 APTT 29.9 Seconds (25.1-36.5) 06/30/18 20:24
[2018-07-03] MEDS: Budesonide 0.5 mg/2 ml Inhal Susp UD IH SCH ×2 (09:06→19:48)
[2018-07-03] MEDS: Arformoterol 15 mcg/2 ml Inh Sol IH SCH ×2 (09:07→19:48)
[2018-07-03] MEDS ORDERED: metOLazone 5 MG TAB PO ONE (09:30)
[2018-07-03] MEDS: Cholecalciferol 1,000 INTLU TAB PO SCH (09:38)
[2018-07-03] MEDS: Metoprolol Succinate 25 mg XL Tab PO SCH (09:38)
--- NOTE | 2018-07-03 10:55 | PN ---
DATE: 07/03/2018 SUBJECTIVE: The patient is seen lying in bed in the CCU. Arranged on BIPAP mask. His arterial blood gas has improved. He does not appear to have significant diuresis, however. MEDICATIONS: His current medications include Ecotrin, Lasix 40 mg IV twice daily, Lipitor 20 mg daily, Norvasc 10 mg daily, Plavix 20 mg daily, Protonix 20 mg daily, Solu-Medrol 40 mg every 8 hours, metoprolol 25 mg daily. OBJECTIVE: GENERAL: He is an elderly man who appears uncomfortable due to presence of his BiPAP mask. VITAL SIGNS: Blood pressure is 130/60, with a pulse of 60 with ventricular pacing, respirations are 20. He is afebrile. HEENT: BiPAP mask in place. CHEST: Bibasilar rales with scattered rhonchi. HEART: PMI displaced laterally, soft systolic murmur at the left sternal border. ABDOMEN: Soft, nontender, normoactive bowel sounds. EXTREMITIES: 1+ ankle edema with chronic cellulitic changes. DIAGNOSTIC DATA: Recent history of blood gas would be 7.39, PCO2 of 87, PO2 109. CBC and BMP are pending. Chest x-ray from yesterday revealed unchanged pulmonary vascular congestive pattern. IMPRESSION: 1. Respiratory failure, multifactorial, combination of chronic obstructive pulmonary disease, restrictive lung disease and superimposed congestive heart failure. 2. Congestive heart failure, acute on chronic, combined systolic and diastolic. 3. History of aortic stenosis, status post aortic valve replacement. 4. Severe kyphoscoliosis. 5. Marked CO2 retention, acute on chronic, respiratory acidosis. 6. History of complete heart block, status post permanent pacemaker implant. 7. History of hypertension, hyperlipidemia. RECOMMENDATION: His current medications will continue for now. IV diuretic therapy will be intensified. One dose of Zaroxolyn will be administered. An echocardiogram is pending. Continue to ventilatory support is advised. His overall prognosis remains guarded. We will follow along with further recommendations. Chinedu Friedman MD
--- NOTE | 2018-07-03 11:34 | CP.CCUPN ---
<Nayeli Meier - Last Filed: 07/03/18 13:01> CCU Subjective - Physician Review Subjective (Free Text): 07/03/18 11:23 Nayeli Meier PGY1 Critical Care Progress Note Patient seen and examined at bedside this morning. No acute events reported overnight. Patient elected to be DNI/DNR. On bipap overnight with settings of . Eating comfortably this morning and denies CP, SOB, fevers, nausea and vomiting. CCU Objective - Vital Signs / Intake & Output Vital Signs (Last 4 hours): Vital Signs Pulse Resp BP Pulse Ox 07/03/18 10:00 63 40 H 165/66 H 84 L 07/03/18 09:50 68 84 L 07/03/18 09:40 69 20 88 L 07/03/18 09:38 159/59 H 07/03/18 09:37 159/59 H 07/03/18 09:30 74 42 H 159/59 H 88 L 07/03/18 09:20 68 42 H 89 L 07/03/18 09:10 63 42 H 99 07/03/18 09:00 62 44 H 158/39 H 93 L 07/03/18 08:50 73 20 88 L 07/03/18 08:40 63 86 L 07/03/18 08:30 64 35 H 148/51 L 87 L 07/03/18 08:20 62 19 88 L 07/03/18 08:10 64 37 H 88 L 07/03/18 08:00 62 23 144/85 96 07/03/18 07:50 64 37 H 94 L 07/03/18 07:40 61 97 07/03/18 07:30 61 36 H 149/62 99 Intake and Output (Last 8hrs): Intake & Output 07/02/18 07/03/18 07/03/18 22:59 06:59 14:59 Intake Total 400 240 Output Total 500 150 Balance -100 90 Weight 179 lb Intake: IV 400 Left Antecubital 400 Oral 240 Output: Urine 500 150 Urine, Voided 500 150 Other: # Bowel Movements 0 - Physical Exam Head: Positive for: Atraumatic, Normocephalic Pupils: Positive for: PERRL Extroacular Muscles: Positive for: EOMI Conjunctiva: Positive for: Normal Mouth: Positive for: Moist Mucous Membranes Neck: Positive for: Normal Range of Motion Respiratory/Chest: Positive for: Clear to Auscultation, Good Air Exchange. Negative for: Respiratory Distress, Accessory Muscle Use, Wheezes, Decreased Breath Sounds, Rales, Retracting, Rhonchi Cardiovascular: Positive for: Regular Rate and Rhythm, Normal S1, S2. Negative for: Murmurs Abdomen: Negative for: Tenderness, Distention, Peritoneal Signs Back: Positive for: Normal Inspection Upper Extremity: Positive for: Normal Inspection. Negative for: Cyanosis, Edema Lower Extremity: Positive for: Normal Inspection. Negative for: Edema Neurological: Positive for: GCS=15, CN II-XII Intact, Speech Normal Skin: Positive for: Warm, Dry, Normal Color. Negative for: Rashes Psychiatric: Positive for: Alert, Oriented x 3, Normal Insight, Normal Concentration - Medications Active Medications: Active Medications Generic Name Dose Route Start Last Admin Trade Name Freq PRN Reason Stop Dose Admin Amlodipine Besylate 10 mg 07/01/18 14:45 07/03/18 09:38 Norvasc PO 10 mg DAILY NUZHAT Administration Arformoterol Tartrate 15 mcg 07/03/18 08:00 07/03/18 09:07 Brovana IH 15 mcg [id number] [facility] Administration Aspirin 81 mg 07/01/18 10:00 07/03/18 09:38 Ecotrin PO 81 mg DAILY [facility] Administration Atorvastatin Calcium 20 mg 07/01/18 22:00 07/02/18 21:36 Lipitor PO 20 mg HS NU[facility]AT Administration Budesonide 0.5 mg 07/03/18 08:00 07/03/18 09:06 Pulmicort Respules IH 0.5 mg [id number] NU[facility]AT Administration Cholecalciferol 1,000 intlu 07/01/18 10:00 07/03/18 09:38 Vitamin D PO 1,000 intlu DAILY [facility] Administration Furosemide 80 mg 07/03/18 10:00 07/03/18 09:37 Lasix IV 80 mg BID NU[facility]AT Administration Methylprednisolone 40 mg 07/03/18 10:15 [facility]-Medrol IVP Q12H [facility] Metoprolol Succinate 25 mg 07/01/18 10:00 07/03/18 09:38 Toprol Xl PO 25 mg DAILY NU[facility] Administration Pantoprazole Sodium 20 mg 07/02/18 06:00 07/03/18 05:41 Protonix Ec Tab PO 20 mg 0600 NUZHAT Administration Paroxetine HCl 20 mg 07/01/18 10:00 07/03/18 09:38 Paxil PO 20 mg DAILY NUZHAT Administration - Patient Studies Lab Studies: Microbiology Studies 07/01/18 10:45 MRSA Culture (Admit) - Final Naris MRSA NOT DETECTED 06/30/18 20:30 Blood Culture - Preliminary Blood-Venous NO GROWTH AFTER 48 HOURS 06/30/18 20:15 Blood Culture - Preliminary Blood-Venous NO GROWTH AFTER 48 HOURS Lab Studies 07/03/18 07/03/18 07/03/18 Range/Units 05:40 05:40 05:15 WBC 11.5 H (4.5-11.0) 10^3/uL RBC 3.67 (3.5-6.1) 10^6/uL Hgb 10.6 L (14.0-18.0) g/dL Hct 37.7 L (42.0-52.0) % MCV 102.7 (80.0-105.0) fl MCH 28.9 (25.0-35.0) pg MCHC 28.1 L (31.0-37.0) g/dl RDW 14.2 (11.5-14.5) % Plt Count 221 (120.0-450.0) 10^3/uL MPV 9.7 (7.0-11.0) fl Gran % 92.3 H (50.0-68.0) % Lymph % (Auto) 4.5 L (22.0-35.0) % [place] % (Auto) 3.2 (1.0-6.0) % Eos % (Auto) 0.0 L (1.5-5.0) % Baso % (Auto) 0.0 (0.0-3.0) % Gran # 10.58 H (1.4-6.5) Lymph # (Auto) 0.5 L (1.2-3.4) [place] # (Auto) 0.4 (0.1-0.6) Eos # (Auto) 0.0 (0.0-0.7) Baso # (Auto) 0.00 (0.0-2.0) K/mm3 Neutrophils % (Manual) (50.0-70.0) % Lymphocytes % (Manual) (22.0-35.0) % Monocytes % (Manual) (1.0-6.0) % Platelet Evaluation (NORMAL) Hypochromasia Poikilocytosis (manual Anisocytosis (manual) Macrocytosis (manual) Tear Drop Cells Ovalocytes Stomatocytes pCO2 87 H* (35-45) mm/Hg pO2 109.0 H (80-100) mm/Hg HCO3 52.7 H* (21-28) mmol/L ABG pH 7.39 (7.35-7.45) ABG Total CO2 55.4 H (22-28) mmol.L ABG O2 Saturation 98.7 H (95-98) % ABG O2 Content 14.5 L (15-23) ML/dl ABG Base Excess 23.5 H (-2.0-3.0) mmol/L ABG Hemoglobin 10.7 L (11.7-17.4) g/dL ABG Carboxyhemoglobin 2.3 H (0.5-1.5) % POC ABG HHb (Measured) 1.3 (0-5) % ABG Methemoglobin 1.3 (0.0-3.0) % ABG O2 Capacity 14.7 L (16-24) mL/dl Hgb O2 Saturation 95.1 (95.0-98.0) % FiO2 50.0 % Sodium 140 (132-148) mmol/L Potassium 4.3 (3.6-5.0) mmol/L Chloride 88 L (98-107) mmol/L Carbon Dioxide 49 H (21-33) mmol/L Anion Gap 7 L (10-20) BUN 51 H (7-21) mg/dL Creatinine 1.3 (0.8-1.5) mg/dl Est GFR ( Amer) > 60 Est GFR (Non-Af Amer) 53 Random Glucose 141 H (70-110) mg/dL Calcium 9.7 (8.4-10.5) mg/dL Total Bilirubin 0.7 (0.2-1.3) mg/dL AST 52 (17-59) U/L ALT 62 H (7-56) U/L Alkaline Phosphatase 88 (38-126) U/L Total Protein 6.7 (5.8-8.3) g/dL Albumin 3.4 (3.0-4.8) g/dL Globulin 3.2 gm/dL Albumin/Globulin Ratio 1.1 (1.1-1.8) 07/02/18 07/02/18 Range/Units 13:15 05:00 WBC (4.5-11.0) 10^3/uL RBC (3.5-6.1) 10^6/uL Hgb (14.0-18.0) g/dL Hct (42.0-52.0) % MCV (80.0-105.0) fl MCH (25.0-35.0) pg MCHC (31.0-37.0) g/dl RDW (11.5-14.5) % Plt Count (120.0-450.0) 10^3/uL MPV (7.0-11.0) fl Gran % (50.0-68.0) % Lymph % (Auto) (22.0-35.0) % [place] % (Auto) (1.0-6.0) % Eos % (Auto) (1.5-5.0) % Baso % (Auto) (0.0-3.0) % Gran # (1.4-6.5) Lymph # (Auto) (1.2-3.4) [place] # (Auto) (0.1-0.6) Eos # (Auto) (0.0-0.7) Baso # (Auto) (0.0-2.0) K/mm3 Neutrophils % (Manual) 92 H (50.0-70.0) % Lymphocytes % (Manual) 5 L (22.0-35.0) % Monocytes % (Manual) 3 (1.0-6.0) % Platelet Evaluation Normal (NORMAL) Hypochromasia 1+ Poikilocytosis (manual Slight Anisocytosis (manual) 1+ Macrocytosis (manual) 1+ Tear Drop Cells Slight Ovalocytes Slight Stomatocytes Slight pCO2 (35-45) mm/Hg pO2 (80-100) mm/Hg HCO3 (21-28) mmol/L ABG pH (7.35-7.45) ABG Total CO2 (22-28) mmol.L ABG O2 Saturation (95-98) % ABG O2 Content (15-23) ML/dl ABG Base Excess (-2.0-3.0) mmol/L ABG Hemoglobin (11.7-17.4) g/dL ABG Carboxyhemoglobin (0.5-1.5) % POC ABG HHb (Measured) (0-5) % ABG Methemoglobin (0.0-3.0) % ABG O2 Capacity (16-24) mL/dl Hgb O2 Saturation (95.0-98.0) % FiO2 % Sodium 138 (132-148) mmol/L Potassium 4.9 (3.6-5.0) mmol/L Chloride 89 L (98-107) mmol/L Carbon Dioxide 43 H (21-33) mmol/L Anion Gap 11 (10-20) BUN 45 H (7-21) mg/dL Creatinine 1.3 (0.8-1.5) mg/dl Est GFR ( Amer) > 60 Est GFR (Non-Af Amer) 53 Random Glucose 224 H (70-110) mg/dL Calcium 9.5 (8.4-10.5) mg/dL Total Bilirubin (0.2-1.3) mg/dL AST (17-59) U/L ALT (7-56) U/L Alkaline Phosphatase (38-126) U/L Total Protein (5.8-8.3) g/dL Albumin (3.0-4.8) g/dL Globulin gm/dL Albumin/Globulin Ratio (1.1-1.8) Laboratory Results - last 24 hr 07/02/18 07/02/18 07/03/18 05:00 13:15 05:15 WBC RBC Hgb Hct MCV MCH MCHC RDW Plt Count MPV Gran % Lymph % (Auto) [place] % (Auto) Eos % (Auto) Baso % (Auto) Gran # Lymph # (Auto) [place] # (Auto) Eos # (Auto) Baso # (Auto) Neutrophils % (Manual) 92 H Lymphocytes % (Manual) 5 L Monocytes % (Manual) 3 Platelet Evaluation Normal Hypochromasia 1+ Poikilocytosis (manual Slight Anisocytosis (manual) 1+ Macrocytosis (manual) 1+ Tear Drop Cells Slight Ovalocytes Slight Stomatocytes Slight pCO2 87 H* pO2 109.0 H HCO3 52.7 H* ABG pH 7.39 ABG Total CO2 55.4 H ABG O2 Saturation 98.7 H ABG O2 Content 14.5 L ABG Base Excess 23.5 H ABG Hemoglobin 10.7 L ABG Carboxyhemoglobin 2.3 H POC ABG HHb (Measured) 1.3 ABG Methemoglobin 1.3 ABG O2 Capacity 14.7 L Hgb O2 Saturation 95.1 FiO2 50.0 Sodium 138 Potassium 4.9 Chloride 89 L Carbon Dioxide 43 H Anion Gap 11 BUN 45 H Creatinine 1.3 Est GFR ( Amer) > 60 Est GFR (Non-Af Amer) 53 Random Glucose 224 H Calcium 9.5 Total Bilirubin AST ALT Alkaline Phosphatase Total Protein Albumin Globulin Albumin/Globulin Ratio 07/03/18 07/03/18 05:40 05:40 WBC 11.5 H RBC 3.67 Hgb 10.6 L Hct 37.7 L MCV 102.7 MCH 28.9 MCHC 28.1 L RDW 14.2 Plt Count 221 MPV 9.7 Gran % 92.3 H Lymph % (Auto) 4.5 L [place] % (Auto) 3.2 Eos % (Auto) 0.0 L Baso % (Auto) 0.0 Gran # 10.58 H Lymph # (Auto) 0.5 L [place] # (Auto) 0.4 Eos # (Auto) 0.0 Baso # (Auto) 0.00 Neutrophils % (Manual) Lymphocytes % (Manual) Monocytes % (Manual) Platelet Evaluation Hypochromasia Poikilocytosis (manual Anisocytosis (manual) Macrocytosis (manual) Tear Drop Cells Ovalocytes Stomatocytes pCO2 pO2 HCO3 ABG pH ABG Total CO2 ABG O2 Saturation ABG O2 Content ABG Base Excess ABG Hemoglobin ABG Carboxyhemoglobin POC ABG HHb (Measured) ABG Methemoglobin ABG O2 Capacity Hgb O2 Saturation FiO2 Sodium 140 Potassium 4.3 Chloride 88 L Carbon Dioxide 49 H Anion Gap 7 L BUN 51 H Creatinine 1.3 Est GFR ( Amer) > 60 Est GFR (Non-Af Amer) 53 Random Glucose 141 H Calcium 9.7 Total Bilirubin 0.7 AST 52 ALT 62 H Alkaline Phosphatase 88 Total Protein 6.7 Albumin 3.4 Globulin 3.2 Albumin/Globulin Ratio 1.1 Critical Care Progress Note - Nutrition Nutrition: Nutrition Category Date Time Status Heart Healthy Diet [DIET] Diets 07/01/18 Lunch Active Assessment/Plan - Assessment and Plan (Free Text) Assessment: This is an 83 year old male with PMH of CAD s/p CANG, COPD on home oxygen 3L, CHF, MVP s/p surgery and PPM who presented to the hospital on 06/30/18 for weakness and drooling and found to have an oxygen saturation of 60%. Patient noted to have primary chronic respiratory acidosis on initial ABG and CHF exacerbation with BNP of 8,000. If patient stable today and continues to improve, likely transfer tomorrow. Plan: Neuro: -maintain normothermia -AAO x3, moving extremities spontaneously past midline -Head CT w/o contrast 06/30/18 showed no acute findings Cardio: -maintain MAP>65 -will monitor vitals including HR and BP closely -echo pending -continue toprol 25 PO daily, norvasc 10 PO, lipitor, ASA -trops x2 WNL -Cardio on consult, Dr. Bronson Lungs: -SaO2 >90% -continue oxygen NC 3L -bipap at night and as needed -CXR 07/02/18 showed stable cardiogenic edema, no interval changes -continue brovana, pulmicort, decreased solumedrol to 40 IV q12 today -Pulm on consult, Dr. Jalloh Renal: -maintain euvolemia -avoid nephrotoxic agents, hypochloremia -replace electrolytes as needed -BUN/Cr 51/1.3, stopped NS today -ABG today reads pH/pO2/pCO2/bicarb of 7.39/109/87/49 significant for primary chronic respiratory acidosis with metabolic alkalosis Heme: -Hg today is 10.6 from 11.7 yesterday, will monitor -DVT ppx with heparin 5k q8 Endo: -maintain euglycemia ID: -WBC is 11.5 today, afebrile -blood culture negative for 48 hours, MRSA not detected GI: -HHD -LFTs improving today 52/62 from 65/75 -GI ppx with protonix Dispo: will monitor respiratory status today, if improved will transfer tomorrow. Patient seen and case discussed with attending, Dr. Ward <Nazario Ward - Last Filed: 07/03/18 13:20> CCU Objective - Vital Signs / Intake & Output Vital Signs (Last 4 hours): Vital Signs Pulse Resp BP Pulse Ox 07/03/18 10:00 63 40 H 165/66 H 84 L 07/03/18 09:50 68 84 L 07/03/18 09:40 69 20 88 L 07/03/18 09:38 159/59 H 07/03/18 09:37 159/59 H 07/03/18 09:30 74 42 H 159/59 H 88 L 07/03/18 09:20 68 42 H 89 L Intake and Output (Last 8hrs): Intake & Output 07/02/18 07/03/18 07/03/18 22:59 06:59 14:59 Intake Total 400 240 Output Total 500 150 Balance -100 90 Weight 179 lb Intake: IV 400 Left Antecubital 400 Oral 240 Output: Urine 500 150 Urine, Voided 500 150 Other: # Bowel Movements 0 - Medications Active Medications: Active Medications Generic Name Dose Route Start Last Admin Trade Name Freq PRN Reason Stop Dose Admin Amlodipine Besylate 10 mg 07/01/18 14:45 07/03/18 09:38 Norvasc PO 10 mg DAILY NUZHAT Administration Arformoterol Tartrate 15 mcg 07/03/18 08:00 07/03/18 09:07 Brovana IH 15 mcg [id number] NUZHAT Administration Aspirin 81 mg 07/01/18 10:00 07/03/18 09:38 Ecotrin PO 81 mg DAILY NUZHAT Administration Atorvastatin Calcium 20 mg 07/01/18 22:00 07/02/18 21:36 Lipitor PO 20 mg HS NUZHAT Administration Budesonide 0.5 mg 07/03/18 08:00 07/03/18 09:06 Pulmicort Respules IH 0.5 mg [id number] NUZHAT Administration Cholecalciferol 1,000 intlu 07/01/18 10:00 07/03/18 09:38 Vitamin D PO 1,000 intlu DAILY [facility] Administration Furosemide 80 mg 07/03/18 10:00 07/03/18 09:37 Lasix IV 80 mg BID [facility] Administration Heparin Sodium (Porcine) 5,000 units 07/03/18 14:00 Heparin SC Q8 [facility] Protocol Methylprednisolone 40 mg 07/03/18 10:15 Solu-Medrol IVP Q12H [facility] Metoprolol Succinate 25 mg 07/01/18 10:00 07/03/18 09:38 Toprol Xl PO 25 mg DAILY [facility] Administration Pantoprazole Sodium 20 mg 07/02/18 06:00 07/03/18 05:41 Protonix Ec Tab PO 20 mg 0600 NU[facility]AT Administration Paroxetine HCl 20 mg 07/01/18 10:00 07/03/18 09:38 Paxil PO 20 mg DAILY NUZHAT Administration - Patient Studies Lab Studies: Microbiology Studies 07/01/18 10:45 MRSA Culture (Admit) - Final Naris MRSA NOT DETECTED 06/30/18 20:30 Blood Culture - Preliminary Blood-Venous NO GROWTH AFTER 48 HOURS 06/30/18 20:15 Blood Culture - Preliminary Blood-Venous NO GROWTH AFTER 48 HOURS Lab Studies 07/03/18 07/03/18 07/03/18 Range/Units 05:40 05:40 05:15 WBC 11.5 H (4.5-11.0) 10^3/uL RBC 3.67 (3.5-6.1) 10^6/uL Hgb 10.6 L (14.0-18.0) g/dL Hct 37.7 L (42.0-52.0) % MCV 102.7 (80.0-105.0) fl MCH 28.9 (25.0-35.0) pg MCHC 28.1 L (31.0-37.0) g/dl RDW 14.2 (11.5-14.5) % Plt Count 221 (120.0-450.0) 10^3/uL MPV 9.7 (7.0-11.0) fl Gran % 92.3 H (50.0-68.0) % Lymph % (Auto) 4.5 L (22.0-35.0) % [place] % (Auto) 3.2 (1.0-6.0) % Eos % (Auto) 0.0 L (1.5-5.0) % Baso % (Auto) 0.0 (0.0-3.0) % Gran # 10.58 H (1.4-6.5) Lymph # (Auto) 0.5 L (1.2-3.4) [place] # (Auto) 0.4 (0.1-0.6) Eos # (Auto) 0.0 (0.0-0.7) Baso # (Auto) 0.00 (0.0-2.0) K/mm3 pCO2 87 H* (35-45) mm/Hg pO2 109.0 H (80-100) mm/Hg HCO3 52.7 H* (21-28) mmol/L ABG pH 7.39 (7.35-7.45) ABG Total CO2 55.4 H (22-28) mmol.L ABG O2 Saturation 98.7 H (95-98) % ABG O2 Content 14.5 L (15-23) ML/dl ABG Base Excess 23.5 H (-2.0-3.0) mmol/L ABG Hemoglobin 10.7 L (11.7-17.4) g/dL ABG Carboxyhemoglobin 2.3 H (0.5-1.5) % POC ABG HHb (Measured) 1.3 (0-5) % ABG Methemoglobin 1.3 (0.0-3.0) % ABG O2 Capacity 14.7 L (16-24) mL/dl Hgb O2 Saturation 95.1 (95.0-98.0) % FiO2 50.0 % Sodium 140 (132-148) mmol/L Potassium 4.3 (3.6-5.0) mmol/L Chloride 88 L (98-107) mmol/L Carbon Dioxide 49 H (21-33) mmol/L Anion Gap 7 L (10-20) BUN 51 H (7-21) mg/dL Creatinine 1.3 (0.8-1.5) mg/dl Est GFR ( Amer) > 60 Est GFR (Non-Af Amer) 53 Random Glucose 141 H (70-110) mg/dL Calcium 9.7 (8.4-10.5) mg/dL Total Bilirubin 0.7 (0.2-1.3) mg/dL AST 52 (17-59) U/L ALT 62 H (7-56) U/L Alkaline Phosphatase 88 (38-126) U/L Total Protein 6.7 (5.8-8.3) g/dL Albumin 3.4 (3.0-4.8) g/dL Globulin 3.2 gm/dL Albumin/Globulin Ratio 1.1 (1.1-1.8) 07/02/18 Range/Units 13:15 WBC (4.5-11.0) 10^3/uL RBC (3.5-6.1) 10^6/uL Hgb (14.0-18.0) g/dL Hct (42.0-52.0) % MCV (80.0-105.0) fl MCH (25.0-35.0) pg MCHC (31.0-37.0) g/dl RDW (11.5-14.5) % Plt Count (120.0-450.0) 10^3/uL MPV (7.0-11.0) fl Gran % (50.0-68.0) % Lymph % (Auto) (22.0-35.0) % [place] % (Auto) (1.0-6.0) % Eos % (Auto) (1.5-5.0) % Baso % (Auto) (0.0-3.0) % Gran # (1.4-6.5) Lymph # (Auto) (1.2-3.4) [place] # (Auto) (0.1-0.6) Eos # (Auto) (0.0-0.7) Baso # (Auto) (0.0-2.0) K/mm3 pCO2 (35-45) mm/Hg pO2 (80-100) mm/Hg HCO3 (21-28) mmol/L ABG pH (7.35-7.45) ABG Total CO2 (22-28) mmol.L ABG O2 Saturation (95-98) % ABG O2 Content (15-23) ML/dl ABG Base Excess (-2.0-3.0) mmol/L ABG Hemoglobin (11.7-17.4) g/dL ABG Carboxyhemoglobin (0.5-1.5) % POC ABG HHb (Measured) (0-5) % ABG Methemoglobin (0.0-3.0) % ABG O2 Capacity (16-24) mL/dl Hgb O2 Saturation (95.0-98.0) % FiO2 % Sodium 138 (132-148) mmol/L Potassium 4.9 (3.6-5.0) mmol/L Chloride 89 L (98-107) mmol/L Carbon Dioxide 43 H (21-33) mmol/L Anion Gap 11 (10-20) BUN 45 H (7-21) mg/dL Creatinine 1.3 (0.8-1.5) mg/dl Est GFR ( Amer) > 60 Est GFR (Non-Af Amer) 53 Random Glucose 224 H (70-110) mg/dL Calcium 9.5 (8.4-10.5) mg/dL Total Bilirubin (0.2-1.3) mg/dL AST (17-59) U/L ALT (7-56) U/L Alkaline Phosphatase (38-126) U/L Total Protein (5.8-8.3) g/dL Albumin (3.0-4.8) g/dL Globulin gm/dL Albumin/Globulin Ratio (1.1-1.8) Laboratory Results - last 24 hr 07/02/18 07/03/18 07/03/18 13:15 05:15 05:40 WBC 11.5 H RBC 3.67 Hgb 10.6 L Hct 37.7 L MCV 102.7 MCH 28.9 MCHC 28.1 L RDW 14.2 Plt Count 221 MPV 9.7 Gran % 92.3 H Lymph % (Auto) 4.5 L [place] % (Auto) 3.2 Eos % (Auto) 0.0 L Baso % (Auto) 0.0 Gran # 10.58 H Lymph # (Auto) 0.5 L [place] # (Auto) 0.4 Eos # (Auto) 0.0 Baso # (Auto) 0.00 pCO2 87 H* pO2 109.0 H HCO3 52.7 H* ABG pH 7.39 ABG Total CO2 55.4 H ABG O2 Saturation 98.7 H ABG O2 Content 14.5 L ABG Base Excess 23.5 H ABG Hemoglobin 10.7 L ABG Carboxyhemoglobin 2.3 H POC ABG HHb (Measured) 1.3 ABG Methemoglobin 1.3 ABG O2 Capacity 14.7 L Hgb O2 Saturation 95.1 FiO2 50.0 Sodium 138 Potassium 4.9 Chloride 89 L Carbon Dioxide 43 H Anion Gap 11 BUN 45 H Creatinine 1.3 Est GFR ( Amer) > 60 Est GFR (Non-Af Amer) 53 Random Glucose 224 H Calcium 9.5 Total Bilirubin AST ALT Alkaline Phosphatase Total Protein Albumin Globulin Albumin/Globulin Ratio 07/03/18 05:40 WBC RBC Hgb Hct MCV MCH MCHC RDW Plt Count MPV Gran % Lymph % (Auto) [place] % (Auto) Eos % (Auto) Baso % (Auto) Gran # Lymph # (Auto) [place] # (Auto) Eos # (Auto) Baso # (Auto) pCO2 pO2 HCO3 ABG pH ABG Total CO2 ABG O2 Saturation ABG O2 Content ABG Base Excess ABG Hemoglobin ABG Carboxyhemoglobin POC ABG HHb (Measured) ABG Methemoglobin ABG O2 Capacity Hgb O2 Saturation FiO2 Sodium 140 Potassium 4.3 Chloride 88 L Carbon Dioxide 49 H Anion Gap 7 L BUN 51 H Creatinine 1.3 Est GFR ( Amer) > 60 Est GFR (Non-Af Amer) 53 Random Glucose 141 H Calcium 9.7 Total Bilirubin 0.7 AST 52 ALT 62 H Alkaline Phosphatase 88 Total Protein 6.7 Albumin 3.4 Globulin 3.2 Albumin/Globulin Ratio 1.1 Critical Care Progress Note - Nutrition Nutrition: Nutrition Category Date Time Status Heart Healthy Diet [DIET] Diets 07/01/18 Lunch Active Assessment/Plan - Assessment and Plan (Free Text) Assessment: Patient seen and examined on rounds with resident, agree with note with following additions/exceptions Patient is 83yo male with PMHx of CAD s/p CABG, end stage COPD on home O2, HTN, ?dementia, admitted with chronic resp acidosis, hypercapnia with now normal pH Pulmonary following Pt is now DNR/DNI as per familys request. Resp Acidosis, chronic compensated CAD s/p CABG COPD on home O2 HTN - currently afebrile, HD stable, comfortable in NAD, AAOx2 - ABG with CHRONIC resp acidosis, compensated, patient awake, alert, oriented, no need for intubation at this time, sat 92%, pH NORMAL Recommend: - cont with BIPAP only as needed, supp o2 as needed, goal sat 90%, duonebs PRN - follow up Pulmonary - Solumedrol 20mg IV TID - BP control - ASA - GI ppx - DVT ppx, HSQ - PT/OT - Monitor on MICU DNR/DNI
--- NOTE | 2018-07-03 11:45 | PN ---
DATE: 07/03/2018(710am-800am) SUBJECTIVE: The patient appears comfortable this morning. He is not short of breath at rest. He is currently on BiPap. PHYSICAL EXAMINATION: VITAL SIGNS: Temperature is 97.8, pulse 61, respirations 20, blood pressure 130/60. Oxygen saturation on BiPap is 100%. HEENT: Normocephalic, atraumatic. No JVD. CARDIOVASCULAR: Systolic ejection murmur at the lower left sternal border. Positive S3 gallop. LUNGS: Minimal crackles at the bases. Minimal rhonchi. No wheezing. EXTREMITIES: Mild edema. No cyanosis, no clubbing. Calves are nontender to palpation. GASTROINTESTINAL: Abdomen is soft, nontender and nondistended. Bowel sounds are positive. SKIN: No acute rash. NEUROLOGIC: Exam limited at the present time. PERTINENT LABORATORY DATA: Arterial blood gas was done on BiPap this morning. Results are: PH 7.39, pCO2 of 87, pO2 of 109. Last chest x-ray done was yesterday morning. There remains [id number] pulmonary vascular congestion with small bilateral pleural effusions. IMPRESSION: 1. Respiratory failure. 2. Acute congestive heart failure. 3. Advanced chronic obstructive pulmonary disease. 4. Mild anemia. PLAN: The patient appears comfortable this morning. He is not short of breath at rest. He is awake and alert. He does state to feeling much better overall. On physical exam, there is no significant bronchospasm noted. I have also reviewed the arterial blood gas. The arterial blood gas is certainly improved ---with an increase in the pH (now normal), and a decrease in the pCO2. We could also probably decrease the FIO2 with the BiPap. The patient remains on intravenous steroids. I will also add inhaled Brovana, along with Pulmicort. The patient does have a history of advanced chronic obstructive pulmonary disease. I would continue with the treatment for congestive heart failure as per Cardiology. Input by Dr. Friedman is noted. The patient remains on intravenous Lasix. Clinical status of the patient is significantly improved - compared to the initial presentation. However, given the above, the future status/prognosis for this patient does remain very guarded. I did discuss the case with Dr. Ward this morning. I will also discuss the case with the attending physician later this morning. Clint Jalloh MD [facility] # [id number] LUCY
--- NOTE | 2018-07-03 12:10 | PN ---
DATE: SUBJECTIVE: An 83-year-old white male, in the intensive care unit, status post CO2 narcosis, congestive heart failure, acute systolic and chronic diastolic, COPD, elevated BNP over 1000, pCO2 was over 100. PHYSICAL EXAMINATION: GENERAL: The patient is more awake and alert, on BiPAP. VITAL SIGNS: Stable. LUNGS: He still has some rales at both bases and currently shows signs of pulmonary edema. HEART: Regular sinus rhythm. ASSESSMENT AND PLAN: The patient is tolerating his bilevel positive airway pressure well. He is tolerating his diet and continuing to progress. He does have elevated BUN and creatinine at 51 and 1.3. We will start to taper his diuretics and continue to treat his heart failure. PLAN: Continue ICU until he is stable. Case also discussed with the family. Ramy Michael MD (Delete this signature block when dictator is a preceptor.) cc: MD Umair (Delete if not dictated.)
[2018-07-04 05:21] LABS: ARTERIAL BLOOD GAS HEMOGLOBIN 10.8 g/dL (11.7-17.4); ARTERIAL BLOOD GAS O2 CAPACITY 14.8 mL/dl (16-24); ARTERIAL BLOOD GAS O2 CONTENT 14.7 ML/dl (15-23); ARTERIAL BLOOD GAS PH 7.39 (7.35-7.45); ARTERIAL BLOOD GAS TCO2 61.7 mmol.L (22-28)
[2018-07-04] MEDS: Pantoprazole 20 mg EC Tab PO SCH (05:36)
[2018-07-04 05:55] LABS: ARTERIAL BLOOD GAS HCO3 58.7 mmol/L (21-28); ARTERIAL BLOOD GAS PCO2 97 mm/Hg (35-45)
[2018-07-04 06:48] LABS: GRAN # 13.37 (1.4-6.5); GRAN % 92.3 % (50.0-68.0); HEMOGLOBIN 10.9 g/dL (14.0-18.0); LYMPH # 0.7 (1.2-3.4); LYMPH % 4.6 % (22.0-35.0); MEAN CELL VOLUME 100.8 fl (80.0-105.0); MEAN CORPUSCULAR HEMOGLOBIN 29.7 pg (25.0-35.0); MEAN CORPUSCULAR HGB CONC 29.5 g/dl (31.0-37.0); MEAN PLATELET VOLUME 9.8 fl (7.0-11.0); MONO # 0.5 (0.1-0.6); MONO % 3.1 % (1.0-6.0); RBC 3.67 10^6/uL (3.5-6.1); RED CELL DISTRIBUTION WIDTH 14.1 % (11.5-14.5); WHITE BLOOD COUNT 14.5 10^3/uL (4.5-11.0)
[2018-07-04] MEDS: Arformoterol 15 mcg/2 ml Inh Sol IH SCH ×2 (07:25→20:29)
[2018-07-04] MEDS: Budesonide 0.5 mg/2 ml Inhal Susp UD IH SCH ×2 (07:25→20:29)
[2018-07-04 07:42] LABS: ALB/GLOB RATIO 1.1 (1.1-1.8); ALBUMIN 3.5 g/dL (3.0-4.8); ALT/SGPT 55 U/L (7-56); AST/SGOT 44 U/L (17-59); BLOOD UREA NITROGEN 61 mg/dL (7-21); CALCIUM 9.7 mg/dL (8.4-10.5); GFR NON-AFRICAN AMERICAN 58
--- NOTE | 2018-07-04 09:00 | RAD ---
Date of service: 07/04/2018 HISTORY: follow up COMPARISON: 07/02/2018. FINDINGS: LUNGS: There is severe pulmonary venous congestion. PLEURA: Moderate pleural effusions, larger on the right. No pneumothorax. CARDIOVASCULAR: Mild cardiomegaly and prominent central vasculature. There are aortic atherosclerotic calcifications present. Status post CABG. There is stable position of left-sided permanent pacing device. OSSEOUS STRUCTURES: There an S-shaped scoliosis in the thoracolumbar spine. VISUALIZED UPPER ABDOMEN: Normal. OTHER FINDINGS: None. IMPRESSION: Little interval change in known congestive heart failure.
--- NOTE | 2018-07-04 09:42 | CP.CCUPN ---
<Nayeli Meier - Last Filed: 07/04/18 10:52> CCU Subjective - Physician Review Subjective (Free Text): 07/04/18 10:53 Nayeli Meier PGY1 Critical Care Progress Note Patient seen and examined at bedside this morning. No acute events reported overnight. Attempting to remove bipap overnight and restraints given temporarily last night which were removed this morning. Titrating down steroids to PO. Offers no complaints today. Transfer to tele. CCU Objective - Vital Signs / Intake & Output Vital Signs (Last 4 hours): Vital Signs Pulse 07/04/18 07:00 78 Intake and Output (Last 8hrs): Intake & Output 07/03/18 07/04/18 07/04/18 22:59 06:59 14:59 Intake Total 250 Output Total 550 1700 Balance -550 -1450 Intake: Oral 250 Output: Urine 550 1700 Urine, Voided 550 1700 - Physical Exam Head: Positive for: Atraumatic, Normocephalic Pupils: Positive for: PERRL Extroacular Muscles: Positive for: EOMI Conjunctiva: Positive for: Normal Mouth: Positive for: Moist Mucous Membranes Neck: Positive for: Normal Range of Motion Respiratory/Chest: Positive for: Clear to Auscultation, Good Air Exchange. Negative for: Respiratory Distress, Accessory Muscle Use, Wheezes, Decreased Breath Sounds, Rales, Retracting, Rhonchi Cardiovascular: Positive for: Regular Rate and Rhythm, Normal S1, S2. Negative for: Murmurs Abdomen: Negative for: Tenderness, Distention, Peritoneal Signs Back: Positive for: Normal Inspection Upper Extremity: Positive for: Normal Inspection. Negative for: Cyanosis, Edema Lower Extremity: Positive for: Normal Inspection. Negative for: Edema Neurological: Positive for: GCS=15, CN II-XII Intact, Speech Normal Skin: Positive for: Warm, Dry, Normal Color. Negative for: Rashes Psychiatric: Positive for: Alert, Oriented x 3, Normal Insight, Normal Concentration - Medications Active Medications: Active Medications Generic Name Dose Route Start Last Admin Trade Name Freq PRN Reason Stop Dose Admin Amlodipine Besylate 10 mg 07/01/18 14:45 07/03/18 09:38 Norvasc PO 10 mg DAILY NUZHAT Administration Arformoterol Tartrate 15 mcg 07/03/18 08:00 07/04/18 07:25 Brovana IH 15 mcg [id number] NUZHAT Administration Aspirin 81 mg 07/01/18 10:00 07/03/18 09:38 Ecotrin PO 81 mg DAILY NUZHAT Administration Atorvastatin Calcium 20 mg 07/01/18 22:00 07/03/18 21:30 Lipitor PO 20 mg HS NUZHAT Administration Budesonide 0.5 mg 07/03/18 08:00 07/04/18 07:25 Pulmicort Respules IH 0.5 mg [id number] NUZHAT Administration Cholecalciferol 1,000 intlu 07/01/18 10:00 07/03/18 09:38 Vitamin D PO 1,000 intlu DAILY NUZHAT Administration Furosemide 80 mg 07/03/18 10:00 07/03/18 17:40 Lasix IV 80 mg BID NUZHAT Administration Heparin Sodium (Porcine) 5,000 units 07/03/18 14:00 07/04/18 05:36 Heparin SC 5,000 units Q8 NUZHAT Administration Protocol Methylprednisolone 40 mg 07/03/18 10:15 07/03/18 21:30 Solu-Medrol IVP 40 mg Q12H NUZHAT Administration Metoprolol Succinate 25 mg 07/01/18 10:00 07/03/18 09:38 Toprol Xl PO 25 mg DAILY NUZHAT Administration Pantoprazole Sodium 20 mg 07/02/18 06:00 07/04/18 05:36 Protonix Ec Tab PO 20 mg 0600 NUZHAT Administration Paroxetine HCl 20 mg 07/01/18 10:00 07/03/18 09:38 Paxil PO 20 mg DAILY NUZHAT Administration - Patient Studies Lab Studies: Microbiology Studies 06/30/18 20:30 Blood Culture - Preliminary Blood-Venous NO GROWTH AFTER 3 DAYS 06/30/18 20:15 Blood Culture - Preliminary Blood-Venous NO GROWTH AFTER 3 DAYS Lab Studies 07/04/18 07/04/18 07/04/18 Range/Units 06:20 06:20 05:05 WBC 14.5 H D (4.5-11.0) 10^3/uL RBC 3.67 (3.5-6.1) 10^6/uL Hgb 10.9 L (14.0-18.0) g/dL Hct 37.0 L (42.0-52.0) % MCV 100.8 (80.0-105.0) fl MCH 29.7 (25.0-35.0) pg MCHC 29.5 L (31.0-37.0) g/dl RDW 14.1 (11.5-14.5) % Plt Count 217 (120.0-450.0) 10^3/uL MPV 9.8 (7.0-11.0) fl Gran % 92.3 H (50.0-68.0) % Lymph % (Auto) 4.6 L (22.0-35.0) % Garrard % (Auto) 3.1 (1.0-6.0) % Eos % (Auto) 0.0 L (1.5-5.0) % Baso % (Auto) 0.0 (0.0-3.0) % Gran # 13.37 H (1.4-6.5) Lymph # (Auto) 0.7 L (1.2-3.4) Garrard # (Auto) 0.5 (0.1-0.6) Eos # (Auto) 0.0 (0.0-0.7) Baso # (Auto) 0.00 (0.0-2.0) K/mm3 pCO2 97 H* (35-45) mm/Hg pO2 102.0 H (80-100) mm/Hg HCO3 58.7 H* (21-28) mmol/L ABG pH 7.39 (7.35-7.45) ABG Total CO2 61.7 H (22-28) mmol.L ABG O2 Saturation 99.0 H (95-98) % ABG O2 Content 14.7 L (15-23) ML/dl ABG Base Excess 28.6 H (-2.0-3.0) mmol/L ABG Hemoglobin 10.8 L (11.7-17.4) g/dL ABG Carboxyhemoglobin 2.3 H (0.5-1.5) % POC ABG HHb (Measured) 1.0 (0-5) % ABG Methemoglobin 0.7 (0.0-3.0) % ABG O2 Capacity 14.8 L (16-24) mL/dl Hgb O2 Saturation 96.0 (95.0-98.0) % FiO2 50.0 % Sodium 139 (132-148) mmol/L Potassium 3.3 L (3.6-5.0) mmol/L Chloride 82 L (98-107) mmol/L Carbon Dioxide 51 H (21-33) mmol/L Anion Gap 9 L (10-20) BUN 61 H (7-21) mg/dL Creatinine 1.2 (0.8-1.5) mg/dl Est GFR ( Amer) > 60 Est GFR (Non-Af Amer) 58 Random Glucose 123 H (70-110) mg/dL Calcium 9.7 (8.4-10.5) mg/dL Total Bilirubin 0.8 (0.2-1.3) mg/dL AST 44 (17-59) U/L ALT 55 (7-56) U/L Alkaline Phosphatase 87 (38-126) U/L Total Protein 6.8 (5.8-8.3) g/dL Albumin 3.5 (3.0-4.8) g/dL Globulin 3.3 gm/dL Albumin/Globulin Ratio 1.1 (1.1-1.8) Laboratory Results - last 24 hr 07/04/18 07/04/18 07/04/18 05:05 06:20 06:20 WBC 14.5 H D RBC 3.67 Hgb 10.9 L Hct 37.0 L MCV 100.8 MCH 29.7 MCHC 29.5 L RDW 14.1 Plt Count 217 MPV 9.8 Gran % 92.3 H Lymph % (Auto) 4.6 L [place] % (Auto) 3.1 Eos % (Auto) 0.0 L Baso % (Auto) 0.0 Gran # 13.37 H Lymph # (Auto) 0.7 L Garrard # (Auto) 0.5 Eos # (Auto) 0.0 Baso # (Auto) 0.00 pCO2 97 H* pO2 102.0 H HCO3 58.7 H* ABG pH 7.39 ABG Total CO2 61.7 H ABG O2 Saturation 99.0 H ABG O2 Content 14.7 L ABG Base Excess 28.6 H ABG Hemoglobin 10.8 L ABG Carboxyhemoglobin 2.3 H POC ABG HHb (Measured) 1.0 ABG Methemoglobin 0.7 ABG O2 Capacity 14.8 L Hgb O2 Saturation 96.0 FiO2 50.0 Sodium 139 Potassium 3.3 L Chloride 82 L Carbon Dioxide 51 H Anion Gap 9 L BUN 61 H Creatinine 1.2 Est GFR ( Amer) > 60 Est GFR (Non-Af Amer) 58 Random Glucose 123 H Calcium 9.7 Total Bilirubin 0.8 AST 44 ALT 55 Alkaline Phosphatase 87 Total Protein 6.8 Albumin 3.5 Globulin 3.3 Albumin/Globulin Ratio 1.1 Radiology Impressions: Radiology Impressions Chest X-Ray 07/04/18 06:00 IMPRESSION: Little interval change in known congestive heart failure. Critical Care Progress Note - Nutrition Nutrition: Nutrition Category Date Time Status Heart Healthy Diet [DIET] Diets 07/01/18 Lunch Active Assessment/Plan - Assessment and Plan (Free Text) Assessment: This is an 83 year old male with PMH of CAD s/p CANG, COPD on home oxygen 3L, CHF, MVP s/p surgery and PPM who presented to the hospital on 06/30/18 for weakness and drooling and found to have an oxygen saturation of 60%. Patient noted to have primary chronic respiratory acidosis on initial ABG and CHF exacerbation with BNP of 8,000. Transfer to [facility] today. Plan: Neuro: -maintain normothermia -AAO x3, moving extremities spontaneously past midline -Head CT w/o contrast 06/30/18 showed no acute findings Cardio: -maintain MAP>65 -will monitor vitals including HR and BP closely -continue toprol 25 PO daily, norvasc 10 PO, lipitor, ASA -trops x2 WNL -Cardio on consult, Dr. Bronson Lungs: -SaO2 >90% -continue oxygen NC 3L -bipap at night and as needed -CXR today showed little interval change in known CHF. -continue brovana, pulmicort, prednisone 40mg daily -Pulm on consult, Dr. Jalloh Renal: -maintain euvolemia -avoid nephrotoxic agents, hypochloremia -replace electrolytes as needed -BUN/Cr 51/1.3, stopped NS today -ABG today reads pH/pCO2/bicarb of 7.7/39/97/51 significant for primary chronic respiratory acidosis with metabolic alkalosis Heme: -Hg today is 10.9 from 10.6 yesterday, will monitor -DVT ppx with heparin 5k q8 Endo: -maintain euglycemia ID: -WBC is 14.5 today likely from steroids, afebrile -blood culture negative for 3 days, MRSA not detected GI: -HHD -LFTs downtrending today -GI ppx with protonix Dispo: Transfer to tele Patient seen and case discussed with attending, Dr. Ward <Nazario Ward - Last Filed: 07/04/18 14:48> CCU Objective - Vital Signs / Intake & Output Vital Signs (Last 4 hours): Vital Signs Pulse 07/04/18 11:00 66 Intake and Output (Last 8hrs): Intake & Output 07/03/18 07/04/18 07/04/18 22:59 06:59 14:59 Intake Total 250 Output Total 550 1700 Balance -550 -1450 Intake: Oral 250 Output: Urine 550 1700 Urine, Voided 550 1700 - Medications Active Medications: Active Medications Generic Name Dose Route Start Last Admin Trade Name Freq PRN Reason Stop Dose Admin Amlodipine Besylate 10 mg 07/01/18 14:45 07/04/18 09:43 Norvasc PO 10 mg DAILY NUZHAT Administration Arformoterol Tartrate 15 mcg 07/03/18 08:00 07/04/18 07:25 Brovana IH 15 mcg [id number] NUZHAT Administration Aspirin 81 mg 07/01/18 10:00 07/04/18 09:43 Ecotrin PO 81 mg DAILY NUZHAT Administration Atorvastatin Calcium 20 mg 07/01/18 22:00 07/03/18 21:30 Lipitor PO 20 mg HS NUZHAT Administration Budesonide 0.5 mg 07/03/18 08:00 07/04/18 07:25 Pulmicort Respules IH 0.5 mg [id number] NUZHAT Administration Cholecalciferol 1,000 intlu 07/01/18 10:00 07/04/18 09:43 Vitamin D PO 1,000 intlu DAILY NUZHAT Administration Furosemide 40 mg 07/05/18 10:00 Lasix PO DAILY NUZHAT Heparin Sodium (Porcine) 5,000 units 07/03/18 14:00 07/04/18 13:53 Heparin SC 5,000 units Q8 NUZHAT Administration Protocol Metoprolol Succinate 25 mg 07/01/18 10:00 07/04/18 09:43 Toprol Xl PO 25 mg DAILY NUZHAT Administration Pantoprazole Sodium 20 mg 07/02/18 06:00 07/04/18 05:36 Protonix Ec Tab PO 20 mg 0600 NUZHAT Administration Paroxetine HCl 20 mg 07/01/18 10:00 07/04/18 09:43 Paxil PO 20 mg DAILY NUZHAT Administration Prednisone 40 mg 07/04/18 11:00 07/04/18 11:16 Prednisone Tab PO Not Given DAILY NUZHAT - Patient Studies Lab Studies: Microbiology Studies 06/30/18 20:30 Blood Culture - Preliminary Blood-Venous NO GROWTH AFTER 3 DAYS 06/30/18 20:15 Blood Culture - Preliminary Blood-Venous NO GROWTH AFTER 3 DAYS Lab Studies 07/04/18 07/04/18 07/04/18 Range/Units 06:20 06:20 05:05 WBC 14.5 H D (4.5-11.0) 10^3/uL RBC 3.67 (3.5-6.1) 10^6/uL Hgb 10.9 L (14.0-18.0) g/dL Hct 37.0 L (42.0-52.0) % MCV 100.8 (80.0-105.0) fl MCH 29.7 (25.0-35.0) pg MCHC 29.5 L (31.0-37.0) g/dl RDW 14.1 (11.5-14.5) % Plt Count 217 (120.0-450.0) 10^3/uL MPV 9.8 (7.0-11.0) fl Gran % 92.3 H (50.0-68.0) % Lymph % (Auto) 4.6 L (22.0-35.0) % Garrard % (Auto) 3.1 (1.0-6.0) % Eos % (Auto) 0.0 L (1.5-5.0) % Baso % (Auto) 0.0 (0.0-3.0) % Gran # 13.37 H (1.4-6.5) Lymph # (Auto) 0.7 L (1.2-3.4) Garrard # (Auto) 0.5 (0.1-0.6) Eos # (Auto) 0.0 (0.0-0.7) Baso # (Auto) 0.00 (0.0-2.0) K/mm3 pCO2 97 H* (35-45) mm/Hg pO2 102.0 H (80-100) mm/Hg HCO3 58.7 H* (21-28) mmol/L ABG pH 7.39 (7.35-7.45) ABG Total CO2 61.7 H (22-28) mmol.L ABG O2 Saturation 99.0 H (95-98) % ABG O2 Content 14.7 L (15-23) ML/dl ABG Base Excess 28.6 H (-2.0-3.0) mmol/L ABG Hemoglobin 10.8 L (11.7-17.4) g/dL ABG Carboxyhemoglobin 2.3 H (0.5-1.5) % POC ABG HHb (Measured) 1.0 (0-5) % ABG Methemoglobin 0.7 (0.0-3.0) % ABG O2 Capacity 14.8 L (16-24) mL/dl Hgb O2 Saturation 96.0 (95.0-98.0) % FiO2 50.0 % Sodium 139 (132-148) mmol/L Potassium 3.3 L (3.6-5.0) mmol/L Chloride 82 L (98-107) mmol/L Carbon Dioxide 51 H (21-33) mmol/L Anion Gap 9 L (10-20) BUN 61 H (7-21) mg/dL Creatinine 1.2 (0.8-1.5) mg/dl Est GFR ( Amer) > 60 Est GFR (Non-Af Amer) 58 Random Glucose 123 H (70-110) mg/dL Calcium 9.7 (8.4-10.5) mg/dL Total Bilirubin 0.8 (0.2-1.3) mg/dL AST 44 (17-59) U/L ALT 55 (7-56) U/L Alkaline Phosphatase 87 (38-126) U/L Total Protein 6.8 (5.8-8.3) g/dL Albumin 3.5 (3.0-4.8) g/dL Globulin 3.3 gm/dL Albumin/Globulin Ratio 1.1 (1.1-1.8) Laboratory Results - last 24 hr 07/04/18 07/04/18 07/04/18 05:05 06:20 06:20 WBC 14.5 H D RBC 3.67 Hgb 10.9 L Hct 37.0 L MCV 100.8 MCH 29.7 MCHC 29.5 L RDW 14.1 Plt Count 217 MPV 9.8 Gran % 92.3 H Lymph % (Auto) 4.6 L Garrard % (Auto) 3.1 Eos % (Auto) 0.0 L Baso % (Auto) 0.0 Gran # 13.37 H Lymph # (Auto) 0.7 L Garrard # (Auto) 0.5 Eos # (Auto) 0.0 Baso # (Auto) 0.00 pCO2 97 H* pO2 102.0 H HCO3 58.7 H* ABG pH 7.39 ABG Total CO2 61.7 H ABG O2 Saturation 99.0 H ABG O2 Content 14.7 L ABG Base Excess 28.6 H ABG Hemoglobin 10.8 L ABG Carboxyhemoglobin 2.3 H POC ABG HHb (Measured) 1.0 ABG Methemoglobin 0.7 ABG O2 Capacity 14.8 L Hgb O2 Saturation 96.0 FiO2 50.0 Sodium 139 Potassium 3.3 L Chloride 82 L Carbon Dioxide 51 H Anion Gap 9 L BUN 61 H Creatinine 1.2 Est GFR ( Amer) > 60 Est GFR (Non-Af Amer) 58 Random Glucose 123 H Calcium 9.7 Total Bilirubin 0.8 AST 44 ALT 55 Alkaline Phosphatase 87 Total Protein 6.8 Albumin 3.5 Globulin 3.3 Albumin/Globulin Ratio 1.1 Radiology Impressions: Radiology Impressions Chest X-Ray 07/04/18 06:00 IMPRESSION: Little interval change in known congestive heart failure. Critical Care Progress Note - Nutrition Nutrition: Nutrition Category Date Time Status Heart Healthy Diet [DIET] Diets 07/01/18 Lunch Active Assessment/Plan - Assessment and Plan (Free Text) Assessment: Patient seen and examined on rounds with resident, agree with note with following additions/exceptions Patient is 83yo male with PMHx of CAD s/p CABG, end stage COPD on home O2, HTN, ?dementia, admitted with chronic resp acidosis, hypercapnia with now normal pH Pulmonary following Pt is DNR/DNI as per familys request. Resp Acidosis, chronic compensated CAD s/p CABG COPD on home O2 HTN - currently afebrile, HD stable, comfortable in NAD, AAOx2 - ABG with CHRONIC resp acidosis, compensated, patient awake, alert, oriented, sat 95%, pH NORMAL Recommend: - cont with BIPAP only as needed, supp o2 as needed, goal sat 90%, duonebs PRN - follow up Pulmonary - Prednisone 40mg daily x 5 days - BP control - ASA - GI ppx - DVT ppx, HSQ - PT/OT - Monitor on MICU - Stable, transfer to telemetry Palliative care follow up DNR/DNI
[2018-07-04] MEDS: Cholecalciferol 1,000 INTLU TAB PO SCH (09:43)
[2018-07-04] MEDS: Metoprolol Succinate 25 mg XL Tab PO SCH (09:43)
[2018-07-04] MEDS ORDERED: Furosemide 40 mg/5 mL Oral Soln UD PO SCH ×2 (10:45)
[2018-07-04] MEDS: MethylPREDNISolone 40 mg Vial IVP SCH (11:01)
--- NOTE | 2018-07-04 11:15 | PN ---
DATE: 07/04/2018(700am-750am) SUBJECTIVE: The patient appears comfortable this morning. He is not short of breath at rest. He is mildly confused. PHYSICAL EXAMINATION: VITAL SIGNS: Last temperature recorded is 97.8, pulse of 63, respiratory rate 20, blood pressure 160/64. Oxygen saturation on nasal cannula is 95%-98%. HEENT: Normocephalic, atraumatic. NECK: No JVD. CARDIOVASCULAR: Systolic ejection murmur at the lower left sternal border. Positive S3 gallop. LUNGS: Minimal crackles at the bases. Minimal/less rhonchi. No wheezing. EXTREMITIES: Mild edema. No cyanosis, no clubbing. Calves are nontender to palpation. GASTROINTESTINAL: Abdomen is soft, nontender, nondistended. Bowel sounds are positive. SKIN: No acute rash. NEUROLOGIC: Exam limited at the present time. PERTINENT LABORATORY DATA: Chest x-ray was done this morning and reviewed. There is less pulmonary vascular congestion noted. Small bilateral pleural effusions persist. Arterial blood gas was done on BiPAP with 50% oxygen. Results are pH 7.39, pCO2 87, pO2 of 109. IMPRESSION: 1. Respiratory failure. 2. Acute congestive heart failure. 3. Advanced chronic obstructive pulmonary disease. 4. Mild anemia. PLAN: The patient appears comfortable this morning. He is not short of breath at rest. He does appear mildly confused. I did discuss the case with the night nurse at length. The night nurse stated the patient had an uneventful night overall. I did review the chest x-ray as above. The chest x-ray appears improved with decreased pulmonary vascular congestion. I have also reviewed the arterial blood gas. The arterial blood gas is also improved with resolution of the acidosis. The pCO2 remains very high. I did discuss the arterial blood gas with the medical intern. We will decrease the FiO2 with the BiPAP. The patient will be transitioned to nasal cannula this morning if he tolerates it. On physical exam, there is certainly less bronchospasm noted. I will continue the current nebulizer treatments and low-dose intravenous steroids for now. I would continue with the treatment for congestive heart failure as per Cardiology. Input by Dr. Friedman is noted. Clinical status of the patient is certainly improved - compared to the initial presentation. However, given the above, the future status/prognosis for this patient remains very guarded at best. I will discuss the above with the entire ICU team in the next few moments. I will also discuss the above with the attending physician later this morning. Clint Jalloh MD [facility]
--- NOTE | 2018-07-04 11:22 | CP.PCM.CON ---
History of Present Illness - History of Present Illness History of Present Illness: Palliative consult requested by Dr Sarina Michael Reason: Goals of care 83 year old male with history of CAD, COPD who was brought to the ED on 06/30 with AMS, weakness. He was found to be in respiratory failure and transferred to the ICU where he was placed on BIPAP. Head CT negative for acute intracranial abnormalities. Chest x rays stable CHF. PMHx: aortic stenosis, mitral valve disease,SD, COPD,CHF, HTN, HLD, CVA, kyphoscoliosis, GI bleed. 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 Lives with his daughter. Family History: Non contributory Advance Care Planning: The patient has a POLST. He is DNR/DNI. Review of Systems - Review of Systems All systems: reviewed and no additional remarkable complaints except Review of Systems: weakness, difficulty ambulating, mild shortness of breath Past Patient History - Infectious Disease Hx of Infectious Diseases: None - Tetanus Immunizations Tetanus Immunization: Unknown - Past Social History Smoking Status: Former Smoker - CARDIAC Hx Cardiac Disorders: Yes Hx Congestive Heart Failure: Yes Hx Hypercholesterolemia: Yes Hx Hypertension: Yes Hx Pacemaker: Yes Hx Peripheral Edema: Yes Hx Peripheral Vascular Disease: Yes - PULMONARY Hx Respiratory Disorders: Yes (SMOKED CIGARETTES H/O PPD) Hx Chronic Obstructive Pulmonary Disease (COPD): Yes (O2 dependent) Hx Pneumonia: Yes (2x since ) - NEUROLOGICAL HX Cerebrovascular Accident: Yes - HEENT Hx HEENT Problems: No - ENDOCRINE/METABOLIC Hx Endocrine Disorders: No - HEMATOLOGICAL/ONCOLOGICAL Hx Blood Disorders: No - INTEGUMENTARY Hx Dermatological Problems: No - MUSCULOSKELETAL/RHEUMATOLOGICAL Hx Falls: Yes - GASTROINTESTINAL Hx Gastrointestinal Disorders: Yes (HERNIORHAPPY,GERD,DIVERTICULITIS,GI BLEED,CONSTIPATION) - GENITOURINARY/GYNECOLOGICAL Hx Genitourinary Disorders: Yes (URINARY FREQUENCY) - PSYCHIATRIC Hx Psychophysiologic Disorder: Yes (ETOH -DRINKS SOCIALLY,SMOPKED PPD H/O) Hx Depression: Yes Hx Emotional Abuse: No Hx Physical Abuse: No Hx Substance Use: No - SURGICAL HISTORY Hx Cardiac Catheterization: Yes Hx Open Heart Surgery: Yes - ANESTHESIA Hx Anesthesia: No Meds Allergies/Adverse Reactions: Allergies Allergy/AdvReac Type Severity Reaction Status Date / Time No Known Allergies Allergy Verified 06/30/18 19:57 - Medications Medications: Current Medications Amlodipine Besylate (Norvasc) 10 mg PO DAILY [facility] Last Admin: 07/04/18 09:43 Dose: 10 mg Arformoterol Tartrate (Brovana) 15 mcg IH [id number] [facility] Last Admin: 07/04/18 07:25 Dose: 15 mcg Aspirin (Ecotrin) 81 mg PO DAILY [facility] Last Admin: 07/04/18 09:43 Dose: 81 mg Atorvastatin Calcium (Lipitor) 20 mg PO HS [facility] Last Admin: 07/03/18 21:30 Dose: 20 mg Budesonide (Pulmicort Respules) 0.5 mg IH [id number] [facility] Last Admin: 07/04/18 07:25 Dose: 0.5 mg Cholecalciferol (Vitamin D) 1,000 intlu PO DAILY [facility] Last Admin: 07/04/18 09:43 Dose: 1,000 intlu Furosemide (Lasix) 40 mg PO DAILY [facility] Heparin Sodium (Porcine) (Heparin) 5,000 units SC Q8 [facility]; Protocol Last Admin: 07/04/18 05:36 Dose: 5,000 units Metoprolol Succinate (Toprol Xl) 25 mg PO DAILY [facility] Last Admin: 07/04/18 09:43 Dose: 25 mg Pantoprazole Sodium (Protonix Ec Tab) 20 mg PO 0600 [facility] Last Admin: 07/04/18 05:36 Dose: 20 mg Paroxetine HCl (Paxil) 20 mg PO DAILY [facility] Last Admin: 07/04/18 09:43 Dose: 20 mg Prednisone (Prednisone Tab) 40 mg PO DAILY [facility] Physical Exam - Constitutional Appears: Chronically Ill - Head Exam Head Exam: NORMOCEPHALIC - Eye Exam Eye Exam: Normal appearance, PERRL - ENT Exam ENT Exam: Mucous Membranes Moist - Neck Exam Neck exam: Positive for: Normal Inspection - Respiratory Exam Respiratory Exam: Decreased Breath Sounds, Rhonchi - Cardiovascular Exam Cardiovascular Exam: Tachycardia, +S1, +S2 Additional comments: pacemaker - GI/Abdominal Exam GI & Abdominal Exam: Normal Bowel Sounds, Soft - Extremities Exam Additional comments: lwer extremities edematous, PVD - Neurological Exam Neurological exam: Alert - Skin Skin Exam: Dry, Pallor - Additional Findings Additional findings: Palliative performance scale rating 30% Results - Vital Signs Recent Vital Signs: Last Vital Signs Temp 97.8 F 07/03/18 04:00 Pulse 68 01/15/19 09:43 Resp 57 H 07/03/18 17:20 BP 155/68 H 07/04/18 09:44 Pulse Ox 75 L 07/03/18 17:20 - Labs Result Diagrams: 07/04/18 06:20 07/04/18 06:20 Labs: Laboratory Results - last 24 hr 07/04/18 07/04/18 07/04/18 05:05 06:20 06:20 WBC 14.5 H D RBC 3.67 Hgb 10.9 L Hct 37.0 L MCV 100.8 MCH 29.7 MCHC 29.5 L RDW 14.1 Plt Count 217 MPV 9.8 Gran % 92.3 H Lymph % (Auto) 4.6 L [place] % (Auto) 3.1 Eos % (Auto) 0.0 L Baso % (Auto) 0.0 Gran # 13.37 H Lymph # (Auto) 0.7 L [place] # (Auto) 0.5 Eos # (Auto) 0.0 Baso # (Auto) 0.00 pCO2 97 H* pO2 102.0 H HCO3 58.7 H* ABG pH 7.39 ABG Total CO2 61.7 H ABG O2 Saturation 99.0 H ABG O2 Content 14.7 L ABG Base Excess 28.6 H ABG Hemoglobin 10.8 L ABG Carboxyhemoglobin 2.3 H POC ABG HHb (Measured) 1.0 ABG Methemoglobin 0.7 ABG O2 Capacity 14.8 L Hgb O2 Saturation 96.0 FiO2 50.0 Sodium 139 Potassium 3.3 L Chloride 82 L Carbon Dioxide 51 H Anion Gap 9 L BUN 61 H Creatinine 1.2 Est GFR ( Amer) > 60 Est GFR (Non-Af Amer) 58 Random Glucose 123 H Calcium 9.7 Total Bilirubin 0.8 AST 44 ALT 55 Alkaline Phosphatase 87 Total Protein 6.8 Albumin 3.5 Globulin 3.3 Albumin/Globulin Ratio 1.1 Assessment & Plan - Assessment and Plan (Free Text) Assessment: 83 year old male with history of , s/p valve replacement, MS, CAD, CHF,HTN, COPD who was admitted with respiratory failure, CHF exacerbation,deconditioning. The patient is alert, forgetful at times, able to follow simple commands. I spoke with patients daughter Naheed via phone. I explained that I was with Palliative services and would like to discuss goals of care regarding he father. She understands that her father has end stage heart disease and affirmed that he is DNR/DNI. She states her father has been managing for himself during the day while she and her work. I explained that his condition would continue to decline and that he may not be able to be left alone. I asked if the family wanted to continue to treat him aggressively. She stated that she has been thinking about this situation and would prefer to be less aggressive. I explained that there were a few options for care which could be discussed, including hospice. I offered for myself and Davion ZAMORA to meet with her but she is unavailable due to work. A phone conference with myself, Ms Mendoza and Naheed is scheduled for tomorrow Time spent with daughter in goals of care discussion, 20 minutes Plan: Goals of care Cardiology recs reviewed, continue Lasix, Norvasc, Toprol Pulmonary, Continue bronchodilators, steroid. Leukocytosis: [place] cultures negative, steroid induced DVT prophylaxis
[2018-07-04] MEDS ORDERED: Potassium Chloride 20 mEq ER Tab PO STA (11:28)
--- NOTE | 2018-07-04 12:09 | PN ---
DATE: 07/04/2018 SUBJECTIVE: An 83-year-old white male, seen in the ICU, bed 4. The patient is still severely lethargic and confused. He is at times tolerating his BiPAP. BUN and creatinine were up to 61 and 1.2. His bicarb is 51. His hemoglobin is 12.9, white count is 14.500. The patient has cough with sputum production. PHYSICAL EXAMINATION GENERAL: He is afebrile. He is awake, but somewhat lethargic. VITAL SIGNS: Stable. LUNGS: He has chronic rales bilaterally and rhonchi bilaterally. HEART: Regular sinus rhythm. EXTREMITIES: Patient's extremities has less swelling in legs this morning. DIAGNOSTIC DATA: He had a repeat chest x-ray done today. Last chest x-ray just showed severe kyphoscoliosis and cardiogenic pulmonary edema. PLAN: Plan is to continue pulmonary toilet, if possible, with repeat chest x-ray, if possible. Started antibiotics and BiPAP as necessary. Ramy Michael MD
--- NOTE | 2018-07-04 13:56 | CP.PCM.APN ---
Subjective - Date & Time of Evaluation Date of Evaluation: 07/04/18 Time of Evaluation: 13:00 - Subjective Subjective: Pt. seen sitting up in bed, states breathing better , currently on O2 nasal cannula, asking when can go home. Denied chest pain, dizziness.Swelling noted to left arm, +2 edema noted to Lower legs b/l. Review of Systems - Constitutional Constitutional: As Per HPI - Cardiovascular Cardiovascular: Leg Edema - Gastrointestinal Gastrointestinal: As Per HPI - Genitourinary Genitourinary: As Per HPI - Musculoskeletal Musculoskeletal: As Per HPI - Integumentary Integumentary: As Per HPI - Neurological Neurological: As Per HPI - Endocrine Endocrine: As Per HPI - Hematologic/Lymphatic Hematologic: As Per HPI Objective - Vital Signs/Intake and Output Vital Signs (last 24 hours): Temp Pulse Resp BP Pulse Ox 97.8 F 66 57 H 155/68 H 75 L 07/03/18 04:00 07/04/18 11:00 07/03/18 17:20 07/04/18 09:44 07/03/18 17:20 Intake and Output: 07/04/18 07/04/18 06:59 18:59 Intake Total 250 Output Total 1700 Balance -1450 - Medications Medications: Current Medications Amlodipine Besylate (Norvasc) 10 mg PO DAILY [facility] Last Admin: 07/04/18 09:43 Dose: 10 mg Arformoterol Tartrate (Brovana) 15 mcg IH [id number] [facility] Last Admin: 07/04/18 07:25 Dose: 15 mcg Aspirin (Ecotrin) 81 mg PO DAILY [facility] Last Admin: 07/04/18 09:43 Dose: 81 mg Atorvastatin Calcium (Lipitor) 20 mg PO HS [facility] Last Admin: 07/03/18 21:30 Dose: 20 mg Budesonide (Pulmicort Respules) 0.5 mg IH [id number] [facility] Last Admin: 07/04/18 07:25 Dose: 0.5 mg Cholecalciferol (Vitamin D) 1,000 intlu PO DAILY [facility] Last Admin: 07/04/18 09:43 Dose: 1,000 intlu Furosemide (Lasix) 40 mg PO DAILY [facility] Heparin Sodium (Porcine) (Heparin) 5,000 units SC Q8 [facility]; Protocol Last Admin: 07/04/18 05:36 Dose: 5,000 units Metoprolol Succinate (Toprol Xl) 25 mg PO DAILY [facility] Last Admin: 07/04/18 09:43 Dose: 25 mg Pantoprazole Sodium (Protonix Ec Tab) 20 mg PO 0600 [facility] Last Admin: 07/04/18 05:36 Dose: 20 mg Paroxetine HCl (Paxil) 20 mg PO DAILY [facility] Last Admin: 07/04/18 09:43 Dose: 20 mg Prednisone (Prednisone Tab) 40 mg PO DAILY [facility] Last Admin: 07/04/18 11:16 Dose: Not Given - Labs Labs: 07/04/18 06:20 07/04/18 06:20 PT 12.6 SECONDS (9.4-12.5) H 06/30/18 20:24 INR 1.10 06/30/18 20:24 APTT 29.9 Seconds (25.1-36.5) 06/30/18 20:24 - Head Exam Head Exam: NORMAL INSPECTION, NORMOCEPHALIC - Eye Exam Eye Exam: Normal appearance - ENT Exam ENT Exam: Mucous Membranes Moist, Normal Exam - Neck Exam Neck Exam: Full ROM - Respiratory Exam Respiratory Exam: Clear to Ausculation Bilateral, NORMAL BREATHING PATTERN - Cardiovascular Exam Cardiovascular Exam: REGULAR RHYTHM, +S1, +S2 - GI/Abdominal Exam GI & Abdominal Exam: Soft - Rectal Exam Rectal Exam: Deferred - Extremities Exam Extremities Exam: Full ROM Additional comments: + 2 b/l lower extremity edema noted - Back Exam Back Exam: Full ROM, NORMAL INSPECTION - Neurological Exam Neurological Exam: Alert, Awake - Psychiatric Exam Psychiatric exam: Normal Affect, Normal Mood - Skin Skin Exam: Dry, Intact, Normal Color, Warm Assessment and Plan - Assessment and Plan (Free Text) Assessment: 07/04/18 07/04/18 06:59 18:59 Intake Total 250 Output Total 1700 Balance -1450 Impressions Chest X-Ray 07/04/18 06:00 IMPRESSION: Little interval change in known congestive heart failure Assessment/Plan: 83 year old male with history of , s/p valve replacment, MS, CAD, CHF,HTN, COPD who was admitted with respiratory failure, CHF exacerbation, with marked CO retention, respiratory acidosis. 1. CHF- acute with combined systolic and diastolic heart failure. - Improved, continue Lasix, now on PO as per cardiology, continue diuresis . 2. Deconditioning r/t CHF PT eval pending Patient awaiting transfer to telemetry. Will continue to monitor clinical status and follow closely. Will discuss with consultants.
[2018-07-04] MEDS: POLYETHYLENE GLYCOL 3350 17 GM/Dose PACKET PO SCH (17:37)
--- NOTE | 2018-07-04 23:01 | PN ---
DATE: 07/04/2018 SUBJECTIVE: The patient is sitting in a chair in the ICU. He feels somewhat better. He is currently off BiPAP. He just continued to feel somewhat weak, however. His potassium is only 3.3 and his bicarbonate has risen to 51. MEDICATIONS: His current medications include Brovana, Ecotrin, subcutaneous heparin, Lasix 40 mg orally daily, Lipitor 20 mg daily, MiraLax, Norvasc, Paxil, prednisone, Protonix, Toprol XL, Pulmicort. OBJECTIVE: GENERAL: He is an elderly man who appears somewhat frail. VITAL SIGNS: His blood pressure is 156/68 with a pulse of 60 with ventricular pacing, respirations are 16. He is afebrile. HEENT: No JVD. CHEST: Bilateral scattered rhonchi and rales noted at the bases. HEART: PMI displaced laterally with systolic murmur at the left sternal border and apex. ABDOMEN: Soft. Nontender. Normoactive bowel sounds. EXTREMITIES: Reveal diminished edema. DIAGNOSTIC DATA: Potassium 3.3, BUN and creatinine are 61 and 1.2, bicarbonate is 51. White count 14.5, hemoglobin and hematocrit 10.9 and 37 with platelet count of 217,000. Arterial blood gas revealed pH 7.39, pCO2 of 97, and pO2 of 102. IMPRESSION: 1. Recent respiratory failure, likely multifactorial given severe chronic obstructive pulmonary disease, restrictive lung disease, hypercarbia, congestive heart failure. Known coronary artery disease, status post remote myocardial fraction, and percutaneous coronary intervention. 2. History of aortic stenosis, status post aortic valve replacement. Rest of problems as noted. RECOMMENDATIONS: Potassium supplement should be given to correct his potassium as well as to counter balance to some degree as metabolic alkalosis although this in large part is compensatory for his severe respiratory acidosis. Sodium restriction is advised. The patient should remain out of bed. Oral intake should increase as tolerated. If is stable, transfer is fine. Telemetry later today will be reasonable. We will continue to follow and make recommendation as appropriate. Chinedu Friedman MD
[2018-07-05] MEDS: Pantoprazole 20 mg EC Tab PO SCH (05:19)
[2018-07-05 06:57] LABS: GRAN # 9.39 (1.4-6.5); GRAN % 85.5 % (50.0-68.0); HEMOGLOBIN 11.3 g/dL (14.0-18.0); LYMPH # 0.9 (1.2-3.4); LYMPH % 8.1 % (22.0-35.0); MEAN CELL VOLUME 103.9 fl (80.0-105.0); MEAN CORPUSCULAR HEMOGLOBIN 29.3 pg (25.0-35.0); MEAN CORPUSCULAR HGB CONC 28.2 g/dl (31.0-37.0); MEAN PLATELET VOLUME 10.3 fl (7.0-11.0); MONO # 0.7 (0.1-0.6); MONO % 6.4 % (1.0-6.0); RBC 3.86 10^6/uL (3.5-6.1); RED CELL DISTRIBUTION WIDTH 14.3 % (11.5-14.5)
[2018-07-05 07:17] LABS: ALB/GLOB RATIO 1.1 (1.1-1.8); ALBUMIN 3.6 g/dL (3.0-4.8); ALT/SGPT 51 U/L (7-56); AST/SGOT 44 U/L (17-59); BLOOD UREA NITROGEN 60 mg/dL (7-21); CALCIUM 9.9 mg/dL (8.4-10.5); GFR NON-AFRICAN AMERICAN 53
--- NOTE | 2018-07-05 08:46 | PN ---
DATE: 07/05/2018(700AM-800AM) SUBJECTIVE: The patient appears comfortable this morning. He is not short of breath at rest. PHYSICAL EXAMINATION: VITAL SIGNS: Temperature is 98, pulse 70, respirations 20, blood pressure 152/54. Oxygen saturation on nasal cannula is 95%. HEENT: Normocephalic, atraumatic. No JVD. CARDIOVASCULAR: Systolic ejection murmur at the lower left sternal border. Positive S3 gallop. LUNGS: Less crackles at the bases. Less rhonchi. No wheezing. EXTREMITIES: Mild edema. No cyanosis, no clubbing. Calves are nontender to palpation. GASTROINTESTINAL: Abdomen is soft, nontender and nondistended. Bowel sounds are positive. SKIN: No acute rash. NEUROLOGIC: Exam limited at the present time. PERTINENT LABORATORY DATA: Chest x-ray was done this morning and reviewed. The chest x-ray is similar to yesterday's film, but overall improved. Official results are pending. Arterial blood gas was ordered for the morning - pending. IMPRESSION: 1. Respiratory failure. 2. Acute congestive heart failure. 3. Advanced chronic obstructive pulmonary disease. 4. Mild anemia. PLAN: The patient appears comfortable this morning. He is not short of breath at rest. He does remain mildly confused. He does state to feeling better overall. I did discuss the case with the night nurse at length. The night nurse stated that the patient had an uneventful night. I did review the chest x-ray as above. The chest x-ray is similar to yesterday's film, but is improved from the initial films. I have also ordered an arterial blood gas. The results are pending. They will certainly call me with the results. On physical exam, there is no significant bronchospasm noted. In addition, there is no significant alveolar-arterial gradient. I will continue the current nebulizer treatments for now. The patient also remains on oral prednisone. I would continue with the treatment for congestive heart failure as per Cardiology. Input by Dr. Friedman is noted. Clinical status of the patient is significantly improved - compared to his initial presentation. However, given the above, the future status/prognosis for this patient does remain very guarded. I will discuss the above with the entire ICU team in the next few moments. I will also discuss the above with the attending physician later this morning. Clint Jalloh MD [facility] # [id number] LUCY
[2018-07-05] MEDS: Arformoterol 15 mcg/2 ml Inh Sol IH SCH ×2 (08:47→21:31)
[2018-07-05] MEDS: Budesonide 0.5 mg/2 ml Inhal Susp UD IH SCH ×2 (08:47→21:31)
[2018-07-05] MEDS: Metoprolol Succinate 25 mg XL Tab PO SCH (09:35)
[2018-07-05] MEDS: POLYETHYLENE GLYCOL 3350 17 GM/Dose PACKET PO SCH (09:39)
[2018-07-05] MEDS: Cholecalciferol 1,000 INTLU TAB PO SCH (09:40)
[2018-07-05] MEDS ORDERED: Furosemide 40 mg/5 mL Oral Soln UD PO SCH (10:00)
--- NOTE | 2018-07-05 10:50 | RAD ---
Date of service: 07/05/2018 HISTORY: f/u COMPARISON: 07/04/2018 FINDINGS: LUNGS: CHF with bibasilar infiltrates and effusions and pulmonary vascular congestion unchanged PLEURA: As above CARDIOVASCULAR: Aortic calcifications seen Moderate cardiomegaly OSSEOUS STRUCTURES: No significant abnormalities. VISUALIZED UPPER ABDOMEN: Normal. OTHER FINDINGS: None. IMPRESSION: CHF with bibasilar infiltrates and effusions and pulmonary vascular congestion unchanged
[2018-07-05 11:16] LABS: ARTERIAL BLOOD GAS HCO3 64.2 mmol/L (21-28); ARTERIAL BLOOD GAS O2 CONTENT 14.7 ML/dl (15-23); ARTERIAL BLOOD GAS O2 SAT 97.9 % (95-98); ARTERIAL BLOOD GAS PCO2 99 mm/Hg (35-45); ARTERIAL BLOOD GAS PH 7.42 (7.35-7.45); ARTERIAL BLOOD GAS TCO2 67.2 mmol.L (22-28)
--- NOTE | 2018-07-05 11:19 | PN ---
DATE: 07/05/2018 SUBJECTIVE: The patient is seen lying in bed in the CCU. He is comfortable at rest. He is complaining of thirst and hunger. CURRENT MEDICATIONS: His current medications include Brovana, Ecotrin, subcutaneous heparin, Lasix 40 mg daily, Lipitor 20 mg daily, Miralax, Norvasc 10 mg daily, Paxil 20 mg daily, prednisone 40 mg daily, Protonix, Pulmicort, Toprol XL 25 mg daily. OBJECTIVE: GENERAL: He is an elderly man who appears comfortable at the present time but somewhat anxious. VITAL SIGNS: His blood pressure is 148/50 with a pulse of 66. He has ventricular pacing with underlying atrial flutter, respirations are 16. He is afebrile. NECK: No JVD. CHEST: Bilateral coarse rhonchi with diminished breath sounds at the bases. HEART: PMI displaced laterally with systolic murmur at the left sternal border. ABDOMEN: Soft, nontender, normoactive bowel sounds. EXTREMITIES: Trace ankle edema. DIAGNOSTIC DATA: Potassium 3.6, BUN and creatinine are 60 and 1.3 with a bicarbonate of 56, hemoglobin and hematocrit are 11.3 and 40.1, platelet count 211,000. White count 11.0. IMPRESSION: 1. Chest x-ray reveals persistent bilateral effusions and chronic congestive changes. 2. Recent respiratory failure due to combination of advanced chronic obstructive pulmonary disease, restrictive lung disease, congestive heart failure, and hypercarbia. 3.. Known coronary disease status remote percutaneous coronary intervention of his right coronary artery. 4. History aortic stenosis status post aortic valve replacement with evidence of mild prosthetic valve stenosis. 5. Conduction system disease status post permanent pacemaker implant. 6. Paroxysmal atrial flutter. 7. Respiratory acidosis with compensatory metabolic alkalosis. 8. Rest of problems as noted. RECOMMENDATIONS: Current management will continue for now. Anticoagulation with an oral agent is advised at this time given his persistent atrial flutter. His subcutaneous heparin will be discontinued and oral Eliquis will be added for now. A DNR/DNI order is in place. From a cardiac standpoint, he appears stable for transfer to telemetry at this time. We will continue to follow and make further things as appropriate. Chinedu Friedman MD [facility] # [id number]
--- NOTE | 2018-07-05 11:46 | PN ---
DATE: 07/05/2018 SUBJECTIVE: An 83-year-old white male seen in the ICU. The patient has been using BiPAP at night. He does have an arising BUN and creatinine, now 60 and 1.3. His bicarb is 56. He has severe respiratory acidosis with metabolic alkalosis and compensation. His blood sugar is 96. His potassium is 3.6. His white count is stable at 11 and his hemoglobin is 11.3. The patient has kyphoscoliosis, severe; pulmonary hypertension; chronic shortness of breath; chronic use of continuous oxygen at home. The patient is DNR/DNI by the family. He was seen on consultation with Gabi Davidson, for palliative care, family is aware. The patient's case is also discussed with Dr. Friedman this morning. He is end-stage, we will him comfortable as much as possible. Continue treat his electrolytes aggressively and continue BiPAP as tolerated. PHYSICAL EXAMINATION: GENERAL: A well developed thin white male in mild distress. HEENT HEART: Rate is regular with systolic ejection murmur at left sternal border and also diastolic murmur. CHEST: Decreased breath sounds with severe kyphoscoliosis and rhonchi at both bases. EXTREMITIES: Show less edema and less erythema. Ramy Michael MD
--- NOTE | 2018-07-05 12:58 | CP.PCM.APN ---
Subjective - Date & Time of Evaluation Date of Evaluation: 07/05/18 Time of Evaluation: 12:25 - Subjective Subjective: Pt. seen and examined at bedside, appears very lethargic, arousable, RR unlabored on 4 liter oxygen, unable to answer questions, due to lethargy. Review of Systems - Constitutional Constitutional: As Per HPI - EENT Eyes: absent: As Per HPI, Blind Spots, Blurred Vision, Change in Vision, Decreased Night Vision, Diplopia, Discharge, Dry Eye, Exophthalmos, Floaters, Irritation, Itchy Eyes, Loss of Peripheral Vision, Pain, Photophobia, Requires Corrective Lenses, Sees Flashes, Spots in Vision, Tunnel Vision, Other Visual Disturbances, Loss of Vision, Other Ears: absent: As Per HPI, Decreased Hearing, Ear Discharge, Ear Pain, Tinnitus, Abnormal Hearing, Disequilibrium, Dizziness, Other Nose/Mouth/Throat: absent: As Per HPI, Epistaxis, Nasal Congestion, Nasal Discharge, Nasal Obstruction, Nasal Trauma, Nose Pain, Post Nasal Drip, Sinus Pain, Sinus Pressure, Bleeding Gums, Change in Voice, Dental Pain, Dry Mouth, Dysphagia, Halitosis, Hoarsness, Lip Swelling, Mouth Lesions, Mouth Pain, Odynophagia, Sore Throat, Throat Swelling, Tongue Swelling, Facial Pain, Neck Pain, Neck Mass, Other - Cardiovascular Cardiovascular: absent: As Per HPI, Acrocyanosis, Chest Pain, Chest Pain at Rest, Chest Pain with Activity, Claudication, Diaphoresis, Dyspnea, Dyspnea on Exertion, Edema, Irregular Heart Rhythm, Pain Radiating to Arm/Neck/Jaw, Leg Edema, Leg Ulcers, Lightheadedness, Orthopnea, Palpitations, Paroxysmal Nocturnal Dyspnea, Pedal Edema, Radiating Pain, Rapid Heart Rate, Slow Heart Rate, Syncope, Other - Gastrointestinal Gastrointestinal: absent: As Per HPI, Abdominal Pain, Belching, Bloating, Change in Bowel Habits, Change in Stool Character, Coffee Ground Emesis, Constipation, Cramping, Diarrhea, Dyspepsia, Dysphagia, Early Satiety, Excessive Flatus, Fecal Incontinence, Heartburn, Hematemesis, Hematochezia, Loose Stools, Melena, Nausea, Odynophagia, Temesmus, Vomiting, Other - Genitourinary Genitourinary: absent: As Per HPI, Change in Urinary Stream, Difficulty Urinating, Dysuria, Flank Pain, Hematuria, Pyuria, Nocturia, Urinary Incontinen ce, Urinary Frequency, Urinary Hesitance, Urinary Urgency, Voiding Freq/Small Amts, Freq UTI, Hx Renal/Bladder Calculi, Hx /Renal Surgery, Bladder Distension, Other - Musculoskeletal Musculoskeletal: absent: As Per HPI, Abnormal Gait, Arthralgias, Atrophy, Back Pain, Deformity, Joint Swelling, Limited Range of Motion, Loss of Height, Muscle Cramps, Muscle Weakness, Myalgias, Neck Pain, Numbness, Radiating Pain into Limb, Stiffness, Tingling, Other - Neurological Neurological: Weakness Objective - Vital Signs/Intake and Output Vital Signs (last 24 hours): Temp Pulse Resp BP Pulse Ox 99 F 60 25 H 145/63 90 L 07/05/18 07:00 07/05/18 12:17 07/05/18 12:17 07/05/18 12:00 07/05/18 07:00 Intake and Output: 07/05/18 07/05/18 06:59 18:59 Intake Total 480 Output Total 650 Balance -170 - Medications Medications: Current Medications Amlodipine Besylate (Norvasc) 10 mg PO DAILY [facility] Last Admin: 07/05/18 10:24 Dose: 10 mg Apixaban (Eliquis) 5 mg PO BID [facility]; Protocol Arformoterol Tartrate (Brovana) 15 mcg IH [id number] [facility] Last Admin: 07/05/18 08:47 Dose: 15 mcg Aspirin (Ecotrin) 81 mg PO DAILY [facility] Last Admin: 07/05/18 09:39 Dose: 81 mg Atorvastatin Calcium (Lipitor) 20 mg PO HS [facility] Last Admin: 07/04/18 22:25 Dose: 20 mg Budesonide (Pulmicort Respules) 0.5 mg IH [id number] [facility] Last Admin: 07/05/18 08:47 Dose: 0.5 mg Cholecalciferol (Vitamin D) 1,000 intlu PO DAILY [facility] Last Admin: 07/05/18 09:40 Dose: 1,000 intlu Furosemide (Lasix) 40 mg PO DAILY [facility] Last Admin: 07/05/18 09:55 Dose: 40 mg Metoprolol Succinate (Toprol Xl) 50 mg PO DAILY [facility] Pantoprazole Sodium (Protonix Ec Tab) 20 mg PO 0600 [facility] Last Admin: 07/05/18 05:19 Dose: 20 mg Paroxetine HCl (Paxil) 20 mg PO DAILY [facility] Last Admin: 07/05/18 09:35 Dose: 20 mg Polyethylene Glycol (Miralax) 17 gm PO DAILY [facility] Stop: 07/07/18 16:43 Last Admin: 07/05/18 09:39 Dose: 17 gm Prednisone (Prednisone Tab) 40 mg PO DAILY [facility] Last Admin: 07/05/18 09:35 Dose: 40 mg - Labs Labs: 07/05/18 06:30 07/05/18 06:30 PT 12.6 SECONDS (9.4-12.5) H 06/30/18 20:24 INR 1.10 06/30/18 20:24 APTT 29.9 Seconds (25.1-36.5) 06/30/18 20:24
--- NOTE | 2018-07-05 15:26 | CP.PCM.PN ---
Subjective - Date & Time of Evaluation Date of Evaluation: 07/05/18 Time of Evaluation: 15:00 - Subjective Subjective: Lethargic, rouses when name is called. He was refusing BIPAP Objective - Vital Signs/Intake and Output Vital Signs (last 24 hours): Temp Pulse Resp BP Pulse Ox 99 F 60 25 H 145/63 90 L 07/05/18 07:00 07/05/18 12:17 07/05/18 12:17 07/05/18 12:00 07/05/18 07:00 Intake and Output: 07/05/18 07/05/18 06:59 18:59 Intake Total 480 Output Total 650 Balance -170 - Medications Medications: Current Medications Acetazolamide (Diamox 500 Mg Inj) 250 mg IV DAILY [facility] Stop: 07/08/18 10:01 Last Admin: 07/05/18 14:23 Dose: 250 mg Amlodipine Besylate (Norvasc) 10 mg PO DAILY [facility] Last Admin: 07/05/18 10:24 Dose: 10 mg Apixaban (Eliquis) 5 mg PO BID [facility]; Protocol Arformoterol Tartrate (Brovana) 15 mcg IH [id number] [facility] Last Admin: 07/05/18 08:47 Dose: 15 mcg Aspirin (Ecotrin) 81 mg PO DAILY [facility] Last Admin: 07/05/18 09:39 Dose: 81 mg Atorvastatin Calcium (Lipitor) 20 mg PO HS [facility] Last Admin: 07/04/18 22:25 Dose: 20 mg Budesonide (Pulmicort Respules) 0.5 mg IH [id number] [facility] Last Admin: 07/05/18 08:47 Dose: 0.5 mg Cholecalciferol (Vitamin D) 1,000 intlu PO DAILY [facility] Last Admin: 07/05/18 09:40 Dose: 1,000 intlu Metoprolol Succinate (Toprol Xl) 50 mg PO DAILY [facility] Pantoprazole Sodium (Protonix Ec Tab) 20 mg PO 0600 [facility] Last Admin: 07/05/18 05:19 Dose: 20 mg Paroxetine HCl (Paxil) 20 mg PO DAILY [facility] Last Admin: 07/05/18 09:35 Dose: 20 mg Polyethylene Glycol (Miralax) 17 gm PO DAILY [facility] Stop: 07/07/18 16:43 Last Admin: 07/05/18 09:39 Dose: 17 gm Prednisone (Prednisone Tab) 40 mg PO DAILY [facility] Last Admin: 07/05/18 09:35 Dose: 40 mg - Labs Labs: 07/05/18 06:30 07/05/18 06:30 PT 12.6 SECONDS (9.4-12.5) H 06/30/18 20:24 INR 1.10 06/30/18 20:24 APTT 29.9 Seconds (25.1-36.5) 06/30/18 20:24 - Constitutional Appears: Cachectic, Chronically Ill - Eye Exam Eye Exam: Normal appearance, PERRL - ENT Exam ENT Exam: Mucous Membranes Moist - Respiratory Exam Respiratory Exam: Decreased Breath Sounds - Cardiovascular Exam Cardiovascular Exam: REGULAR RHYTHM, +S1, +S2 - GI/Abdominal Exam GI & Abdominal Exam: Soft, Normal Bowel Sounds - Skin Skin Exam: Dry, Pallor Assessment and Plan - Assessment and Plan (Free Text) Assessment: 83 year old male with history of COPD,CAD, pulmonary hypertension who is admitted with COPD exacerbation, CHF,shortness of breath. SERA, T Reji and I spoke with daughter via phone conference. Daughter is amenable to hospice services, but unable care for patient at home. Daughter interested in NH placement. Daughter stated that neither she or her father have finances to pay for [facility] room and board. Daughter in the process of applying for medicaid services Option for [facility] also presented. Daughter will pursue all options for placement with hospice care. Time spent with family in goals of care and end of life counseling Plan: Goals of care Continue Lasix, Norvasc, Toprol. BIPAP as needed, bronchodilators, steroids DVT prophylaxis
[2018-07-06] MEDS: Pantoprazole 20 mg EC Tab PO SCH (05:51)
[2018-07-06 06:47] LABS: ARTERIAL BLOOD GAS HCO3 28.3 mmol/L (21-28); ARTERIAL BLOOD GAS HEMOGLOBIN 8.5 g/dL (11.7-17.4); ARTERIAL BLOOD GAS O2 CAPACITY 11.7 mL/dl (16-24); ARTERIAL BLOOD GAS O2 CONTENT 11.4 ML/dl (15-23); ARTERIAL BLOOD GAS O2 SAT 97.8 % (95-98); ARTERIAL BLOOD GAS PCO2 55 mm/Hg (35-45); ARTERIAL BLOOD GAS PH 7.32 (7.35-7.45)
[2018-07-06 07:46] LABS: GRAN # 8.5 (1.4-6.5); GRAN % 84.5 % (50.0-68.0); HEMOGLOBIN 11.6 g/dL (14.0-18.0); LYMPH # 0.6 (1.2-3.4); LYMPH % 5.9 % (22.0-35.0); MEAN CELL VOLUME 104.8 fl (80.0-105.0); MEAN CORPUSCULAR HEMOGLOBIN 29.3 pg (25.0-35.0); MEAN PLATELET VOLUME 10.6 fl (7.0-11.0); MONO % 9.6 % (1.0-6.0); RBC 3.96 10^6/uL (3.5-6.1); WHITE BLOOD COUNT 10.1 10^3/uL (4.5-11.0)
[2018-07-06 08:12] LABS: ALBUMIN 3.6 g/dL (3.0-4.8); CALCIUM 10.2 mg/dL (8.4-10.5)
[2018-07-06] MEDS: Budesonide 0.5 mg/2 ml Inhal Susp UD IH SCH ×2 (08:12→19:59)
[2018-07-06] MEDS: Arformoterol 15 mcg/2 ml Inh Sol IH SCH ×2 (08:12→19:59)
--- NOTE | 2018-07-06 08:30 | RAD ---
Date of service: 07/06/2018 HISTORY: f/u COMPARISON: Portable chest 07/05/2018. FINDINGS: LUNGS: Right pleural effusion appears improved with limited left pleural effusion unchanged. Underlying bilateral basilar atelectasis or infiltrates remain difficult to exclude. No pneumothorax bilaterally. CARDIOVASCULAR: Calcific atherosclerotic changes are seen related to the thoracic aorta. Cardiac size appears stable with borderline improvement in pulmonary vascular congestion. Pacemaker reiterated. Prosthetic cardiac valve reiterated. OSSEOUS STRUCTURES: Gross thoracolumbar scoliotic deformity again evident. VISUALIZED UPPER ABDOMEN: Normal. OTHER FINDINGS: None. IMPRESSION: Mild improvement in right pleural effusion with small pleural effusion unchanged. CHF pattern borderline improved. Underlying atelectasis or infiltrates remain at the bilateral bases.
[2018-07-06] MEDS: Cholecalciferol 1,000 INTLU TAB PO SCH (09:42)
[2018-07-06] MEDS: Metoprolol Succinate 25 mg XL Tab PO SCH (09:43)
[2018-07-06] MEDS: POLYETHYLENE GLYCOL 3350 17 GM/Dose PACKET PO SCH (09:44)
--- NOTE | 2018-07-06 10:00 | PN ---
DATE: 07/06/2018(265am-455am) SUBJECTIVE: The patient appears comfortable this morning. He is not short of breath at rest. He is mildly confused. PHYSICAL EXAMINATION: VITAL SIGNS: Temperature is 98, pulse is 74, respirations 18, blood pressure 153/76. Oxygen saturation on BiPap - 96%. HEENT: Normocephalic, atraumatic. No JVD. CARDIOVASCULAR: Systolic ejection murmur at the lower left sternal border. Positive S3 gallop. LUNGS: Minimal/less crackles at the bases. Minimal/less rhonchi. No wheezing. EXTREMITIES: Mild edema. No cyanosis, no clubbing. Calves are nontender to palpation. GASTROINTESTINAL: Abdomen is soft, nontender and nondistended. Bowel sounds are positive. SKIN: No acute rash. NEUROLOGIC: Exam limited at the present time. PERTINENT LABORATORY DATA: Chest x-ray was done this morning and reviewed. The chest x-ray remains with mild pulmonary vascular congestion and small bilateral pleural effusions. Arterial blood gas was done this morning on BiPap/35% oxygen. Results are: PH 7.32, pCO2 of 55, pO2 of 80. IMPRESSION: 1. Respiratory failure. 2. Acute congestive heart failure. 3. Advanced chronic obstructive pulmonary disease. 4. Mild anemia. PLAN: The patient appears comfortable this morning. He is not short of breath at rest. He does remain mildly confused. He does state to feeling better overall. I did discuss the case with the night nurse at length. The night nurse stated that the patient had a pretty good night. I did review the chest x-ray as above. The chest x-ray remains with mild pulmonary vascular congestion and small bilateral pleural effusions. Official results are pending. I have also reviewed the arterial blood gas. There is a mild respiratory acidosis present. However, the pCO2 has significantly declined, and there is adequate oxygenation. We will try to transition the patient to nasal cannula this morning if tolerated. On physical exam, there is no significant bronchospasm noted. I will continue the current nebulizer treatments for now. The patient is also on oral prednisone. I would continue with the treatment for congestive heart failure as per Cardiology. Input by Dr. Friedman is noted. The patient is now on acetazolamide. Clinical status of the patient is improved - compared to his initial presentation. However, given the above, the future status/prognosis for this patient remains very guarded. I will discuss the above with the entire ICU team in the next few moments. I will also discuss the above with the attending physician. Clint Jalloh MD [facility]
--- NOTE | 2018-07-06 10:23 | PN ---
DATE: 07/06/2018 SUBJECTIVE: An 83-year-old white male is seen in the Intensive Care Unit. The patient is using BiPAP at night. Congestive heart failure, he has respiratory failure and mild renal insufficiency. The patient is resting with BiPAP at night who has had severe CO2 narcosis and CO2 gas is down to 50, 55. He is saturating at about 90% on 1.5 liters. He is comfortable. He is able to use his BiPAP at night and he does have elevated BUN and creatinine at 53 and 1.4. His serum bicarb is 56. His hemoglobin is stable. His white count is stable. His last blood gas showed a CO2 of 55 down from 99. His pO2 is 80. His pH is 7.32. He is on 1.5 liters of oxygen. He is markedly improved. He is awake and oriented. He is tolerating his diet well. PHYSICAL EXAMINATION: CHEST: His chest shows decreased breath sounds with some rales at the bases. HEART: Regular sinus rhythm. ABDOMEN: Soft. EXTREMITIES: No cyanosis, clubbing, or edema. IMPRESSION AND PLAN: The patient is a DNR/DNI by the family. He was seen by Gabi Davidson for Palliative Care and we will try and attempt to transfer him to the floor and continue his pulmonary toilet and treatment for heart failure and respiratory failure. Ramy Michael MD
--- NOTE | 2018-07-06 14:56 | CP.PCM.PCO ---
Physician Communication Note - Physician Communication Note Physician Communication Note: patient medically cleared for discharge,with current rx to [facility],
--- NOTE | 2018-07-06 15:10 | CP.PCM.PCO ---
Physician Communication Note - Physician Communication Note Physician Communication Note: Spoke to pt's dtr,Naheed madison is medically cleared today for [facility]
--- NOTE | 2018-07-06 21:02 | PN ---
DATE: 07/06/2018 SUBJECTIVE: The patient is seen sitting in a chair in the CCU. He feels somewhat better. His dyspnea is improved. CURRENT MEDICATIONS: Include Brovana, Diamox 250 mg daily, Ecotrin, Eliquis 5 mg b.i.d., Lipitor, Norvasc 10 mg daily, Paxil 20 mg daily, prednisone 40 mg daily, Protonix 20 mg daily, Pulmicort, and Toprol-XL 50 mg daily. PHYSICAL EXAMINATION: GENERAL: He is a chronically ill-appearing elderly man. VITAL SIGNS: His blood pressure is 144/66 with pulse of 70 with ventricular pacing, respirations 16, he has underlying atrial flutter present. NECK: No JVD. CHEST: Bilateral scattered rhonchi noted with diminished breath sounds at the bases. HEART: PMI displaced laterally with systolic murmur left sternal border. ABDOMEN: Soft and nontender. Normoactive bowel sounds. EXTREMITIES: Trace ankle edema. DIAGNOSTIC DATA: White count is 10.1, hemoglobin and hematocrit is 11.6 and 41.5 with platelet count of 227,000. Arterial blood gas revealed pH of 7.32, pCO2 of 55, pO2 of 80, potassium of 3.9, BUN and creatinine 53 and 1.4 with bicarbonate of 56. IMPRESSION: 1. Recent respiratory insufficiency, multifactorial given advanced chronic obstructive pulmonary disease, restrictive lung disease, congestive heart failure, and CO2 retention. 2. Known coronary artery disease, status post remote percutaneous coronary intervention with right coronary artery. 3. History of aortic stenosis, status post aortic valve replacement with known mild prosthetic aortic valve with bioprosthetic stenosis. 4. Conduction system disease, status post permanent pacemaker implant. 5. Paroxysmal atrial flutter, rest of problems as noted. RECOMMENDATIONS: His current medications will continue. DNR/DNI order is in place. His prognosis is limited. Comfort care is advised. We will continue to follow and make further recommendations as appropriate. Chinedu Friedman MD
[2018-07-07] MEDS: Pantoprazole 20 mg EC Tab PO SCH (05:33)
[2018-07-07 06:23] VITALS: O2SAT 95
[2018-07-07 07:14] LABS: GRAN # 8.35 (1.4-6.5); GRAN % 82.3 % (50.0-68.0); LYMPH # 0.7 (1.2-3.4); LYMPH % 6.5 % (22.0-35.0); MEAN CELL VOLUME 103.9 fl (80.0-105.0); MEAN CORPUSCULAR HEMOGLOBIN 28.9 pg (25.0-35.0); MEAN CORPUSCULAR HGB CONC 27.8 g/dl (31.0-37.0); MEAN PLATELET VOLUME 10.4 fl (7.0-11.0); MONO # 1.1 (0.1-0.6); MONO % 11.2 % (1.0-6.0); RBC 3.81 10^6/uL (3.5-6.1); RED CELL DISTRIBUTION WIDTH 14.2 % (11.5-14.5); WHITE BLOOD COUNT 10.2 10^3/uL (4.5-11.0)
[2018-07-07 07:50] LABS: ALB/GLOB RATIO 1.1 (1.1-1.8); ALBUMIN 3.5 g/dL (3.0-4.8); CALCIUM 10.2 mg/dL (8.4-10.5)
[2018-07-07] MEDS: Budesonide 0.5 mg/2 ml Inhal Susp UD IH SCH (08:13)
[2018-07-07] MEDS: Arformoterol 15 mcg/2 ml Inh Sol IH SCH (08:13)
--- NOTE | 2018-07-07 08:56 | PN ---
DATE: 07/07/2018 PULMONARY NOTE SUBJECTIVE: The patient is lethargic this morning. He is not short of breath at rest. He is arousable. OBJECTIVE: VITAL SIGNS: Temperature is 98.4, pulse 66, respirations 19, blood pressure 127/63. Oxygen saturation on BiPAP is 95%. HEENT: Normocephalic, atraumatic. NECK: No JVD. CARDIOVASCULAR: Systolic ejection murmur at the lower left sternal border. Positive S3 gallop. LUNGS: Minimal crackles at the bases. Minimal/less rhonchi. No wheezing. EXTREMITIES: Mild edema. No cyanosis, no clubbing. Calves are nontender to palpation. GASTROINTESTINAL: Abdomen is soft, nontender, and nondistended. Bowel sounds are positive. SKIN: No acute rash. NEUROLOGIC: Limited at the present time. PERTINENT LABORATORY DATA: Chest x-ray was done this morning and reviewed. There is decreased pulmonary vascular congestion noted. There are small bilateral pleural effusions. Arterial blood gas - pending. IMPRESSION: 1. Respiratory failure. 2. Acute congestive heart failure. 3. Advanced chronic obstructive pulmonary disease. 4. Mild anemia. PLAN: The patient appears lethargic this morning. He is not short of breath at rest. He is arousable. I did discuss the case with the night nurse at length. The night nurse stated that the patient is doing poorly overall. I did review the chest x-ray as above. The chest x-ray is improved with decreased pulmonary vascular congestion. Small pleural effusions are noted. I would continue with the treatment for congestive heart failure as per Cardiology. Input by Dr. Friedman is noted. On physical exam, there is no significant bronchospasm noted. I will change the patient to low-dose intravenous steroids - as I am not sure that he can take oral medications this morning. Inputs by Internal Medicine and palliative care are also noted. The patient remains critically ill at this point in time. Unfortunately, the future status/prognosis for this patient appears poor. I will discuss the above with the attending physician. Clint Jalloh MD [facility]
[2018-07-07] MEDS: POLYETHYLENE GLYCOL 3350 17 GM/Dose PACKET PO SCH (09:51)
[2018-07-07] MEDS: Cholecalciferol 1,000 INTLU TAB PO SCH (09:52)
[2018-07-07] MEDS: Metoprolol Succinate 25 mg XL Tab PO SCH (09:52)
[2018-07-07] MEDS ORDERED: MethylPREDNISolone 40 mg Vial IVP SCH (10:00)
--- NOTE | 2018-07-07 10:28 | RAD ---
Date of service: 07/07/2018 HISTORY: f/u COMPARISON: 07/06/2018 FINDINGS: LUNGS: Right lower lobe infiltrate PLEURA: Small bilateral pleural effusions right greater than left CARDIOVASCULAR: No aortic atherosclerotic calcification present. Mild cardiomegaly no pulmonary vascular congestion. OSSEOUS STRUCTURES: Sternal wires VISUALIZED UPPER ABDOMEN: Normal. OTHER FINDINGS: Dual lead pacemaker IMPRESSION: Right lower lobe infiltrate and small bilateral pleural effusions
[2018-07-07] MEDS ORDERED: Metoprolol Succinate 50 mg XL Tab PO SCH (11:41)
[2018-07-07 12:15] VITALS: BP 129/61; RESP 18; TEMP 97.2
[2018-07-07 13:54] VITALS: PULSE 69
--- NOTE | 2018-07-07 20:12 | PN ---
DATE: 07/07/2018 SUBJECTIVE: The patient is seen lying in bed on telemetry. He is somnolent this morning, but arousable. CURRENT MEDICATIONS: Include Brovana, Diamox 250 mg daily, Ecotrin, Eliquis 5 mg b.i.d., Lipitor, Norvasc, Paxil, prednisone, Protonix, Pulmicort, Solu-Medrol, and Toprol-XL. OBJECTIVE: GENERAL: He is a chronically ill-appearing very elderly man. VITAL SIGNS: Blood pressure is 130/60 with a pulse of 70 with ventricular pacing, respirations are 16, and he is afebrile. NECK: No JVD. CHEST: Bilateral scattered rhonchi heard. HEART: PMI displaced laterally with systolic murmur at the base. ABDOMEN: Soft and nontender. Bowel sounds are present. EXTREMITIES: Trace ankle edema. DIAGNOSTIC DATA: Potassium 4.1. BUN and creatinine 57 and 1.5. White count 10.2, hemoglobin and hematocrit 11 and 39.6 with platelet count of 205,000. IMPRESSION: 1. Severe respiratory insufficiency due to combination of advanced chronic obstructive pulmonary disease, restrictive lung disease, and congestive heart failure. 2. Chronic CO2 retention. 3. Known coronary disease, status post remote percutaneous coronary intervention. 4. History of aortic stenosis, status post aortic valve replacement with mild prosthetic valve stenosis. 5. Conduction system disease, status post permanent pacemaker implant. 6. Persistent atrial flutter. RECOMMENDATIONS: His current medications will continue for now. DNR order is in place. Comfort care would appear to be most appropriate at this time. We will be happy to provide ongoing followup as needed. Chinedu Friedman MD
--- NOTE | 2018-07-07 23:01 | DS ---
HISTORY OF PRESENT ILLNESS: The patient is an 83-year-old, seen and examined, minimally responsive. No chest pain. No shortness of breath. The patient was basically admitted on 07/01/2018. Since he has acute exacerbation of COPD and congestive heart failure, he was given IV diuretic and nebulizer treatment, but the patient's overall condition improved minimally. He is being transferred to LTAC. today. PHYSICAL EXAMINATION: GENERAL: He is minimally responsive and not in any distress. VITAL SIGNS: He is afebrile, pulse 60, respiration 19, blood pressure 127/63. LUNGS: Bilateral fair expiratory airflow. HEART: S1, S2 audible. ABDOMEN: Soft, nontender. No rebound, no guarding. EXTREMITIES: Bilateral leg, no edema. NEUROLOGIC: He is awake lethargic, minimally responsive. LABORATORY DATA: WBC 10.2, hemoglobin 11.2, hematocrit 39.6 and platelet 205. Chemistry; sodium 143, potassium 4.1, chloride 85, CO2 of 56, BUN 57 and creatinine 1.5. Blood sugar of 93. Blood culture and urine cultures are negative. ASSESSMENT: 1. Chronic obstructive pulmonary disease exacerbation. 2. Congestive heart failure. 3. Worsening dementia. 4. Bilateral pleural effusion. 5. Respiratory insufficiency. 6. Coronary artery disease. 7. Status post angioplasty. 8. Aortic stenosis. PLAN: Currently, the patient is on Diamox 250 daily. He is getting Brovana isoniazid spray. He is on Eliquis, atorvastatin, amlodipine, Paxil, Protonix, and he is on IV steroids that can be changed . We will continue since he is not alert to tolerate lot of p.o. medication. He is being sent to LTAC today. Bill Trujillo MD
== END 2018-07-07 18:04 | DRG 292 ==
LOC: ED 19:44 → ERH 22:31 → 2RNO 07-01 00:50 → CCU 07-01 10:49 → 2RSO 07-07 00:26
PROVIDERS: ADMIT Internal Medicine; ATTEND Internal Medicine
PROC: 5A09457 Assistance with Respiratory Ventilation, 24-96 Consecutive Hours, Continuous Positive Airway Pressure (ICD-10-PCS; principal; 2018-07-01)
PROC: 3E0F7GC Introduction of Other Therapeutic Substance into Respiratory Tract, Via Natural or Artificial Opening (ICD-10-PCS; 2018-07-02)
DX: I11.0 Hypertensive heart disease with heart failure (principal); J44.1 Chronic obstructive pulmonary disease with (acute) exacerbation; J96.12 Chronic respiratory failure with hypercapnia; E87.4 Mixed disorder of acid-base balance; I48.92 Unspecified atrial flutter; I50.43 Acute on chronic combined systolic (congestive) and diastolic (congestive) heart failure; I27.20 Pulmonary hypertension, unspecified; I25.10 Atherosclerotic heart disease of native coronary artery without angina pectoris; F03.90 Unspecified dementia, unspecified severity, without behavioral disturbance, psychotic disturbance, mood disturbance, and anxiety; I73.9 Peripheral vascular disease, unspecified; D64.9 Anemia, unspecified; E78.5 Hyperlipidemia, unspecified; J98.4 Other disorders of lung; K21.9 Gastro-esophageal reflux disease without esophagitis; M41.9 Scoliosis, unspecified; Z99.81 Dependence on supplemental oxygen; I25.2 Old myocardial infarction; Z66 Do not resuscitate; Z86.73 Personal history of transient ischemic attack (TIA), and cerebral infarction without residual deficits; Z87.01 Personal history of pneumonia (recurrent); Z95.0 Presence of cardiac pacemaker; Z95.2 Presence of prosthetic heart valve; Z95.1 Presence of aortocoronary bypass graft; Z87.891 Personal history of nicotine dependence